=== PATIENT | female | born 1940 | race Caucasian/White ===

== ENCOUNTER → 2016-06-05 | Outpatient (CLI) | payer OTHER ==
[~2016-06-05] MED LIST: BIMA0.01 OPB; CHOL4POW3 PO; GLC500 PO; GLCSR5 PO; GLIP1TAB85 PO; HYZ/50125 PO; LOSARTAN-HCTZ PO; LOVA10TA2 PO; METF-384 PO; MONT1TAB5 PO; MULT-506 PO; PRAV10TA39 PO; SNG10 PO; TMPOPS15 OPB; XLTOPS OPB
[2016-06-05 13:23] LABS: URINE APPEARANCE CLEAR (CLEAR); URINE BILIRUBIN NEG (NEG); URINE COLOR YELLOW; URINE EPITHELIAL CELL AUTO 20-30 /lpf (0-5); URINE NITRITE NEG (NEG); URINE SPECIFIC GRAVITY 1.012 (1.000-1.030); UROBILINOGEN NEG (NEG)
[2016-06-05 13:28] LABS: MANUAL MICROSCOPIC REQUIRED? NO; REVIEW REQ? NO
[2016-06-05 13:43] LABS: BLOOD UREA NITROGEN 17 mg/dl (7-18); GLUCOSE 154 mg/dl (70-99)
[2016-06-05 13:44] LABS: BUN/CREATININE RATIO 15.1 (10-20); CALCIUM 9.8 mg/dl (8.5-10.1); CARBON DIOXIDE 25 mmol/L (21-32); CHLORIDE 106 mmol/L (98-107); SODIUM 142 mmol/L (136-145)
== END | disposition home or self-care (01) ==
LOC: C.LAB1850 12:18
PROVIDERS: ATTEND Allergy & Immunology Allergy
DX: R35.0 Frequency of micturition (principal); R07.9 Chest pain, unspecified; R60.9 Edema, unspecified

== ENCOUNTER → 2016-06-27 | Outpatient (CLI) | payer OTHER ==
[~2016-06-27] MED LIST changes: +CHOL1TAB42 PO; +CHOLPOW PO; +CINN1CAP2 PO; +CYAN100020 PO; +GLC/500 PO; +GLIP-199 PO; +LORA-554 PO; +LOVA10TA3 PO; +NMN5 PO
[2016-06-27 10:52] LABS: URINE APPEARANCE CLEAR (CLEAR); URINE BILIRUBIN NEG (NEG); URINE COLOR YELLOW; URINE NITRITE NEG (NEG); URINE SPECIFIC GRAVITY 1.026 (1.000-1.030); UROBILINOGEN NEG (NEG); ZZUR CULT IF INDIC CLEAN CATCH NO
[2016-06-27 10:53] LABS: MANUAL MICROSCOPIC REQUIRED? YES; REVIEW REQ? NO
[2016-06-27 10:54] LABS: URINE BACTERIA 1+ (NEG); URINE RBC 0-4 /hpf (0-4)
== END | disposition home or self-care (01) ==
LOC: C.LAB1850 09:24
PROVIDERS: ATTEND Physician Assistant Medical
DX: R31.29 Other microscopic hematuria (principal); M79.659 Pain in unspecified thigh

== ENCOUNTER → 2016-08-08 | Outpatient (CLI) | payer OTHER ==
[2016-08-08 09:50] LABS: BASO % 1.2 %; BASO ABS # 0.09 K/uL (0-0.2); COMPLETE YES; EOS % 2.3 %; HEMATOCRIT 39.2 % (37-47); IG% 0.3 %; LYMPH % 25.6 %; LYMPH ABS # 1.91 K/uL (1.2-3.4); MEAN CELL VOLUME 92.5 fL (80-100); MEAN CORPUSCULAR HEMOGLOBIN 31.1 pg (25-34); MEAN CORPUSCULAR HGB CONC 33.7 g/dl (32-36); MEAN PLATELET VOLUME 10.4 fL (7.4-10.4); MONO % 7.1 %; NEUT % 63.5 %; PLATELET COUNT 266 K/uL (130-400); RED BLOOD COUNT 4.24 M/uL (4.2-5.4); WHITE BLOOD COUNT 7.47 K/uL (4.8-10.8)
[2016-08-08 10:02] LABS: ALT/SGPT 27 U/L (12-78); AST/SGOT 16 U/L (15-37); BLOOD UREA NITROGEN 20 mg/dl (7-18); BUN/CREATININE RATIO 16.9 (10-20); CALCIUM 9.1 mg/dl (8.5-10.1); CARBON DIOXIDE 29 mmol/L (21-32); CHLORIDE 111 mmol/L (98-107); GLUCOSE 136 mg/dl (70-99); SODIUM 145 mmol/L (136-145)
[2016-08-08 10:04] LABS: ALB/GLOB RATIO 1.4 (0.9-2); ALKALINE PHOSPHATASE 64 U/L (45-117); CHOLESTEROL 161 mg/dl (0-200); CHOLESTEROL/HDL RATIO 2.9; HDL CHOLESTEROL 56 mg/dl; LDL CHOLESTEROL CALCULATED 68 mg/dl; TRIGLYCERIDES 183 mg/dl (0-150); VERY LOW DENSITY LIPOPROT CALC 37 mg/dl
[2016-08-08 10:27] LABS: ESTIMATED AVERAGE GLUCOSE 169 mg/dl; HA1C FLAG Normal (Normal)
[2016-08-08 10:38] LABS: RATIO 37.1 mcg/mg (0-30.0)
== END | disposition home or self-care (01) ==
LOC: C.LAB 08:17
PROVIDERS: ATTEND Internal Medicine Pulmonary Disease
DX: I10 Essential (primary) hypertension (principal); E78.5 Hyperlipidemia, unspecified; E11.9 Type 2 diabetes mellitus without complications; J30.9 Allergic rhinitis, unspecified

== ENCOUNTER → 2016-08-29 | Outpatient (CLI) | payer OTHER ==
--- NOTE | 2016-08-29 16:16 | MAMMOGRAPHY REPORT ---
BILATERAL DIGITAL SCREENING MAMMOGRAM WITH CAD: 08/29/2016 CLINICAL HISTORY: Routine screening. Patient has no complaints. TECHNIQUE: Bilateral CC and MLO views were obtained. Repeat CC views were obtained to remove skin fo lds. Current study was also evaluated with a Computer Aided Detection (CAD) system. COMPARISON: Comparison is made to exams dated: 08/26/2015 mammogram, 08/24/2014 mammogram, 08/21/2013 genoveva mogram, 08/14/2012 ultrasound, 08/14/2012 mammogram, and 08/08/2012 mammogram - [facility]ter. BREAST COMPOSITION: The tissue of both breasts is almost entirely fatty. FINDINGS: There are moderate vascular calcifications in the breasts. No suspicious mass, architectur al distortion or cluster of microcalcifications is seen. IMPRESSION: ACR BI-RADS CATEGORY 1: NEGATIVE There is no mammographic evidence of malignancy. A 1 year screening mammogram is recommended. The pa tient will receive written notification of the results. Approximately 10% of breast cancers are not detected with mammography. A negative mammographic report should not delay biopsy if a clinically suggestive mass is present. Adele Smith M.D. ay/:08/29/2016 16:00:18 Physician Office Nurse: Justina RUBY(Carmine)(M), [facility] letter sent: Normal 1/2 BI-RADS Code: ACR BI-RADS Category 1: Negative
== END | disposition home or self-care (01) ==
LOC: C.MAMM 08:57
PROVIDERS: ATTEND Obstetrics & Gynecology
DX: Z12.31 Encounter for screening mammogram for malignant neoplasm of breast (principal)

== ENCOUNTER → 2016-09-15 | Outpatient (CLI) | payer OTHER ==
--- NOTE | 2016-09-15 14:48 | DIAGNOSTIC IMAGING REPORT ---
MRI LUMBAR SPINE WITHOUT IV CONTRAST CLINICAL HISTORY: Chronic low back pain with bilateral lower extremity radiculopathy. COMPARISON STUDY: Abdominal CT dated 09/11/2006. TECHNIQUE: MRI of the lumbar spine is performed utilizing various T1 and T2-weighted sequences in the axial and sagittal planes. IV contrast was not administered for this examination. FINDINGS: Lumbar spine: Vertebral body height and alignment are maintained throughout the lumbar spine. Marrow signal intensity is heterogeneous. Anterior osteophytes are seen throughout. There is no evidence of spondylolysis. The transverse and spinous processes are intact as imaged. Chronic degenerative endplate change is seen at all levels. Mild endplate edema is noted at L3-L4 and L4-L5. Small hemangiomas are identified in the bodies of T10 and T11. Intervertebral discs: Degenerative disc desiccation and mild loss of height is seen throughout the lumbar spine. Loss of height is greatest at L3-L4. Spinal cord: The visualized spinal cord is normal in morphology and signal intensity. The conus medullaris terminates at the level of T12. L1-L2: Unremarkable. L2-L3: There is a small posterior disc bulge. No significant acquired compromise of the central canal is seen. Facet arthropathy is of no consequence. The neural foramina are patent. L3-L4: There is broad-based posterior disc bulge with annular fissure. There is no significant acquired compromise of the central canal at this level. Facet arthropathy is of no consequence. The neural foramina are patent. L4-L5: There is a small posterior disc bulge with annular fissure. In conjunction with hypertrophy of the ligamentum flavum there is minimal acquired compromise of the central canal at this level. The minimum AP diameter measures up to 9.5 mm. The disc bulge abuts the transiting right L5 nerve root. Facet arthropathy is of no consequence. The neural foramina are patent. L5-S1: There is a small posterior disc bulge. This causes mild bilateral subarticular stenosis and may abut the exiting bilateral L5 nerve roots. Facet arthropathy causes minimal bilateral neural foraminal stenosis. There is no significant acquired compromise of the central canal at this level. Sacrum: Visualized sacrum is normal in morphology and signal intensity. Soft tissues: There is fatty atrophy of the paraspinous musculature. The kidneys demonstrate cortical atrophy. Parapelvic cysts are noted bilaterally. IMPRESSION: 1. Marrow signal intensity is heterogeneous. No destructive bony lesion is seen. 2. Degenerative disc disease with chronic endplate change and mild endplate edema as above. 3. Mild multilevel lumbosacral spondylosis as above. See discussion for detailed level by level analysis. Dictated: 09/15/2016 2:24 PM Transcribed: 09/15/2016 2:48 PM [email or web address] Electronically signed by: Gabe Noyola M.D. 09/15/2016 2:55 PM Dictated Date/Time: 09/15/2016 2:24 PM
== END | disposition home or self-care (01) ==
LOC: C.MRI 13:24
PROVIDERS: ATTEND Pain Medicine Interventional Pain Medicine
DX: M48.06 Spinal stenosis, lumbar region (principal); M51.36 Other intervertebral disc degeneration, lumbar region; M51.27 Other intervertebral disc displacement, lumbosacral region

== ENCOUNTER → 2016-10-05 | Outpatient (CLI) | payer OTHER ==
[~2016-10-05] MED LIST changes: -CHOL1TAB42 PO; -CHOLPOW PO; -CINN1CAP2 PO; -CYAN100020 PO; -GLC/500 PO; -GLIP-199 PO; -LORA-554 PO; -LOVA10TA3 PO; -NMN5 PO
[2016-10-05 14:58] LABS: BLOOD UREA NITROGEN 24 mg/dl (7-18)
== END | disposition home or self-care (01) ==
LOC: C.LAB 13:05
PROVIDERS: ATTEND Physician Assistant
DX: R41.3 Other amnesia (principal)

== ENCOUNTER 2016-10-06 09:21 | Emergency (ER) | payer OTHER ==
[~2016-10-06] VITALS: Ht 167.6 cm; Wt 67.4 kg
[~2016-10-06 09:21] MED LIST changes: -CHOL4POW3 PO; -HYZ/50125 PO; -LOVA10TA2 PO; -MONT1TAB5 PO; -MULT-506 PO; -TMPOPS15 OPB
[2016-10-06 09:28] VITALS: TEMP 36.4; Ht 167.6 cm; Wt 67.4 kg
[2016-10-06] MEDS ORDERED: XLTOPS OPB (10:14)
[2016-10-06] MEDS ORDERED: CHOL4POW3 PO (10:14)
[2016-10-06] MEDS ORDERED: HYZ/50125 PO (10:14)
[2016-10-06] MEDS ORDERED: LOVA10TA2 PO (10:14)
[2016-10-06] MEDS ORDERED: MONT1TAB5 PO (10:14)
[2016-10-06] MEDS ORDERED: TMPOPS15 OPB (10:14)
[2016-10-06] MEDS ORDERED: MULT-506 PO (10:15)
--- NOTE | 2016-10-06 10:20 | EMERGENCY ROOM VISIT NOTE ---
History Report prepared by Chente: Gregory Juarez Under the Supervision of: Dr. Josue Villagomez M.D. First contact with patient: 10:02 Chief Complaint: RIB PAIN Stated Complaint: SORENESS TO RIGHT HIP History of Present Illness The patient is a 76 year old female who presents to the Emergency Room with complaints of worsening right rib pain starting yesterday. The patient states that she tripped up the stairs four days ago, and she states that it did not hurt until yesterday. The patient denies any shortness of breath, hip pain, or abdominal pain. Source of History: patient Onset: yesterday Position: other (right rib) Timing: worsening Associated Symptoms: No SOB, No abdominal pain Review of Systems All systems have been listed, reviewed, and are negative other than those previously mentioned. Please see Additional Medical History Sheet. Past Medical & Surgical Medical Problems: (1) Benign hypertension (2) Diabetes mellitus (3) Extraction of cataract Surgical Problems: (1) History of cholecystectomy (2) Hysterectomy Family History Cancer Diabetes mellitus Gallbladder disease Heart disease Hypertension Social History Smoking Status: Former Smoker Alcohol Use: none Marital Status: Housing Status: lives with significant other Occupation Status: retired Current/Historical Medications Scheduled Cholestyramine (Cholestyramine), 1 DOSE PO UD Glipizide Xl (Glucotrol Xl), 1 TAB PO DAILY Hctz/Losartan (Hyzaar 12.5MG/50MG), 1 TAB PO DAILY Latanoprost (Latanoprost), 1 DROP OPB UD Lovastatin (Mevacor), 1 TAB PO QAM Metformin HCl (Metformin HCl), 2 TAB PO DAILY Montelukast Sodium (Montelukast Sodium), 1 TAB PO DAILY Multivitamin (Multivitamin), 1 TAB PO DAILY Timolol Maleate (Timolol 0.5% Oph Soln 15 Ml), 1 DROP OPB UD Allergies Coded Allergies: Sulfa Drugs (Unverified Allergy, Mild, 02/03/14) Physical Exam Vital Signs Date Time Temp Pulse Resp B/P (MAP) Pulse Ox O2 Delivery O2 Flow Rate FiO2 10/06/16 11:45 71 16 152/89 95 10/06/16 09:28 36.4 72 18 177/89 99 Room Air Physical Exam GENERAL: Patient awake, alert, oriented x 3. Patient follows commands. Patient does not appear toxic. Patient is adequately hydrated and well- nourished. SKIN: No erythema, pallor, cyanosis or rash HEENT: Normal head, pupils equal, reactive to light and accommodation. LUNGS: Clear to auscultation. No wheezes, no rales, no rhonchi. HEART: No murmurs. No gallops. No rubs ABDOMEN: Bruising over the right 6-9th ribs on the mid-axillary line. There is tenderness in that spot. Soft, nontender. No masses, no rebound, no hepatomegaly or splenomegaly. EXTREMITIES: No signs of trauma or infection. NEUROLOGIC: Cranial nerves II-XII within normal limits. No gross motor sensory function deficits. Medical Decision & Procedures ER Provider Diagnostic Interpretation: X ray results are stated below per my interpretation and the radiologist's interpretation. RIGHT RIBS UNILATERAL WITH PA CHEST CLINICAL HISTORY: 76 years-old Female presenting with FALL Right. TECHNIQUE: Frontal and oblique views of the right ribs and PA view of the chest were obtained. COMPARISON: Chest x-ray from 2013. FINDINGS: Cardiomediastinal silhouette normal. Lungs and pleural spaces clear. Acute fracture of the right lateral seventh rib. Cholecystectomy clips. IMPRESSION: 1. Acute fracture of the right lateral seventh rib. Electronically signed by: Alessandro Cedeno M.D. 10/06/2016 11:04 AM Dictated Date/Time: 10/06/2016 11:00 AM Medications Administered Medications (Trade) Dose Ordered Sig/Jean Route Start Time Stop Time Status Last Admin Dose Admin Ibuprofen (Motrin Tab) 600 mg NOW STAT PO 10/06/16 11:28 10/06/16 11:29 DC 10/06/16 11:44 600 MG ED Course 1002: Past medical records reviewed. The patient was evaluated in room C4. A complete history and physical examination was performed. 1120: Upon reevaluation, the patient appeared to have improvement of her symptoms. I discussed today's findings with her. She verbalized agreement of the treatment plan. She was discharged home. 1128: Ibuprofen 600mg PO Medical Decision Nurses notes reviewed. Medical history sheet reviewed. Differential diagnosis includes but is not limited to: fracture, rib contusion, and pulmonary contusion. Blood Pressure Screening: Patient was found to have an elevated blood pressure and was referred to their primary doctor for recheck and further treatment. Medication Reconciliation: I attest that I have personally reviewed the patient' s current medication list. Clinical findings and imaging match. The patient has a right seventh rib fracture without pneumohemothorax. No evidence of pulmonary contusion. The patient was given ibuprofen here him continue that medication at home. She was advised to follow-up with her family physician regarding follow-up and for her elevated blood pressure. Impression Primary Impression: Closed rib fracture Scribe Attestation The scribe's documentation has been prepared under my direction and personally reviewed by me in its entirety. I confirm that the note above accurately reflects all work, treatment, procedures, and medical decision making performed by me. Departure Information Dispostion Home / Self-Care Referrals Haseeb Mills M.D. (PCP) Forms HOME CARE DOCUMENTATION FORM, IMPORTANT VISIT INFORMATION Patient Instructions ED Fx Rib, My [facility] Additional Instructions 400-600 mg of ibuprofen (2 or 3 Advil) every 6 hours as needed for pain. Follow-up with your family physician within the next 7-10 days for the rib pain and to check your blood pressure.
--- NOTE | 2016-10-06 11:05 | DIAGNOSTIC IMAGING REPORT ---
RIGHT RIBS UNILATERAL WITH PA CHEST CLINICAL HISTORY: 76 years-old Female presenting with FALL Right. TECHNIQUE: Frontal and oblique views of the right ribs and PA view of the chest were obtained. COMPARISON: Chest x-ray from 2014. FINDINGS: Cardiomediastinal silhouette normal. Lungs and pleural spaces clear. Acute fracture of the right lateral seventh rib. Cholecystectomy clips. IMPRESSION: 1. Acute fracture of the right lateral seventh rib. Electronically signed by: Alessandro Cedeno M.D. 10/06/2016 11:04 AM Dictated Date/Time: 10/06/2016 11:00 AM
[2016-10-06] MEDS ORDERED: IBUPROFEN 600 MG TAB PO STA (11:28)
[2016-10-06 11:45] VITALS: BP 152/89; PULSE 71; O2SAT 95
== END 2016-10-06 11:46 | disposition home or self-care (01) ==
LOC: C.EDB 09:22 → C.EDC 11:46
DX: S22.31XA Fracture of one rib, right side, initial encounter for closed fracture (principal); W22.8XXA Striking against or struck by other objects, initial encounter; I10 Essential (primary) hypertension; E11.9 Type 2 diabetes mellitus without complications; Z98.49 Cataract extraction status, unspecified eye; Z90.49 Acquired absence of other specified parts of digestive tract; Z90.710 Acquired absence of both cervix and uterus; Z80.9 Family history of malignant neoplasm, unspecified; Z83.3 Family history of diabetes mellitus; Z82.49 Family history of ischemic heart disease and other diseases of the circulatory system; Z87.891 Personal history of nicotine dependence; Z79.899 Other long term (current) drug therapy

== ENCOUNTER → 2016-10-13 | Outpatient (CLI) | payer OTHER ==
[~2016-10-13] MED LIST changes: -BIMA0.01 OPB; +CHOL4POW3 PO; +GADAVIST IV PRN; -GLCSR5 PO; +HYZ/50125 PO; -LOSARTAN-HCTZ PO; +LOVA10TA2 PO; -METF-384 PO; +MONT1TAB5 PO; +MULT-506 PO; -PRAV10TA39 PO; -SNG10 PO; +TMPOPS15 OPB
--- NOTE | 2016-10-13 09:41 | DIAGNOSTIC IMAGING REPORT ---
BRAIN COMBO CLINICAL HISTORY: R41.3 Memory [id number] COMPARISON STUDY: No previous studies for comparison. TECHNIQUE: Utilizing a 1.5 Nasrin magnet and dedicated coil, multiplanar, multiecho imaging of the brain was performed pre and postcontrast administration. IV administration of 6.5 mL of Gadavist contrast was uneventful. FINDINGS: Diffusion-weighted images are negative for an acute ischemic insult. Mild age-related chronic small vessel change and atrophy. Moderate ventricular prominence raise the possibility of normal pressure hydrocephalus. No significant postcontrast enhancement. IMPRESSION: 1. No evidence for acute ischemic insult. 2. Mild atrophy and chronic small vessel change of aging. 3. Mild hydrocephalus raising the possibility of normal pressure hydrocephalus The above report was generated using voice recognition software. It may contain grammatical, syntax or spelling errors. Electronically signed by: Adan Crow M.D. 10/13/2016 9:40 AM Dictated Date/Time: 10/13/2016 9:35 AM
== END | disposition home or self-care (01) ==
LOC: C.MRIBC 08:46
PROVIDERS: ATTEND Physician Assistant
DX: R41.3 Other amnesia (principal); G91.9 Hydrocephalus, unspecified; G31.9 Degenerative disease of nervous system, unspecified

== ENCOUNTER → 2016-12-22 | Outpatient (CLI) | payer OTHER ==
[~2016-12-22] MED LIST changes: -GADAVIST IV PRN
[2016-12-22 17:10] LABS: LYME DISEASE AB IGM NEG (NEG)
[2016-12-22 17:11] LABS: LYME DISEASE AB IGG NEG (NEG)
[2016-12-25 14:30] LABS: LEAD BLOOD LESS THAN 1 MCG/DL (0-9)
--- NOTE | 2016-12-29 08:33 | CODING QUERY MEDICAL NECESSITY ---
SUPPORTING DIAGNOSIS NEEDED Dr. Mueller, A supporting diagnosis is required for the test/procedure performed on this patient in order for us to be reimbursed by the patient's insurance. Please provide a supporting diagnosis for the following test/procedure listed below next to the test name along with your signature. *If there is no additional diagnosis for this patient that would support the following test/procedure please document that below next to the test/procedure. Test(s)/Procedure(s) that require a supporting diagnosis: * ([id number]) VITAMIN D ASSAY DIAGNOSIS: DATE OF SERVICE: 12/22/16 Provider Signature: Date: Thank you Richard Merida [facility] Information Management Once completed, please kindly fax back to [phone] For questions please call [phone]
== END | disposition home or self-care (01) ==
LOC: C.LAB1850 12:17
PROVIDERS: ATTEND Psychiatry & Neurology Neurology
DX: G62.9 Polyneuropathy, unspecified (principal); R53.83 Other fatigue; R41.3 Other amnesia; E53.8 Deficiency of other specified B group vitamins

== ENCOUNTER → 2017-02-05 | Outpatient (CLI) | payer OTHER ==
[~2017-02-05] MED LIST changes: +BIMA0.01 OPB; +CHOL1TAB42 PO; -CHOL4POW3 PO; +CHOLPOW PO; +CINN1CAP2 PO; +CYAN100020 PO; +GLC/500 PO; -GLC500 PO; +GLIP-199 PO; -GLIP1TAB85 PO; -HYZ/50125 PO; +LORA-554 PO; -LOVA10TA2 PO; +LOVA10TA3 PO; -MONT1TAB5 PO; -MULT-506 PO; +NMN5 PO; +SNG10 PO; -XLTOPS OPB
[2017-02-05 13:13] LABS: ESTIMATED AVERAGE GLUCOSE 177 mg/dl; HA1C FLAG Normal (Normal)
[2017-02-05 13:58] LABS: BLOOD UREA NITROGEN 12 mg/dl (7-18); BUN/CREATININE RATIO 11.7 (10-20); CALCIUM 8.9 mg/dl (8.5-10.1); CARBON DIOXIDE 27 mmol/L (21-32); CHLORIDE 103 mmol/L (98-107); CREATININE 1.06 mg/dl (0.60-1.20); GLUCOSE 173 mg/dl (70-99); POTASSIUM 3.9 mmol/L (3.5-5.1); SODIUM 139 mmol/L (136-145)
[2017-02-05 14:03] LABS: ALB/GLOB RATIO 1.1 (0.9-2); ALKALINE PHOSPHATASE 73 U/L (45-117); ALT/SGPT 20 U/L (12-78); AST/SGOT 11 U/L (15-37); CHOLESTEROL 195 mg/dl (0-200); CHOLESTEROL/HDL RATIO 2.9; HDL CHOLESTEROL 67 mg/dl; LDL CHOLESTEROL CALCULATED 96 mg/dl; TRIGLYCERIDES 161 mg/dl (0-150); VERY LOW DENSITY LIPOPROT CALC 32 mg/dl
== END | disposition home or self-care (01) ==
LOC: C.LABPVFM 07:19
PROVIDERS: ATTEND Internal Medicine Pulmonary Disease
DX: I10 Essential (primary) hypertension (principal); E78.5 Hyperlipidemia, unspecified; E11.9 Type 2 diabetes mellitus without complications; J30.9 Allergic rhinitis, unspecified

== ENCOUNTER → 2017-02-09 | Day surgery (SDC) | payer OTHER ==
[2017-01-30 15:43] VITALS: Ht 161.3 cm; Wt 68.2 kg
[~2017-02-09] VITALS: Ht 161.3 cm; Wt 68.2 kg
[~2017-02-09] MED LIST changes: +ATROPINE SULFATE 0.1 MG/ML 5ML SYR IV PRN; +EpHEDrine SULFATE INJ 50 MG/ML AMP IV PRN; +SODIUM CHLORIDE 0.9% 500ML 500 ML IV ONE
--- NOTE | 2017-02-09 09:09 | Endo History and Physical ---
History & Physical Date of Service: Feb 09, 2017. Chief Complaint: screening Referring Physician: Dr. Haseeb Mills History of Present Illness 76 yo CF who presents for screening colonoscopy. Past Surgical History Hx Cardiac Surgery: No Hx Internal Defibrillator: No Hx Pacemaker: No Hx Abdominal Surgery: Yes (HYSTERECTOMY) Hx of Implantable Prosthesis: No Hx Post-Op Nausea and Vomiting: No Hx Cancer Surgery: No Hx Thoracic Surgery: No Hx Orthopedic: No Hx Urinary Tract Surgery: No Family History None Social History Smoking Status: Former Smoker Hx Substance Use: No Hx Alcohol Use: No Allergies Coded Allergies: Sulfa Drugs (Verified Allergy, Mild, Nausea/Vomitting, 02/09/17) Current Medications Reported Home Medications Medications Dose Route/Sig Max Daily Dose Days Date Category Cholestyramine (Cholestyramine (Bulk)) 1 Pow Pow 1 Dose PO HS 01/30/17 Reported Timolol 0.5% Oph Soln 15 Ml (Timolol Maleate) 15 Ml Soln 1 Drop OPB HS 01/30/17 Reported Lumigan (Bimatoprost) 0.01 % Sharon 1 Drops OPB QAM 30 01/30/17 Reported Montelukast Sodium (Montelukast Sod) 10 Mg Tab 1 Tab PO HS 01/30/17 Reported Cinnamon 500 Mg Cap 1,000 Mg PO QAM 01/30/17 Reported Namenda (Memantine) 5 Mg Tab 1 Tab PO BID 01/30/17 Reported Vitamin B12 (Cyanocobalamin) 1,000 Mcg Tab 1 Tab PO QAM 01/30/17 Reported Vitamin D (Cholecalciferol) 5,000 Unit Tab 1 Tab PO QAM 01/30/17 Reported Allergy Relief (Loratadine) 10 Mg Tab 1 Tab PO QAM 01/30/17 Reported Mevacor (Lovastatin) 10 Mg Tab 10 Mg PO QAM 01/30/17 Reported Glipizide Er (Glipizide) 10 Mg Tab 1 Tab PO QAM 01/30/17 Reported Glucophage (Metformin Hcl) 500 Mg Tab 2 Tab PO BID 01/30/17 Reported Vital Signs Weight (Kilograms): 68.18 Height (Feet): 5 Height (Inches): 3.5 Physical Exam General Appearance: WD/WN, no apparent distress Respiratory/Chest: Auscultation: breath sounds normal Cardiovascular: Heart Auscultation: RRR Abdomen: Bowel Sounds: normal Inspection & Palpation: soft, non-distended, no tenderness, guarding & rebound Assessment and Plan Assessment: 76 yo CF who presents for screening colonoscopy. Plan: Proceed with colonoscopy.
--- NOTE | 2017-02-09 09:24 | Anesthesiology Progress Note ---
Anesthesia Post Op Note Date & Time Feb 09, 2017 at 09:23 Vital Signs Pain Intensity: 0 Vital Signs Past 12 Hours Date Time Temp Pulse Resp B/P (MAP) Pulse Ox O2 Delivery O2 Flow Rate FiO2 02/09/17 09:07 36.4 89 20 152/73 (99) 99 Room Air Notes Mental Status: alert / awake / arousable, participated in evaluation Pt Amnestic to Procedure: Yes Nausea / Vomiting: adequately controlled Pain: adequately controlled Airway Patency, RR, SpO2: stable & adequate BP & HR: stable & adequate Hydration State: stable & adequate Anesthetic Complications: no major complications apparent
--- NOTE | 2017-02-09 09:50 | Discharge Instructions ---
Endoscopy Patient Instructions Date / Procedure(s) Performed Feb 09, 2017. Colonoscopy Allergy Information Coded Allergies: Sulfa Drugs (Verified Allergy, Mild, Nausea/Vomitting, 02/09/17) Discharge Date / Findings Feb 09, 2017. Colon polyps Diverticulosis Internal hemorrhoids Medication Instructions Stopped Medication(s): last Metformin .,last dose all meds on . OK to resume all medications today as prescribed Reported Home Medications Medications Dose Route/Sig Max Daily Dose Days Date Category Cholestyramine (Cholestyramine (Bulk)) 1 Pow Pow 1 Dose PO HS 01/30/17 Reported Timolol 0.5% Oph Soln 15 Ml (Timolol Maleate) 15 Ml Soln 1 Drop OPB HS 01/30/17 Reported Lumigan (Bimatoprost) 0.01 % Sharon 1 Drops OPB QAM 30 01/30/17 Reported Montelukast Sodium (Montelukast Sod) 10 Mg Tab 1 Tab PO HS 01/30/17 Reported Cinnamon 500 Mg Cap 1,000 Mg PO QAM 01/30/17 Reported Namenda (Memantine) 5 Mg Tab 1 Tab PO BID 01/30/17 Reported Vitamin B12 (Cyanocobalamin) 1,000 Mcg Tab 1 Tab PO QAM 01/30/17 Reported Vitamin D (Cholecalciferol) 5,000 Unit Tab 1 Tab PO QAM 01/30/17 Reported Allergy Relief (Loratadine) 10 Mg Tab 1 Tab PO QAM 01/30/17 Reported Mevacor (Lovastatin) 10 Mg Tab 10 Mg PO QAM 01/30/17 Reported Glipizide Er (Glipizide) 10 Mg Tab 1 Tab PO QAM 01/30/17 Reported Glucophage (Metformin Hcl) 500 Mg Tab 2 Tab PO BID 01/30/17 Reported Provider Instructions Activity Restrictions - No exercising or heavy lifting for 24 hours. - Do not drink alcohol the day of the procedure. - Do not drive a car or operate machinery until the day after the procedure. - Do not make any important decisions or sign important papers in 24 hours after the procedure. Following Day: - Return to full activity which may include returning to work/school. Diet Start your diet with liquids and light foods (jello, soup, juice, toast). Then eat your usual diet if not nauseated. Treatment For Common After Affects For mild abdominal pain, bloating, or excessive gas: - Rest - Eat lightly - Lie on right side Follow-Up Information Follow-up with Dr. Haseeb Mills as scheduled Anesthesia Information What You Should Know You have had a procedure that required some medicine to reduce anxiety and discomfort. This treatment is called moderate sedation. After receiving the treatment, you may be sleepy, but you will be able to breathe on your own. The effects of the treatment may last for several hours. Follow these instructions along with Activity/Diet recommendations noted above: * Do NOT do anything where dizziness or clumsiness would be dangerous. * Rest quietly at home today, then you can be up and about tomorrow. * Have a responsible person stay with you the rest of today. * You may have had an I.V. today. If so, you may take the dressing off later today. Recommendations Call your doctor if: * Trouble breathing * Continuous vomiting for more than 24 hours * Temperature above 101 degrees * Severe abdominal pain or bloating * Pain not relieved by pain medicine ordered * There is increased drainage or redness from any incision * A large amount of rectal bleeding greater than 2-3 tablespoons. (If you had a polyp/s removed or have hemorrhoids, a small amount of blood - from the rectum is to be expected.) * You have any unanswered questions or concerns. IN THE EVENT OF A SERIOUS EMERGENCY, GO TO THE NEAREST EMERGENCY ROOM Your discharge instructions were prepared by provider Jeff Jack. Patient Instructions Signature Page Rosalba Masters Patient (or Guardian) Signature/Date: I have read and understand the instructions given to me by my caregivers. Caregiver/RN/Doctor Signature/Date: The above-named patient and/or guardian has received patient instructions on this date. + Original Patient Signature Page (only) stays with chart. Please make copy for patient.
[2017-02-09 10:22] VITALS: BP 139/87; PULSE 73; O2SAT 99
--- NOTE | 2017-02-09 13:59 | GI REPORT ---
Procedure Date: 02/09/2017 9:07 AM Procedure: Colonoscopy Indications: Screening for colorectal malignant neoplasm Medicines: Monitored Anesthesia Care Complications: No immediate complications. Estimated Blood Loss: Estimated blood loss: none. Procedure: Pre-Anesthesia Assessment: - Prior to the procedure, a History and Physical was performed, and patient medications and allergies were reviewed. The patient's tolerance of previous anesthesia was also reviewed. The risks and benefits of the procedure and the sedation options and risks were discussed with the patient. All questions were answered, and informed consent was obtained. Prior Anticoagulants: The patient has taken no previous anticoagulant or antiplatelet agents. ASA Grade Assessment: III - A patient with severe systemic disease. After reviewing the risks and benefits, the patient was deemed in satisfactory condition to undergo the procedure. After I obtained informed consent, the scope was passed under direct vision. Throughout the procedure, the patient's blood pressure, pulse, and oxygen saturations were monitored continuously. The scope was introduced through the anus and advanced to the terminal ileum. The colonoscopy was performed without difficulty. The patient tolerated the procedure well. The quality of the bowel preparation was good. The terminal ileum, ileocecal valve, appendiceal orifice, and rectum were photographed. Findings: Two sessile polyps were found in the cecum. The polyps were 5 to 8 mm in size. These polyps were removed with a hot snare. Resection and retrieval were complete. A 3 mm polyp was found in the cecum. The polyp was sessile. The polyp was removed with a cold biopsy forceps. Resection and retrieval were complete. Multiple small-mouthed diverticula were found in the sigmoid colon. Purulent discharge was seen in association with the diverticular opening, suspicious of diverticulitis. Non-bleeding internal hemorrhoids were found during retroflexion. The hemorrhoids were small. Impression: - Two 5 to 8 mm polyps in the cecum, removed with a hot snare. Resected and retrieved. - One 3 mm polyp in the cecum, removed with a cold biopsy forceps. Resected and retrieved. - Moderate diverticulosis in the sigmoid colon. Purulent discharge was seen in association with the diverticular opening, suspicious of diverticulitis. - Non-bleeding internal hemorrhoids. Recommendation: - Resume previous diet. - Continue present medications. - Repeat colonoscopy for surveillance based on pathology results. - Patient is currently asymptomatic, and therefore no treatment indicated for suspected diverticulitis. - Return to primary care physician as previously scheduled. Jeff Jack, DO 02/09/2017 9:59:58 AM This report has been signed electronically. Note Initiated On: 02/09/2017 9:07 AM I attest to the content of the Intraoperative Record and orders documented therein, exceptions below
== END | disposition home or self-care (01) ==
LOC: C.GI 08:33
PROVIDERS: ATTEND Internal Medicine
DX: Z12.11 Encounter for screening for malignant neoplasm of colon (principal); D12.0 Benign neoplasm of cecum; K57.30 Diverticulosis of large intestine without perforation or abscess without bleeding; K64.8 Other hemorrhoids; E11.9 Type 2 diabetes mellitus without complications; I10 Essential (primary) hypertension; Z88.2 Allergy status to sulfonamides; Z90.710 Acquired absence of both cervix and uterus; Z87.891 Personal history of nicotine dependence

== ENCOUNTER → 2017-08-07 | Outpatient (CLI) | payer OTHER ==
[~2017-08-07] MED LIST changes: -ATROPINE SULFATE 0.1 MG/ML 5ML SYR IV PRN; -EpHEDrine SULFATE INJ 50 MG/ML AMP IV PRN; -SODIUM CHLORIDE 0.9% 500ML 500 ML IV ONE
[2017-08-07 14:05] LABS: BASO % 1.7 %; BASO ABS # 0.12 K/uL (0-0.2); EOS % 1.9 %; EOS ABS # 0.13 K/uL (0-0.5); HEMATOCRIT 39.4 % (37-47); HEMOGLOBIN 13.1 g/dL (12.0-16.0); IG# 0.02 K/uL (0.00-0.02); LYMPH % 30.1 %; LYMPH ABS # 2.11 K/uL (1.2-3.4); MEAN CELL VOLUME 91.6 fL (80-100); MEAN CORPUSCULAR HEMOGLOBIN 30.5 pg (25-34); MEAN CORPUSCULAR HGB CONC 33.2 g/dl (32-36); MEAN PLATELET VOLUME 10.3 fL (7.4-10.4); MONO % 7.8 %; MONO ABS # 0.55 K/uL (0.11-0.59); NEUT % 58.2 %; NEUT ABS # 4.09 K/uL (1.4-6.5); PLATELET COUNT 249 K/uL (130-400); RED CELL DISTRIBUTION WIDTH CV 13.8 % (11.5-14.5); RED CELL DISTRIBUTION WIDTH SD 45.8 fL (36.4-46.3); WHITE BLOOD COUNT 7.02 K/uL (4.8-10.8)
[2017-08-07 14:15] LABS: HEMOGLOBIN A1C 7.4 % (4.5-5.6)
[2017-08-07 14:43] LABS: ALBUMIN 3.7 gm/dl (3.4-5.0); ALT/SGPT 19 U/L (12-78); AST/SGOT 17 U/L (15-37); BLOOD UREA NITROGEN 17 mg/dl (7-18); CARBON DIOXIDE 26 mmol/L (21-32); CHOLESTEROL 192 mg/dl (0-200); CREATININE 1.14 mg/dl (0.60-1.20); GLUCOSE 157 mg/dl (70-99); POTASSIUM 3.6 mmol/L (3.5-5.1); SODIUM 138 mmol/L (136-145)
[2017-08-07 14:53] LABS: ALKALINE PHOSPHATASE 66 U/L (45-117); LDL CHOLESTEROL CALCULATED 101 mg/dl; TOTAL PROTEIN 6.8 gm/dl (6.4-8.2)
== END | disposition home or self-care (01) ==
LOC: C.LABPVFM 07:15
PROVIDERS: ATTEND Internal Medicine Pulmonary Disease
DX: I10 Essential (primary) hypertension (principal); E78.5 Hyperlipidemia, unspecified; E11.9 Type 2 diabetes mellitus without complications; J30.9 Allergic rhinitis, unspecified; E55.9 Vitamin D deficiency, unspecified

== ENCOUNTER 2019-02-16 17:09 | Inpatient (IN) ==
[2019-02-16] MEDS ORDERED: SODIUM CHLORIDE 0.9% 1000ML 1,000 ML IV SCH (17:30)
--- NOTE | 2019-02-16 18:17 | XRay Report ---
XR abdomen 2V w PA chest CLINICAL HISTORY: abd pain and weak pain COMPARISON STUDY: 02/05/2019 FINDINGS: The soft tissues, psoas shadows, renal outlines and intestinal gas pattern appear normal. T here is no evidence for bowel obstruction. There is no evidence for free intraperitoneal air. No abno rmal abdominal calcifications are seen. A frontal view of the chest was performed and is unremarkable . IMPRESSION: Normal study. Central catheter in good position within the superior vena cava. The above report was generated using voice recognition software. It may contain grammatical, syntax or spelling errors. Electronically signed by: Adan Crow M.D. 02/16/2019 6:16 PM
[2019-02-16 18:56] LABS: INR 1.1 (0.9-1.1); Prothrombin Time 10.9 Seconds (9.0-12.0)
[2019-02-16 19:02] LABS: Alanine Aminotransferase 43 U/L (12-78); Aspartate Aminotransferase 64 U/L (15-37); BUN Creatinine Ratio 19.5 (10-20); Blood Urea Nitrogen 22 mg/dl (7-18); Calcium 8.9 mg/dl (8.5-10.1); Carbon Dioxide 21 mmol/L (21-32); Chloride 104 mmol/L (98-107); Est GFR (African American) 55.5; Est GFR (Non-African American) 47.9; Glucose 208 mg/dl (70-99); Magnesium 1.4 mg/dl (1.8-2.4); Potassium 2.8 mmol/L (3.5-5.1); Sodium 135 mmol/L (136-145)
[2019-02-16 19:07] LABS: Echinocytes 2+; Hematocrit (blood only) 26.6 % (37-47); Hemoglobin 9.2 g/dL (12.0-16.0); Mean Corpuscular Hemoglobin 30.5 pg (25-34); Mean Corpuscular Hgb Conc 34.6 g/dL (32-36); Mean Corpuscular Volume 88.1 fL (80-100); Platelet Count 112 K/uL (130-400); RDW Coefficient of Variation 13.1 % (11.5-14.5); RDW Standard Deviation 42.6 fL (36.4-46.3); Red Blood Count 3.02 M/uL (4.2-5.4); White Blood Count 0.85 K/uL (4.8-10.8)
[2019-02-16 19:08] LABS: ALC (manual) 0.01 K/uL (1.2-3.4); Eosinophils # (manual) 0.04 K/uL (0-0.5); Eosinophils % (manual) 4.6 %; Lymphocytes # (manual) 0.01 K/uL (1.2-3.4); Lymphocytes % (manual) 1.1 %; Neutrophils % (manual) 94.3 %
[2019-02-16] MEDS ORDERED: POTASSIUM CHLORIDE 10 MEQ TABCR PO STA (19:08)
[2019-02-16 19:13] LABS: Albumin Globulin Ratio 0.6 (0.9-2); Alkaline Phosphatase 68 U/L (45-117); Bilirubin,Total 1.1 mg/dl (0.2-1); Globulin 3.3 gm/dl (2.5-4.0); Total Protein 5.3 gm/dl (6.4-8.2); Troponin I < 0.015 ng/ml (0-0.045)
[2019-02-16 19:27] LABS: Appearance Urine Cloudy (Clear); Bacteria Urine Automated Negative (Negative); Bilirubin Urine Negative (Negative); Blood Urine Negative (Negative); Color Urine Dark Yellow; Epithelial Cell Urine Auto >30 /lpf (0-5); Glucose Urine UA 1+ (Negative); Ketones Urine 2+ (Negative); Leukocyte Esterase Urine Negative (Negative); Nitrite Urine Negative (Negative); Protein Urine 2+ (Negative); RBC Urine Automated 0-4 /hpf (0-4); Specific Gravity Urine 1.021 (1.000-1.030); Urobilinogen Urine Negative (Negative); pH Urine 5.5 (4.5-7.5)
[2019-02-16] MEDS ORDERED: ONDANSETRON INJ 2 MG/ML 2 ML VIAL IV STA (19:32)
--- NOTE | 2019-02-16 19:40 | Emergency Department Note ---
Entered by Estefanía Damian acting as a scribe for History of Present Illness General Chief complaint: Illness Stated complaint: 2ND ROUND OF CHEMO, VIOLENTLY ILL Source: patient, family ( ) and friends History of Present Illness Onset (ago): day(s) 2 Location: abdomen Pain Consistency: + other (persistent ) Quality: + other (nausea and vomiting ) Associated symptoms: + rash and + other (positive diarrhea; negative burning with urination; negative runny nose; negative sore throat; negative abdominal pain); no cough and no fever/chills The patient is a 78 year old female with PMHx of pancreatic cancer, HTN, diabetes, and hydrocephalus who presents to the Emergency Room with complaints of persistent nausea and vomiting that began 2 days prior to arrival. The patient reports diarrhea during this time as well. She states that she is unable to keep down food, and states that she is only able to keep down small amounts of liquid. The patient's states that the patient's symptoms began after her second chemotherapy treatment on , but the patient's friend at bedside states that the patient's symptoms began after her first chemotherapy treatment. The patient states that she was itchy yesterday, and states that she now has a rash over her abdomen and chest. The patient denies burning with urination, cough, runny nose, sore throat, fevers, and abdominal pain. Per the patient's , the patient has a history of cholecystectomy and hysterectomy. The patient states that she is on 2 nausea medications at home but states that she does not know which medications these are. She also admits that she is having trouble walking without assistance as she is to weak. Home Medications Home Medications Medication Instructions Recorded Confirmed Type bimatoprost 0.03 % eye drops 1 % OP DAILY ml 11/04/18 02/16/19 History multivitamin 1 tab PO QAM 11/04/18 02/16/19 History cholecalciferol (vitamin D3) 5,000 5,000 units PO QAM cap 12/27/18 02/16/19 History unit capsule cyanocobalamin (vitamin B-12) 1,000 mcg PO QAM tab 12/27/18 02/16/19 History 1,000 mcg tablet glipizide 10 mg tablet, extended 10 mg PO QAM #90 tab 12/27/18 02/16/19 History release 24 hr lovastatin 10 mg tablet 10 mg PO QAM #90 tab 12/27/18 02/16/19 History metformin 500 mg tablet 500 mg PO BID #360 tab 12/27/18 02/16/19 History montelukast 10 mg tablet 10 mg PO QAM #1 tab 12/27/18 02/16/19 History timolol maleate 0.5 % once daily 1 drops OPHTHALMIC (EYE) UD ml 12/27/18 02/16/19 History eye drops donepezil 5 mg tablet 5 mg PO HS 90 Days #90 tab 01/08/19 02/16/19 Rx memantine 10 mg tablet 10 mg PO BID #180 tab 01/08/19 02/16/19 Rx losartan-hydrochlorothiazide 1 tab PO QAM 02/03/19 02/16/19 History ondansetron HCl 8 mg PO Q8H 02/16/19 02/16/19 History potassium chloride 20 meq PO DAILY 02/16/19 02/16/19 History prochlorperazine maleate 10 mg PO QID 02/16/19 02/16/19 History Allergies Allergy/AdvReac Type Severity Reaction Status Date / Time azithromycin AdvReac Mild NAUSEA/VOMI Verified 02/05/19 07:04 TTING Sulfa (Sulfonamide AdvReac Mild Nausea/Vomi Verified 02/05/19 07:04 Antibiotics) tting Past Med/Surg History Medical History Alzheimer disease "BEGINING STAGES" Diabetes mellitus, type 2 Glaucoma Hyperlipidemia Hypertension Osteoarthritis Pancreatic adenocarcinoma NO SURGERY Poor historian Spinal stenosis Surgical History H/O hysterectomy with unilateral oophorectomy History of cholecystectomy History of colonoscopy History of dental surgery History of tonsillectomy History of tonsillectomy and adenoidectomy History of varicose vein ligation Family History Father Family history of diabetes mellitus Other Coronary arteriosclerosis Social History Preferred Language: Chinese Communication Ability: Effective 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 and A total of 10 systems reviewed and were otherwise negative Physical Exam Vital Signs Vital Signs - 24 hr 02/16/19 17:15 02/16/19 17:50 02/16/19 19:13 Temperature 36.7 C Temperature Source Oral Pulse Rate 111 H 111 H 104 H Pulse Rate from SpO2 Sensor 108 H Pulse Rhythm Regular Respiratory Rate 22 22 20 Blood Pressure 123/62 128/63 Blood Pressure Mean 82 87 Blood Pressure Position Sitting Pulse Oximetry 99 99 98 Oxygen Delivery Method Room Air Room Air Room Air Sepsis Recent Fever Within 48 Hours No Sepsis New/Unexplained Change in Mental Status No Sepsis Action Taken by Nursing No Action Required GENERAL: Sitting up in bed, disheveled, chronically ill-appearing. EYE EXAM: normal conjunctiva OROPHARYNX: no exudate, no erythema, lips, buccal mucosa, and tongue normal and mucous membranes are moist NECK: supple, no nuchal rigidity, no adenopathy, non-tender CHEST: port left upper chest LUNGS: Clear to auscultation. Normal chest wall mechanics HEART: no murmurs, S1 normal and S2 normal ABDOMEN: abdomen soft, non-tender, normo-active bowel sounds, no masses, no rebound or guarding. BACK: Back is symmetrical on inspection and there is no deformity, no midline tenderness, no CVA tenderness. SKIN: no rashes and no bruising UPPER EXTREMITIES: upper extremities are grossly normal. LOWER EXTREMITIES: No pitting edema. NEURO EXAM: Normal sensorium, cranial nerves II-XII grossly intact, normal speech, no gross weakness of arms, no gross weakness of legs. Course Course ED COURSE: Vital signs were reviewed and showed tachycardia. The patients medical record was reviewed The above diagnostic studies were performed and reviewed. ED treatments and interventions as stated above. 173: The patient was evaluated in room B10. A complete history and physical examination was performed. 3: I checked on and updated the patient on all results. 1855: The patient was unable to urinate so she will get a catheter. She is agreeable with this. 1928: Upon reevaluation, the patient is resting comfortably. I discussed my findings with the patient and she understands and agrees with the treatment plan. Based on the patients age, coexisting illnesses, exam and lab findings the decision to treat as an inpatient was made. The patient remained stable while under my care. 1927: The patient will be evaluated for further management under Dr. Marr[facility] Hospitalist service. Administered Medications Discontinued Medications Sodium Chloride (Nss 1000ml) 1,000 mls @ 999 mls/hr IV .Q1H1M LATOYA Stop: 02/16/19 18:30 Last Admin: 02/16/19 18:35 Dose: 999 mls/hr Documented by: [id number] Potassium Chloride (Klor-Con M10) 40 meq PO NOW STA Stop: 02/16/19 19:09 Last Admin: 02/16/19 19:23 Dose: 40 meq Documented by: [id number] Medical Decision Making Differential Diagnosis Differential Diagnosis includes but is not limited to dehydration, stroke, anemia, hypoglycemia, hyponatremia, hypernatremia, urinary tract infection, pne umonia, bronchitis, sepsis, gastroenteritis, additional abdominal pathology, metabolic abnormalities and infections. Medical Records Attestation: I reviewed the patient's medical records. Home Medications Current Medication List: was personally reviewed by me Laboratory Data Attestation: I reviewed the patient's lab results. Result diagrams: 02/16/19 18:34 02/16/19 18:34 Lab Results 02/16/19 02/16/19 02/16/19 Range/Units 18:34 18:34 18:34 WBC 0.85 L* (4.8-10.8) K/uL RBC 3.02 L (4.2-5.4) M/uL Hgb 9.2 L (12.0-16.0) g/dL Hct 26.6 L (37-47) % MCV 88.1 (80-100) fL MCH 30.5 (25-34) pg MCHC 34.6 (32-36) g/dL RDW Std Deviation 42.6 (36.4-46.3) fL RDW Coeff of Valdo 13.1 (11.5-14.5) % Plt Count 112 L (130-400) K/uL MPV 10.0 (7.4-10.4) fL Neutrophils % (Manual) 94.3 % Lymphocytes % (Manual) 1.1 % Eosinophils % (Manual) 4.6 % Neutrophils # (Manual) 0.80 L (1.4-6.5) K/uL Total Absolute Neuts 0.80 L* (1.4-6.5) K/uL Lymphocytes # (Manual) 0.01 L (1.2-3.4) K/uL Total Abs Lymphocytes 0.01 L (1.2-3.4) K/uL Eosinophils # (Manual) 0.04 (0-0.5) K/uL Echinocytes 2+ PT 10.9 (9.0-12.0) Seconds INR 1.1 (0.9-1.1) Sodium 135 L (136-145) mmol/L Potassium 2.8 L (3.5-5.1) mmol/L Chloride 104 (98-107) mmol/L Carbon Dioxide 21 (21-32) mmol/L Anion Gap 10.0 (3-11) BUN 22 H (7-18) mg/dl Creatinine 1.11 (0.6-1.2) mg/dl Est Cr Clr Drug Dosing Not Reportable Est GFR ( Amer) 55.5 Est GFR (Non-Af Amer) 47.9 BUN/Creatinine Ratio 19.5 (10-20) Glucose 208 H (70-99) mg/dl Lactate (0.4-2.0) mmol/L Calcium 8.9 (8.5-10.1) mg/dl Magnesium 1.4 L (1.8-2.4) mg/dl Total Bilirubin 1.1 H (0.2-1) mg/dl AST 64 H (15-37) U/L ALT 43 (12-78) U/L Alkaline Phosphatase 68 (45-117) U/L Troponin I < 0.015 (0-0.045) ng/ml Total Protein 5.3 L (6.4-8.2) gm/dl Albumin 2.0 L (3.4-5.0) gm/dl Globulin 3.3 (2.5-4.0) gm/dl Albumin/Globulin Ratio 0.6 L (0.9-2) TSH 1.140 (0.300-4.500) uIu/ml Urine Color Urine Appearance (Clear) Urine pH (4.5-7.5) Ur Specific [place] (1.000-1.030) Urine Protein (Negative) Urine Glucose (UA) (Negative) Urine Ketones (Negative) Urine Blood (Negative) Urine Nitrite (Negative) Urine Bilirubin (Negative) Urine Urobilinogen (Negative) Ur Leukocyte Esterase (Negative) 02/16/19 02/16/19 Range/Units 18:34 19:14 WBC (4.8-10.8) K/uL RBC (4.2-5.4) M/uL Hgb (12.0-16.0) g/dL Hct (37-47) % MCV (80-100) fL MCH (25-34) pg MCHC (32-36) g/dL RDW Std Deviation (36.4-46.3) fL RDW Coeff of Valdo (11.5-14.5) % Plt Count (130-400) K/uL MPV (7.4-10.4) fL Neutrophils % (Manual) % Lymphocytes % (Manual) % Eosinophils % (Manual) % Neutrophils # (Manual) (1.4-6.5) K/uL Total Absolute Neuts (1.4-6.5) K/uL Lymphocytes # (Manual) (1.2-3.4) K/uL Total Abs Lymphocytes (1.2-3.4) K/uL Eosinophils # (Manual) (0-0.5) K/uL Echinocytes PT (9.0-12.0) Seconds INR (0.9-1.1) Sodium (136-145) mmol/L Potassium (3.5-5.1) mmol/L Chloride (98-107) mmol/L Carbon Dioxide (21-32) mmol/L Anion Gap (3-11) BUN (7-18) mg/dl Creatinine (0.6-1.2) mg/dl Est Cr Clr Drug Dosing Est GFR ( Amer) Est GFR (Non-Af Amer) BUN/Creatinine Ratio (10-20) Glucose (70-99) mg/dl Lactate 1.0 (0.4-2.0) mmol/L Calcium (8.5-10.1) mg/dl Magnesium (1.8-2.4) mg/dl Total Bilirubin (0.2-1) mg/dl AST (15-37) U/L ALT (12-78) U/L Alkaline Phosphatase (45-117) U/L Troponin I (0-0.045) ng/ml Total Protein (6.4-8.2) gm/dl Albumin (3.4-5.0) gm/dl Globulin (2.5-4.0) gm/dl Albumin/Globulin Ratio (0.9-2) TSH (0.300-4.500) uIu/ml Urine Color Dark Yellow Urine Appearance Cloudy A (Clear) Urine pH 5.5 (4.5-7.5) Ur Specific [place] 1.021 (1.000-1.030) Urine Protein 2+ H (Negative) Urine Glucose (UA) 1+ H (Negative) Urine Ketones 2+ H (Negative) Urine Blood Negative (Negative) Urine Nitrite Negative (Negative) Urine Bilirubin Negative (Negative) Urine Urobilinogen Negative (Negative) Ur Leukocyte Esterase Negative (Negative) Imaging Data Radiologist's Impression: Radiology results as stated below per my review and the radiologist's interpretation: XR abdomen 2V w PA chest CLINICAL HISTORY: abd pain and weak pain COMPARISON STUDY: 02/05/2019 FINDINGS: The soft tissues, psoas shadows, renal outlines and intestinal gas pattern appear normal. There is no evidence for bowel obstruction. There is no evidence for free intraperitoneal air. No abnormal abdominal calcifications are seen. A frontal view of the chest was performed and is unremarkable. IMPRESSION: Normal study. Central catheter in good position within the superior vena cava. The above report was generated using voice recognition software. It may contain grammatical, syntax or spelling errors. Electronically signed by: Adan Crow M.D. 02/16/2019 6:16 PM ECG Data Attestation: I personally reviewed and interpreted this ECG as follows: Indication: + weakness Rate (beats per minute): 98 Rhythm: + sinus rhythm ECG Intervals/blocks: + Normal QT ECG [place]: + Left axis deviation ECG Findings: no PVCs Blood Pressure Blood Pressure Findings: Elevated blood pressure Blood Pressure Disposition: elevated BP felt to be situational MDM Narrative Patient is a 78-year-old female with a past medical history of pancreatic cancer who was just recently started on chemo and restarted received her second dose this past . Following this she has had persistent nausea vomiting and diarrhea. Unable to keep much down. She notes she is been unable to eat. Consequently she is having trouble walking by herself and needs assistance as s he is so run down. IV was established blood work was obtained. Hemoglobin 9.2 consistent with previous. Patient with moderate neutropenia of 800. INR was unremarkable. BMP with a hypokalemia at 2.8. LFTs bilirubin troponin and TSH was unremarkable. UA was unremarkable. Patient was given IV fluids, IV Zofran and potassium. She had persistent diarrhea while she was here. She was tachycardic with a heart rate in the 110s. She has no abdominal pain. Abdominal exam is completely benign. Obstruction series was unremarkable. Patient was updated bedside and as she is having significant difficulties with ambulation, unable to keep anything down and is dehydrated felt was reasonable to bring her in and watch her overnight. Discussed with the hospitalist. Impression & Plan Vomiting, Diarrhea, Hypokalemia, Weakness, Neutropenia Discharge Plan Visit Data Chief Complaint: Illness Stated Complaint: 2ND ROUND OF CHEMO, VIOLENTLY ILL ED Provider: Andrew Montana Discharge Problem: Vomiting, Diarrhea, Hypokalemia, Weakness, Neutropenia Patient Disposition: Being Evaluated by Hospitalist Forms Stand Alone Forms: [facility] Prescriptions Prescriptions: No Action cholecalciferol (vitamin D3) 5,000 unit capsule 5,000 units PO QAM RF: 0 cyanocobalamin (vitamin B-12) 1,000 mcg tablet 1,000 mcg PO QAM RF: 0 glipizide 10 mg tablet extended release 24hr 10 mg PO QAM Qty: 90 RF: 0 lovastatin 10 mg tablet 10 mg PO QAM Qty: 90 RF: 0 metformin 500 mg tablet 500 mg PO BID Qty: 360 RF: 0 montelukast 10 mg tablet 10 mg PO QAM Qty: 1 RF: 0 timolol maleate 0.5 % drops, once daily 1 drops ophthalmic (eye) UD RF: 0 bimatoprost 0.03 % drops 1 % OP DAILY RF: 0 multivitamin [Daily Multi-Vitamin] tablet 1 tab PO QAM RF: 0 memantine 10 mg tablet 10 mg PO BID Qty: 180 RF: 3 donepezil 5 mg tablet 5 mg PO HS 90 Days Qty: 90 RF: 3 losartan-hydrochlorothiazide 100-12.5 mg tablet 1 tab PO QAM RF: 0 ondansetron HCl 8 mg tablet 8 mg PO Q8H RF: 0 prochlorperazine maleate 10 mg tablet 10 mg PO QID RF: 0 potassium chloride 20 mEq tablet,ER particles/crystals 20 meq PO DAILY RF: 0 Referrals Referrals: Haseeb Mills MD [Primary Care Provider] - Discharge Problem: Vomiting Qualifiers: Vomiting type: unspecified Vomiting Intractability: non-intractable Nausea presence: with nausea Qualified Code(s): R11.2 - Nausea with vomiting, unspecified Diarrhea Qualifiers: Diarrhea type: unspecified type Qualified Code(s): R19.7 - Diarrhea, unspecified Neutropenia Qualifiers: Neutropenia type: secondary to cancer chemotherapy Qualified Code(s): D70.1 - Agranulocytosis secondary to cancer chemotherapy The lindaibe's documentation has been prepared under my direction and personally reviewed by me in its entirety. I confirm that the note above accurately reflects all work, treatment, procedures, and medical decision making performed by me.
[2019-02-16 21:04] LABS: Phosphorus 2.3 mg/dl (2.5-4.9)
--- NOTE | 2019-02-16 21:19 | History & Physical Report ---
Date of Service February 16, 2019 Assessment & Plan (1) Vomitin-year-old female with history of metastatic pancreatic adenocarcinoma stage IV, hypertension, hyperlipidemia, DM 2, Mazon's disease presents with nausea/vomiting, diarrhea and weakness status post second round of chemo 4 days ago Nausea/vomiting/diarrhea Likely in the setting of chemotherapy versus possible C. difficile versus other infectious etiology given neutropenia WBC 0.85 and ANC 800, afebrile, mildly tachycardic to 100s Mild LFT abnormalities: Total bili 1.1, AST 64 Chest and abdominal x-ray: Normal, central cath in good position C. difficile pending Zofran and Compazine as needed Tylenol as needed for pain Oncologist consulted: Dr. Scruggs Weakness Likely secondary to chemotherapy versus electrolyte abnormalities versus dehydration in the setting of diarrhea and vomiting EE normal sinus rhythm QTc 439 Troponin negative Potassium 2.8 Received 40 mix p.o. in the ED, ordered 60 meq IV On KCl 20 meqs daily at home Mag 1.4 Mag sulfate 2 g ordered Phosphate ordered Albumin 2, prealbumin ordered Elevated BUN/creatinine ratio 22/1.1, 2+ ketones in urine -concerning for dehydration Dietitian consult ordered PT OT and discharge planning ordered Rash Likely drug reaction from chemotherapy Hydrocortisone order to help with pruritus Anemia Appears chronic and possibly exacerbated by chemotherapy Hemoglobin 9.2, was 9.8 on 02/13/2019 -stable Continue B12 supplement To to monitor CBC Leukopenia with neutropenia WBC 0.85 down from 5.5 on 1121, ANC 800 Likely in the setting of chemotherapy No concern for acute infection at this time Patient is afebrile Neutropenic precautions Continue to monitor CBC Thrombocytopenia Platelet 112 down from 191 on 02/13 Likely secondary to chemotherapy Continue to monitor Hypertension Hold home losartan/HCTZ in the setting of hypokalemia and dehydration Started on losartan 100 mg daily (home dose without hydrochlorothiazide) Hyperlipidemia Continue home lovastatin DM2 Hold metformin and glipizide Started on sliding scale insulin Alzheimer's Continue home amantadine and donepezil Glaucoma Continue home eyedrops FEN/GI: Electrolytes of the above, LR 80cc/h x 2 bags, DM2 diet DVT prophylaxis: Lovenox 30 mg daily subcu Code: Full per discussion with patient and family Disposition: MedSurg with telemetry, PT OT and discharge planning ordered (2) Diarrhea: (3) Hypokalemia: (4) Weakness: (5) Neutropenia: (6) Port-A-Cath in place: (7) Vitamin B12 deficiency: (8) Essential hypertension: (9) Glaucoma: (10) Dyslipidemia: (11) Diabetes mellitus: History of Present Illness Chief Complaint: Nausea, vomiting, diarrhea, weakness Primary Care Provider: Haseeb Mills MD 78-year-old female with history of metastatic pancreatic adenocarcinoma stage IV, hypertension, hyperlipidemia, DM 2, Mazon's disease presents with nausea/vomiting, diarrhea and weakness status post second round of chemo 4 days ago. Patient was recently diagnosed with pancreatic cancer and started on chemotherapy (gemcitabine and Abraxane). After her first round of chemo she became very weak and bedbound. After his second round about 4 days ago she developed nausea/vomiting multiple times times a day and diarrhea multiple times a day as well. She denies any hematochezia or melena. She has been unable to keep anything down. Occasionally she has abdominal pain but none right now. She also developed a pruritic rash on her back and chest after her second chemo. She denies any fever, chills, lightheadedness, headache, chest pain, shortness of breath, dysuria, increased urinary frequency, hematuria. She sees Dr. Scruggs Surgical history: Hysterectomy and cholecystectomy Allergies Allergy/AdvReac Type Severity Reaction Status Date / Time azithromycin AdvReac Mild NAUSEA/VOMI Verified 02/05/19 07:04 TTING Sulfa (Sulfonamide AdvReac Mild Nausea/Vomi Verified 02/05/19 07:04 Antibiotics) tting Home Medications Home Medications Medication Instructions Recorded Confirmed Type bimatoprost 0.03 % eye drops 1 % OP DAILY ml 11/04/18 02/16/19 History multivitamin 1 tab PO QAM 11/04/18 02/16/19 History cholecalciferol (vitamin D3) 5,000 5,000 units PO QAM cap 12/27/18 02/16/19 History unit capsule cyanocobalamin (vitamin B-12) 1,000 mcg PO QAM tab 12/27/18 02/16/19 History 1,000 mcg tablet glipizide 10 mg tablet, extended 10 mg PO QAM #90 tab 12/27/18 02/16/19 History release 24 hr lovastatin 10 mg tablet 10 mg PO QAM #90 tab 12/27/18 02/16/19 History metformin 500 mg tablet 500 mg PO BID #360 tab 12/27/18 02/16/19 History montelukast 10 mg tablet 10 mg PO QAM #1 tab 12/27/18 02/16/19 History timolol maleate 0.5 % once daily 1 drops OPHTHALMIC (EYE) UD ml 12/27/18 02/16/19 History eye drops donepezil 5 mg tablet 5 mg PO HS 90 Days #90 tab 01/08/19 02/16/19 Rx memantine 10 mg tablet 10 mg PO BID #180 tab 01/08/19 02/16/19 Rx losartan-hydrochlorothiazide 1 tab PO QAM 02/03/19 02/16/19 History ondansetron HCl 8 mg PO Q8H 02/16/19 02/16/19 History potassium chloride 20 meq PO DAILY 02/16/19 02/16/19 History prochlorperazine maleate 10 mg PO QID 02/16/19 02/16/19 History Past Med/Surg History Medical History Alzheimer disease "BEGINING STAGES" Diabetes mellitus, type 2 Glaucoma Hyperlipidemia Hypertension Osteoarthritis Pancreatic adenocarcinoma NO SURGERY Poor historian Spinal stenosis Surgical History H/O hysterectomy with unilateral oophorectomy History of cholecystectomy History of colonoscopy History of dental surgery History of tonsillectomy History of tonsillectomy and adenoidectomy History of varicose vein ligation Family History Father Family history of diabetes mellitus Other Coronary arteriosclerosis Social History Preferred Language: Wolof Communication Ability: Effective Pbx Teacher Required: No Beliefs That Will Affect Care: None marital status: Current Living Situation: Spouse current occupational status: retired Feels Safe at Home: Yes Smoking Status: Never smoker Second Hand Exposure: No ; Hx Alcohol Use: No Hx Substance Use: No Review of Systems Review of Systems: As per HPI Physical Exam Physical Exam: General: In NAD, pleasant HEENT: dry oral mucosa Neuro: A&O x 3 (to person, place and situation not time) Pulm: CTAB equal breath sounds bilaterally CV: RRR, no m/r/g, cap refill 3 secs Abdomen:+BS, no TTP in all quadrants, non-distended LE: no LE edema, no calf TTP Skin: papular erythematous rash on torso and back Results & Data Vital Signs (Past 12 Hours) Vital Signs Temp Pulse Resp BP Pulse Ox 02/16/19 19:13 104 H 20 128/63 98 02/16/19 17:50 111 H 22 99 02/16/19 17:15 36.7 C 111 H 22 123/62 99 Laboratory Results Abnormal lab results 02/16/19 02/16/19 02/16/19 Range/Units 18:34 18:34 19:14 WBC 0.85 L* (4.8-10.8) K/uL RBC 3.02 L (4.2-5.4) M/uL Hgb 9.2 L (12.0-16.0) g/dL Hct 26.6 L (37-47) % Plt Count 112 L (130-400) K/uL Neutrophils # (Manual) 0.80 L (1.4-6.5) K/uL Total Absolute Neuts 0.80 L* (1.4-6.5) K/uL Lymphocytes # (Manual) 0.01 L (1.2-3.4) K/uL Total Abs Lymphocytes 0.01 L (1.2-3.4) K/uL Sodium 135 L (136-145) mmol/L Potassium 2.8 L (3.5-5.1) mmol/L BUN 22 H (7-18) mg/dl Glucose 208 H (70-99) mg/dl Magnesium 1.4 L (1.8-2.4) mg/dl Total Bilirubin 1.1 H (0.2-1) mg/dl AST 64 H (15-37) U/L Total Protein 5.3 L (6.4-8.2) gm/dl Albumin 2.0 L (3.4-5.0) gm/dl Albumin/Globulin Ratio 0.6 L (0.9-2) Urine Appearance Cloudy A (Clear) Urine Protein 2+ H (Negative) Urine Glucose (UA) 1+ H (Negative) Urine Ketones 2+ H (Negative) U Epithel Cells (Auto) >30 H (0-5) /lpf Granular Casts 1-5 H (0) /lpf Diagnostic Findings XR abdomen 2V w PA chest CLINICAL HISTORY: abd pain and weak pain COMPARISON STUDY: 02/05/2019 FINDINGS: The soft tissues, psoas shadows, renal outlines and intestinal gas pattern appear normal. There is no evidence for bowel obstruction. There is no evidence for free intraperitoneal air. No abnormal abdominal calcifications are seen. A frontal view of the chest was performed and is unremarkable. IMPRESSION: Normal study. Central catheter in good position within the superior vena cava. Code Status & VTE Plan Code Status Full VTE Prophylaxis Plan VTE Prophylaxis will be ordered: Yes Supervising Physician Co-Signing Physician Notes Patient seen and examined, chart reviewed, case discussed with Dr. Noriega and I agree with her assessment and plan as documented above. Briefly, patient is a 78-year-old female with history of diabetes/hypertension/Alzheimer dementia/pancreatic cancer with peritoneal metastasis. She is presently on chemotherapy and received her second treatment on after which she became quite ill with nausea/vomiting/diarrhea and diffuse weakness. On physical exam she is afebrile, tachycardic otherwise hemodynamically stable, adequate oxygenation on room air with no respiratory distress Generalchronically ill-appearing female in no acute distress Skinpapular rash noted on shoulders and neck, no evidence of secondary infection, no bleeding HEENT-normocephalic/atraumatic, pupils equal round intact to light, anicteric sclera, slightly dry mucous membranes, neck supple Heart+ S1/S2, regular, no murmurs rubs or gallops, tachycardic to 106, PermCath in left chest nontender to palpation Lungsequal air entry bilaterally no rales/rhonchi/wheezes Abdomensoft, nontender, nondistended Extremitieswarm Labs and images reviewed. Significant for pancytopenia with WBC = 0.85 with total absolute neutrophils of 0.8, Hgb = 9.2, HCT = 26.6 (normoch romic/normocytic), platelets = 112 Also with mild hyponatremia = 135, K = 2.8, BUN = 22, glucose = 208 P.o. 4 = 2.3, MG = 1.4 CT abdomennormal study Assessment/[id number] female with diabetes/hypertension/dementia, metastatic pancreatic cancer on chemotherapy presenting with nausea/vomiting/diarrhea/weakness, multiple electrolyte abnormalities, volume contraction and p.o. intolerance Check C. difficile Supportive care with IV fluids, electrolyte repletion, antiemetics and pain control as needed Patient neutropenic but afebrile at this time. Will initiate neutropenic preca utions and monitor closely for evidence of infection Remainder of plan as above Resident Activity Tracking Resident Involvement: Resident Care Provided Care Provided: Adult Hospital Medicine (1) Diarrhea Diarrhea type: unspecified type Qualified Code(s): R19.7 - Diarrhea, unspecified (2) Neutropenia Neutropenia type: secondary to cancer chemotherapy Qualified Code(s): D70.1 - Agranulocytosis secondary to cancer chemotherapy; T45.1X5A - Adverse effect of antineoplastic and immunosuppressive drugs, initial encounter (3) Vomiting Nausea presence: with nausea Vomiting Intractability: non-intractable Vomiting type: unspecified Qualified Code(s): R11.2 - Nausea with vomiting, unspecified
[2019-02-16] MEDS ORDERED: POTASSIUM PHOS 3 MMOL/1 ML INFUSION IV STA (21:21)
[2019-02-16] MEDS ORDERED: POTASSIUM PHOSPHATE 15 MMOL in SODIUM CHLORIDE 0.9% 250 ML IV ONE (21:30)
--- NOTE | 2019-02-16 22:23 | Billing Data ---
Coding Level of Care Code 69712 Initial Inpt Care Lvl 3
[2019-02-16] MEDS ORDERED: NON-FORMULARY MEDICATION (Losartan-Hydrochlorothiazide 1 TAB) PO SCH (22:56)
[2019-02-16] MEDS ORDERED: ACETAMINOPHEN 325 MG TAB PO PRN (22:56)
[2019-02-16] MEDS: MEMANTINE HCL 10 MG TAB PO SCH (23:50)
[2019-02-16] MEDS: DONEPEZIL HCL 5 MG TAB PO SCH (23:51)
[2019-02-16] MEDS: HYDROCORTISONE 1% CRM 30 GM TUBE EXT SCH (23:52)
[2019-02-16] MEDS: ENOXAPARIN INJ 30 MG/0.3 ML SYR SQ SCH (23:56)
[2019-02-16] MEDS: LACTATED RINGER'S 1,000 ML IV SCH (23:59)
[2019-02-17] MEDS: MAGNESIUM SULFATE / D5W 1 GM/100 ML BAG IV SCH ×2 (00:01→01:12)
[2019-02-17] MEDS: POTASSIUM CHLORIDE / WTR 20 MEQ/100 ML PLCT IV SCH ×3 (00:01→03:27)
[2019-02-17] MEDS: INSULIN ASPART 100 UNITS/ML 3 ML PEN SC SCH ×5 (00:15→21:27)
[2019-02-17] MEDS: ONDANSETRON INJ 2 MG/ML 2 ML VIAL IV PRN (07:56)
[2019-02-17] MEDS: HYDROCORTISONE 1% CRM 30 GM TUBE EXT SCH ×2 (08:08→19:43)
[2019-02-17] MEDS: MULTIVITAMIN TAB PO SCH ×2 (08:43→09:26)
[2019-02-17] MEDS: MEMANTINE HCL 10 MG TAB PO SCH ×2 (08:43→19:40)
[2019-02-17] MEDS: LOVASTATIN 20 MG TAB PO SCH ×2 (08:44→09:26)
[2019-02-17] MEDS: TIMOLOL MALEATE 0.5% OP SOLN 5 ML BTL OP SCH (08:44)
[2019-02-17] MEDS: CHOLECALCIFEROL 1,000 UNITS TAB PO SCH ×2 (08:45→09:27)
[2019-02-17] MEDS: CYANOCOBALAMIN 500 MCG TABLET (VITAMIN B-12) PO SCH ×2 (08:45→09:27)
[2019-02-17] MEDS: MONTELUKAST SODIUM 10 MG TABLET PO SCH ×2 (08:46→09:27)
[2019-02-17 08:47] LABS: Hematocrit (blood only) 25.4 % (37-47); Hemoglobin 8.8 g/dL (12.0-16.0); Mean Corpuscular Hemoglobin 30.7 pg (25-34); Mean Corpuscular Hgb Conc 34.6 g/dL (32-36); Mean Corpuscular Volume 88.5 fL (80-100); Mean Platelet Volume 9.8 fL (7.4-10.4); Platelet Count 128 K/uL (130-400); RDW Coefficient of Variation 13.2 % (11.5-14.5); RDW Standard Deviation 42.7 fL (36.4-46.3); Red Blood Count 2.87 M/uL (4.2-5.4); White Blood Count 1.46 K/uL (4.8-10.8)
[2019-02-17] MEDS ORDERED: hydroCHLOROthiazide 25 MG TAB PO SCH (09:00)
[2019-02-17 09:16] LABS: Albumin Level 1.9 gm/dl (3.4-5.0); Aspartate Aminotransferase 50 U/L (15-37); BUN Creatinine Ratio 20.5 (10-20); Blood Urea Nitrogen 20 mg/dl (7-18); Calcium 8.5 mg/dl (8.5-10.1); Carbon Dioxide 17 mmol/L (21-32); Chloride 110 mmol/L (98-107); Est GFR (African American) 64.5; Est GFR (Non-African American) 55.6; Glucose 238 mg/dl (70-99); Potassium 3.9 mmol/L (3.5-5.1); Sodium 138 mmol/L (136-145)
[2019-02-17 09:23] LABS: Echinocytes 1+; Eosinophils # (auto) 0.04 K/uL (0-0.5); Eosinophils % (auto) 2.7 %; Immature Granulocytes # (auto) 0.04 K/uL (0.00-0.02); Immature Granulocytes % (auto) 2.7 %; Lymphocytes # (auto) 0.07 K/uL (1.2-3.4); Lymphocytes % (auto) 4.8 %; Monocytes # (auto) 0.02 K/uL (0.11-0.59); Monocytes % (auto) 1.4 %; Neutrophils # (auto) 1.29 K/uL (1.4-6.5); Neutrophils % (auto) 88.4 %; Toxic Granulation 2+
[2019-02-17 09:25] LABS: Alanine Aminotransferase 42 U/L (12-78); Alkaline Phosphatase 71 U/L (45-117); Bilirubin Direct 0.2 mg/dl (0-0.2); Bilirubin,Total 0.7 mg/dl (0.2-1); Phosphorus 2.1 mg/dl (2.5-4.9); Prealbumin 4.6 mg/dl (20-40)
[2019-02-17] MEDS: LOSARTAN POTASSIUM 50 MG TAB PO SCH (12:07)
[2019-02-17] MEDS: LACTATED RINGER'S 1,000 ML IV SCH (12:08)
[2019-02-17] MEDS: PROCHLORPERAZINE 5 MG in SYRINGE 4 ML IV PRN (12:20)
[2019-02-17] MEDS ORDERED: POTASSIUM PHOS 3 MMOL/1 ML INFUSION IV STA (15:10)
[2019-02-17] MEDS ORDERED: POTASSIUM PHOSPHATE 9 MMOL in SODIUM CHLORIDE 0.9% 250 ML IV STA (15:17)
--- NOTE | 2019-02-17 16:44 | Oncology Consultation ---
Date of Consultation February 17, 2019 Assessment & Plan (1) Vomiting: She has chemotherapy-induced nausea and vomiting. She was looking much better today, reflecting her repleted electrolytes and improved hydration. She is still nauseous and is receiving IV Zofran. I would continue to monitor her and give her some IV hydration for now. If her nausea proves refractory, we can add some other agents. I will postpone her planned third dose of treatment this week and we will plan on reducing her doses again for cycle 2 in 2 weeks. Present on Admission?: Yes History of Present Illness Reason for Consultation: Nausea, vomiting, and diarrhea Metastatic pancreatic cancer Attending Physician: Davis Mata MD History of Present Illness Ms. Masters is a 78 year old woman who is under my care for her pancreatic cancer. It was diagnosed recently and she started her first cycle of chemotherapy with gemcitabine and Abraxane on 02/06/19. When she was in last week for day 8 of cycle 1, we gave her some detailed written instructions on how to manage her antiemetics and when to call. It seems this intervention was unsuccessful and she presented yesterday with nausea, vomiting, dehydration, and electrolyte derangements. She is feeling better after some hydration and elec trolyte repletion. She denied any pain during our conversation. She was open to continuing treatment, but didn't think she could go forward with what she did this time. Allergies Allergy/AdvReac Type Severity Reaction Status Date / Time azithromycin AdvReac Mild NAUSEA/VOMI Verified 02/05/19 07:04 TTING Sulfa (Sulfonamide AdvReac Mild Nausea/Vomi Verified 02/05/19 07:04 Antibiotics) tting Home Medications Home Medications Medication Instructions Recorded Confirmed Type bimatoprost 0.03 % eye drops 1 % OP DAILY ml 11/04/18 02/16/19 History multivitamin 1 tab PO QAM 11/04/18 02/16/19 History cholecalciferol (vitamin D3) 5,000 5,000 units PO QAM cap 12/27/18 02/16/19 History unit capsule cyanocobalamin (vitamin B-12) 1,000 mcg PO QAM tab 12/27/18 02/16/19 History 1,000 mcg tablet glipizide 10 mg tablet, extended 10 mg PO QAM #90 tab 12/27/18 02/16/19 History release 24 hr lovastatin 10 mg tablet 10 mg PO QAM #90 tab 12/27/18 02/16/19 History metformin 500 mg tablet 500 mg PO BID #360 tab 12/27/18 02/16/19 History montelukast 10 mg tablet 10 mg PO QAM #1 tab 12/27/18 02/16/19 History timolol maleate 0.5 % once daily 1 drops OPHTHALMIC (EYE) UD ml 12/27/18 02/16/19 History eye drops donepezil 5 mg tablet 5 mg PO HS 90 Days #90 tab 01/08/19 02/16/19 Rx memantine 10 mg tablet 10 mg PO BID #180 tab 01/08/19 02/16/19 Rx losartan-hydrochlorothiazide 1 tab PO QAM 02/03/19 02/16/19 History ondansetron HCl 8 mg PO Q8H 02/16/19 02/16/19 History potassium chloride 20 meq PO DAILY 02/16/19 02/16/19 History prochlorperazine maleate 10 mg PO QID 02/16/19 02/16/19 History Patient History Medical History Alzheimer disease "BEGINING STAGES" Diabetes mellitus, type 2 Glaucoma Hyperlipidemia Hypertension Osteoarthritis Pancreatic adenocarcinoma NO SURGERY Poor historian Spinal stenosis Surgical History H/O hysterectomy with unilateral oophorectomy History of cholecystectomy History of colonoscopy History of dental surgery History of tonsillectomy History of tonsillectomy and adenoidectomy History of varicose vein ligation Family History Father Family history of diabetes mellitus Other Coronary arteriosclerosis Social History Preferred Language: Yakut Communication Ability: Effective Perianesthesia Manager Required: No Beliefs That Will Affect Care: None marital status: Current Living Situation: Spouse current occupational status: retired Feels Safe at Home: Yes Smoking Status: Never smoker Second Hand Exposure: No ; Hx Alcohol Use: No Hx Substance Use: No Review of Systems Review of Systems: All systems reviewed & are unremarkable except as noted in HPI & below Physical Exam Constitutional: + thin and comfortable; no acute distress Eyes: + anicteric sclerae ENMT: external ear and nose normal, oropharynx normal Respiratory: normal respiratory effort, lungs clear to auscultation Cardiovascular: RRR, no murmur, no edema Gastrointestinal (Abdomen): Inspection/Auscultation: normal bowel sounds; abdomen not distended Percussion/Palpation: abdomen soft; abdomen nontender Lymphatic: no cervical or axillary lymphadenopathy Results & Data Vital Signs (Past 12 Hours) Vital Signs Temp Pulse Pulse Resp BP BP Pulse Ox 02/17/19 14:37 37.2 C 95 H 18 105/59 L 98 02/17/19 11:41 37.4 C 96 H 20 111/63 96 02/17/19 07:25 37.4 C 103 H 16 117/69 100 02/17/19 07:00 94 H 02/17/19 04:52 36.4 C L 96 H 20 116/65 Laboratory Results Abnormal lab results 02/16/19 02/16/19 02/16/19 Range/Units 18:34 18:34 19:14 WBC 0.85 L* (4.8-10.8) K/uL RBC 3.02 L (4.2-5.4) M/uL Hgb 9.2 L (12.0-16.0) g/dL Hct 26.6 L (37-47) % Plt Count 112 L (130-400) K/uL Immature Gran # (Auto) (0.00-0.02) K/uL Neut # (Auto) (1.4-6.5) K/uL Lymph # (Auto) (1.2-3.4) K/uL [place] # (Auto) (0.11-0.59) K/uL Neutrophils # (Manual) 0.80 L (1.4-6.5) K/uL Total Absolute Neuts 0.80 L* (1.4-6.5) K/uL Lymphocytes # (Manual) 0.01 L (1.2-3.4) K/uL Total Abs Lymphocytes 0.01 L (1.2-3.4) K/uL Sodium 135 L (136-145) mmol/L Potassium 2.8 L (3.5-5.1) mmol/L Chloride (98-107) mmol/L Carbon Dioxide (21-32) mmol/L BUN 22 H (7-18) mg/dl BUN/Creatinine Ratio (10-20) Glucose 208 H (70-99) mg/dl POC Glucose (70-99) Phosphorus 2.3 L (2.5-4.9) mg/dl Magnesium 1.4 L (1.8-2.4) mg/dl Total Bilirubin 1.1 H (0.2-1) mg/dl AST 64 H (15-37) U/L Total Protein 5.3 L (6.4-8.2) gm/dl Albumin 2.0 L (3.4-5.0) gm/dl Albumin/Globulin Ratio 0.6 L (0.9-2) Prealbumin (20-40) mg/dl Urine Appearance Cloudy A (Clear) Urine Protein 2+ H (Negative) Urine Glucose (UA) 1+ H (Negative) Urine Ketones 2+ H (Negative) U Epithel Cells (Auto) >30 H (0-5) /lpf Granular Casts 1-5 H (0) /lpf 02/16/19 02/17/19 02/17/19 Range/Units 23:44 07:39 08:28 WBC 1.46 L (4.8-10.8) K/uL RBC 2.87 L (4.2-5.4) M/uL Hgb 8.8 L (12.0-16.0) g/dL Hct 25.4 L (37-47) % Plt Count 128 L (130-400) K/uL Immature Gran # (Auto) 0.04 H (0.00-0.02) K/uL Neut # (Auto) 1.29 L (1.4-6.5) K/uL Lymph # (Auto) 0.07 L (1.2-3.4) K/uL [place] # (Auto) 0.02 L (0.11-0.59) K/uL Neutrophils # (Manual) (1.4-6.5) K/uL Total Absolute Neuts (1.4-6.5) K/uL Lymphocytes # (Manual) (1.2-3.4) K/uL Total Abs Lymphocytes (1.2-3.4) K/uL Sodium (136-145) mmol/L Potassium (3.5-5.1) mmol/L Chloride (98-107) mmol/L Carbon Dioxide (21-32) mmol/L BUN (7-18) mg/dl BUN/Creatinine Ratio (10-20) Glucose (70-99) mg/dl POC Glucose 216 H 225 H (70-99) Phosphorus (2.5-4.9) mg/dl Magnesium (1.8-2.4) mg/dl Total Bilirubin (0.2-1) mg/dl AST (15-37) U/L Total Protein (6.4-8.2) gm/dl Albumin (3.4-5.0) gm/dl Albumin/Globulin Ratio (0.9-2) Prealbumin (20-40) mg/dl Urine Appearance (Clear) Urine Protein (Negative) Urine Glucose (UA) (Negative) Urine Ketones (Negative) U Epithel Cells (Auto) (0-5) /lpf Granular Casts (0) /lpf 02/17/19 02/17/19 02/17/19 Range/Units 08:28 12:04 16:16 WBC (4.8-10.8) K/uL RBC (4.2-5.4) M/uL Hgb (12.0-16.0) g/dL Hct (37-47) % Plt Count (130-400) K/uL Immature Gran # (Auto) (0.00-0.02) K/uL Neut # (Auto) (1.4-6.5) K/uL Lymph # (Auto) (1.2-3.4) K/uL [place] # (Auto) (0.11-0.59) K/uL Neutrophils # (Manual) (1.4-6.5) K/uL Total Absolute Neuts (1.4-6.5) K/uL Lymphocytes # (Manual) (1.2-3.4) K/uL Total Abs Lymphocytes (1.2-3.4) K/uL Sodium (136-145) mmol/L Potassium (3.5-5.1) mmol/L Chloride 110 H (98-107) mmol/L Carbon Dioxide 17 L (21-32) mmol/L BUN 20 H (7-18) mg/dl BUN/Creatinine Ratio 20.5 H (10-20) Glucose 238 H (70-99) mg/dl POC Glucose 227 H 205 H (70-99) Phosphorus 2.1 L (2.5-4.9) mg/dl Magnesium (1.8-2.4) mg/dl Total Bilirubin (0.2-1) mg/dl AST 50 H (15-37) U/L Total Protein 5.0 L (6.4-8.2) gm/dl Albumin 1.9 L (3.4-5.0) gm/dl Albumin/Globulin Ratio (0.9-2) Prealbumin 4.6 L (20-40) mg/dl Urine Appearance (Clear) Urine Protein (Negative) Urine Glucose (UA) (Negative) Urine Ketones (Negative) U Epithel Cells (Auto) (0-5) /lpf Granular Casts (0) /lpf (1) Vomiting Nausea presence: with nausea Vomiting Intractability: non-intractable Vomiting type: unspecified Qualified Code(s): R11.2 - Nausea with vomiting, unspecified
--- NOTE | 2019-02-17 19:30 | Hospitalist Progress Note ---
Date of Service February 17, 2019 Assessment & Plan (1) Chemotherapy induced nausea and vomiting: Continue on IV fluids until PO intake increases. Continue on ondansetron and prochlorperazine IV for nasuea. (2) Diarrhea: c. diff negative. Will start lomotil. Stool culture pending at this time. (3) Hypokalemia: Will continue to monitor daily and replace as necessary (4) Weakness: secondary to chemotherapy (5) Neutropenia: Improving, secondary to chemotherapy (6) Port-A-Cath in place: (7) Vitamin B12 deficiency: Continue O/P supplementation when able (8) Essential hypertension: Continue to hold HCTZ, will restart if PO intake increase or sBP consistently > 160. (9) Glaucoma: Continue O/P medications (10) Dyslipidemia: Continue lovastatin (11) Diabetes mellitus: Holding home dose of glipizide in light of acute illness. Continue insulin sliding scale. Likely will need lantus if PO intake increases. (12) Hypomagnesemia: Repeat level in AM. (13) Hypophosphatemia: 9mmol potassium phos replace today. Repeat in AM. (14) DVT prophylaxis: Lovenox 30mg SQ daily (15) Discharge planning issues: PT/OT evals Subjective Patient still vomiting after small amounts to eat. Possibly feeling slightly improved but still very weak. No fevers or chills. No abdominal pain. Continues to have loose brown diarrhea. No shortness of breath or chest pain. Review of Systems Review of Systems: All systems reviewed & are unremarkable except as noted in HPI & below Physical Exam Constitutional: well developed; no acute distress Eyes: + anicteric sclerae; normal pupil size ENMT: Mouth: + dry oral mucous membranes Neck: trachea midline Respiratory: normal respiratory effort, lungs clear to auscultation Cardiovascular: RRR, no murmur, no edema Gastrointestinal (Abdomen): normal bowel sounds, soft, nontender, no hepatosplenomegaly Musculoskeletal: no cyanosis or clubbing, extremities motor strength 5/5 Skin: no rashes, warm and dry Neurologic: moves all extremities and awake; no focal motor deficits and not confused Psychiatric: A+Ox3, euthymic affect Results & Data Vital Signs (Past 12 Hours) Vital Signs Temp Pulse Resp BP BP Pulse Ox 02/17/19 14:37 99.0 F 95 H 18 105/59 L 98 11/25/19 11:41 99.3 F 96 H 20 111/63 96 PG Care Time/CCT Total # of Minutes Spent Total Time Spent with Patient: Total time spent is greater than 50% in coordination of care (as documented) at patient's floor/unit and/or counseling patient: (1) Diarrhea Diarrhea type: unspecified type Qualified Code(s): R19.7 - Diarrhea, unspecified (2) Neutropenia Neutropenia type: secondary to cancer chemotherapy Qualified Code(s): D70.1 - Agranulocytosis secondary to cancer chemotherapy; T45.1X5A - Adverse effect of antineoplastic and immunosuppressive drugs, initial encounter
[2019-02-17] MEDS: BIMATOPROST 0.01% OP SOLN 2.5 ML BTL OP SCH (19:40)
[2019-02-17] MEDS: DONEPEZIL HCL 5 MG TAB PO SCH (19:40)
[2019-02-17] MEDS: ENOXAPARIN INJ 30 MG/0.3 ML SYR SQ SCH (21:44)
[2019-02-18] MEDS ORDERED: Nursing to Pharmacy Communication ONE (01:48)
[2019-02-18] MEDS: ONDANSETRON INJ 2 MG/ML 2 ML VIAL IV PRN ×2 (02:40→08:10)
[2019-02-18] MEDS: PROCHLORPERAZINE 5 MG in SYRINGE 4 ML IV PRN ×2 (05:04→11:39)
[2019-02-18] MEDS: HEPARIN 100 UNIT/ML 5ML FLUSH IV PRN (08:04)
[2019-02-18 08:42] LABS: Hematocrit (blood only) 27.4 % (37-47); Hemoglobin 9.1 g/dL (12.0-16.0); Mean Corpuscular Hemoglobin 30.7 pg (25-34); Mean Corpuscular Hgb Conc 33.2 g/dL (32-36); Mean Corpuscular Volume 92.6 fL (80-100); Mean Platelet Volume 10.1 fL (7.4-10.4); Platelet Count 138 K/uL (130-400); RDW Coefficient of Variation 13.6 % (11.5-14.5); RDW Standard Deviation 45.8 fL (36.4-46.3); Red Blood Count 2.96 M/uL (4.2-5.4)
[2019-02-18] MEDS: DIPHENOXYLATE/ATROPINE 2.5/0.025MG TAB PO PRN (09:02)
[2019-02-18] MEDS: LOSARTAN POTASSIUM 50 MG TAB PO SCH (09:02)
[2019-02-18] MEDS: HYDROCORTISONE 1% CRM 30 GM TUBE EXT SCH ×2 (09:03→20:54)
[2019-02-18] MEDS: INSULIN ASPART 100 UNITS/ML 3 ML PEN SC SCH ×4 (09:04→20:53)
[2019-02-18 09:07] LABS: Echinocytes 3+; Eosinophils # (auto) 0.01 K/uL (0-0.5); Eosinophils % (auto) 0.5 %; Immature Granulocytes # (auto) 0.02 K/uL (0.00-0.02); Immature Granulocytes % (auto) 1.1 %; Lymphocytes # (auto) 0.11 K/uL (1.2-3.4); Lymphocytes % (auto) 5.8 %; Monocytes # (auto) 0.05 K/uL (0.11-0.59); Monocytes % (auto) 2.6 %; Neutrophils # (auto) 1.71 K/uL (1.4-6.5)
[2019-02-18 09:10] LABS: BUN Creatinine Ratio 22.9 (10-20); Calcium 9.1 mg/dl (8.5-10.1); Creatinine Clr Calc Pharmacy 40.7 ml/min; Est GFR (African American) 62.9; Est GFR (Non-African American) 54.3; Magnesium 1.8 mg/dl (1.8-2.4); Potassium 3.9 mmol/L (3.5-5.1)
[2019-02-18 09:14] LABS: Phosphorus 3.1 mg/dl (2.5-4.9)
[2019-02-18] MEDS: TIMOLOL MALEATE 0.5% OP SOLN 5 ML BTL OP SCH (09:30)
[2019-02-18] MEDS ORDERED: INSULIN GLARGINE SOLOSTAR 100 UNITS/ML 3 ML PEN SC SCH (10:00)
[2019-02-18] MEDS: MEMANTINE HCL 10 MG TAB PO SCH (10:45)
[2019-02-18] MEDS: CYANOCOBALAMIN 500 MCG TABLET (VITAMIN B-12) PO SCH (10:45)
[2019-02-18] MEDS: LOVASTATIN 20 MG TAB PO SCH (10:45)
[2019-02-18] MEDS: CHOLECALCIFEROL 1,000 UNITS TAB PO SCH (10:45)
[2019-02-18] MEDS: MULTIVITAMIN TAB PO SCH (10:45)
[2019-02-18] MEDS: MONTELUKAST SODIUM 10 MG TABLET PO SCH (10:45)
[2019-02-18] MEDS: LACTATED RINGER'S 1,000 ML IV SCH ×2 (10:46→21:44)
[2019-02-18] MEDS ORDERED: PROMETHAZINE HCL 12.5 MG in SODIUM CHLORIDE 0.9% 50 ML IV STA (14:50)
[2019-02-18 15:15] LABS: Base Excess VBG -2.7 mEq/L; HCO3 VBG 21 mmol/L; PCO2 VBG 31 mmHg (38-50); PO2 VBG 24 mmHg; pH VBG 7.45 (7.36-7.41)
[2019-02-18 15:16] LABS: Oxygen Saturation VBG < 60.0 %
--- NOTE | 2019-02-18 17:41 | CT Scan Report ---
CT OF THE ABDOMEN AND PELVIS WITH CONTRAST CLINICAL HISTORY: Ongoing nausea and vomiting. Known pancreatic cancer. COMPARISON STUDY: CT of the abdomen and pelvis January 15, 2019. Abdominal series February 16, 2019. TECHNIQUE: Following IV administration of 90 mL of Optiray-320, axial images of the abdomen and pelvi s were obtained from the lung bases to the proximal femurs. Images were reviewed in the axial, sagitt al, and coronal planes. IV contrast was administered without complication. Automated exposure contro l was utilized for the study. A dose lowering technique was utilized adhering to the principles of A CATALINA. CT DOSE: 491.73 mGy.cm FINDINGS: Lung bases are unremarkable. Mild distal esophageal wall thickening is noted. The stomach i s mildly distended and fluid-filled. A small amount of abdominal and pelvic ascites has increased sin ce CT of January 15, 2019. Numerous peritoneal implants are similar to prior exam. No hepatic lesions are present. There has been interval development of a moderate sized splenic infarct since prior CT. Severe narrowing versus occlusion of the splenic vein is noted due to the known pancreatic mass at t he junction of the body and tail. This measures approximately 2.4 cm in size. No biliary ductal dilat ation is present status post cholecystectomy. No pneumatosis, free air or portal venous gas is presen t. There is no hydronephrosis. Water attenuation bilateral renal lesions reflect cysts. 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 A 2 cm lesion within the midpole the right kidney measures above water attenuation but was shown to likely reflect a cyst on ultrasound of October 03 3. Major vasculature is patent. There are no suspicious osseous lesions. There is colonic diverticulo sis without evidence for acute diverticulitis. IMPRESSION: 1. Interval development of a moderate sized splenic infarct since CT of January 15, 2019. 2. Redemonstration of a mass at the junction of the pancreas body and tail which is slightly less def ined than on prior exam. No significant change in numerous peritoneal implants. Interval increase in a small amount of abdominal and pelvic ascites. Occlusion versus severe stenosis of the splenic vein. Associated collaterals. 3. Mildly distended fluid-filled stomach. Mild distal esophageal wall thickening. 4. No bowel obstruction. No hydronephrosis. Electronically signed by: Giorgi Williamson M.D. 02/18/2019 5:40 PM
[2019-02-18] MEDS ORDERED: INSULIN PROTOCOL GOAL RANGE ONE (18:34)
[2019-02-18] MEDS ORDERED: MODERATE STRESS LEVEL ONE (18:34)
[2019-02-18] MEDS ORDERED: FAMOTIDINE 20 MG in SYRINGE 3 ML IV ONE (19:00)
[2019-02-18] MEDS ORDERED: INSULIN REGULAR 250 UNITS in SODIUM CHLORIDE 0.9% 247.5 ML IV SCH (19:15)
[2019-02-18] MEDS ORDERED: INSULIN HUMAN REGULAR IV BOLUS 1.5 UNITS in SYRINGE 0 ML IV ONE (19:15)
[2019-02-18] MEDS ORDERED: PHARMACY GLYCEMIC MGMT CONSULT STA (20:16)
--- NOTE | 2019-02-18 20:29 | Hospitalist Progress Note ---
Date of Service February 18, 2019 Assessment & Plan (1) Chemotherapy induced nausea and vomiting: Switch Compazine IV to Phenergan as the former has not been given any relief. CT abdomen pelvis ordered to rule out obstructive cause. No bowel obstruction noted. No other findings to indicate reason for ongoing nausea and vomiting. Hold donepezil, lovastatin, memantine and montelukast to rule out these as a cause. Concerning her labs are improving however her appetite and nausea is not, suggestive of underlying metastatic disease causing her symptoms. If no significant improvement tomorrow, will get CT head to rule out metastatic intracranial disease (no focal neurology to suspect this on exam), add dexamethasone and consider palliative care referral to assist in symptom management. (2) Diarrhea: c. diff negative. Stool culture negative to date. Continue Lomotil. (3) Hypokalemia: Will continue to monitor daily and replace as necessary (4) Weakness: secondary to chemotherapy versus underlying metastatic cancer (5) Neutropenia: Improving, secondary to chemotherapy (6) Port-A-Cath in place: (7) Vitamin B12 deficiency: Continue O/P supplementation when able (8) Essential hypertension: Continue to hold HCTZ, will restart if PO intake increase or sBP consistently > 160. Continue losartan. (9) Glaucoma: Continue O/P medications (10) Dyslipidemia: Hold lovastatin given noncritical acute medication in setting of nausea and vomiting. (11) Diabetes mellitus: Holding home dose of glipizide in light of acute illness. Continues to have glucose levels in high 200s despite Lantus given in a.m. Elevated beta hydroxybutyric acid in setting of starvation rather than insulin deficiency. No acidosis on venous and arterial blood gas. In order to control her glucose levels better overnight we will place her on an insulin drip. Likely can come be discontinued in a.m, but should give us a b chago idea on her overall insulin requirement. (12) Hypomagnesemia: Magnesium 1.8. Continue to monitor daily. (13) Hypophosphatemia: Phosphorus 3.1, after IV supplementation yesterday. Continue to monitor daily. (14) Severe protein-calorie malnutrition: Nutrition review noted. Will consider palliative review if unable to get nausea under control. Discussed potential option for NG tube feeding if no longer vomiting. (15) DVT prophylaxis: Lovenox 30mg SQ daily (16) Discharge planning issues: PT/OT evals Subjective No real improvement with symptoms from yesterday. Continue nausea, vomiting (minimal white) with minimal oral intake. Continues to have mucous bowel movements. No abdominal pain Discussed with her daughter at bedside who reports the patient has not really been eating for approximately a month. Patient describes just reduced appetite during this time. She denies dysphagia, odynophagia, early satiety, heartburn. Review of Systems Review of Systems: All systems reviewed & are unremarkable except as noted in HPI & below Physical Exam Constitutional: well developed, + cachectic, + lethargic and + malnourished; no acute distress Eyes: + anicteric sclerae; normal pupil size ENMT: Mouth: + dry oral mucous membranes Neck: trachea midline Respiratory: normal respiratory effort, lungs clear to auscultation Cardiovascular: RRR, no murmur, no edema Gastrointestinal (Abdomen): Inspection/Auscultation: abdomen normal to inspection and normal bowel sounds; abdomen not distended Percussion/Palpation: abdomen soft; abdomen nontender, no guarding and abdomen not rigid Musculoskeletal: no cyanosis or clubbing, extremities motor strength 5/5 Skin: no rashes, warm and dry Neurologic: moves all extremities and awake; no focal motor deficits and not confused Psychiatric: A+Ox3, euthymic affect Results & Data Vital Signs (Past 12 Hours) Vital Signs Temp Pulse Resp BP Pulse Ox 02/18/19 19:59 98.2 F 92 H 18 145/71 H 02/18/19 15:43 98.4 F 93 H 18 127/74 98 02/18/19 11:08 98.2 F 69 18 126/76 94 PG Care Time/CCT Total # of Minutes Spent Total Time Spent with Patient: Total time spent is greater than 50% in coordination of care (as documented) at patient's floor/unit and/or counseling patient: (1) Diarrhea Diarrhea type: unspecified type Qualified Code(s): R19.7 - Diarrhea, unspecified (2) Neutropenia Neutropenia type: secondary to cancer chemotherapy Qualified Code(s): D70.1 - Agranulocytosis secondary to cancer chemotherapy; T45.1X5A - Adverse effect of antineoplastic and immunosuppressive drugs, initial encounter (3) Diabetes mellitus Diabetes mellitus type: type 2 Diabetes mellitus fci insulin use: without fci use Diabetes mellitus complication status: with hyperglycemia Qualified Code(s): E11.65 - Type 2 diabetes mellitus with hyperglycemia
[2019-02-18] MEDS: INSULIN GLARGINE SOLOSTAR 100 UNITS/ML 3 ML PEN SC SCH ×2 (20:51→21:01)
[2019-02-18] MEDS: BIMATOPROST 0.01% OP SOLN 2.5 ML BTL OP SCH (20:54)
[2019-02-18] MEDS ORDERED: INSULIN ASPART 100 UNITS/ML 3 ML PEN SC SCH (21:00)
[2019-02-18] MEDS: ENOXAPARIN INJ 30 MG/0.3 ML SYR SQ SCH (21:44)
[2019-02-19] MEDS: INSULIN ASPART 100 UNITS/ML 3 ML PEN SC SCH ×5 (02:25→23:53)
[2019-02-19] MEDS: DIPHENOXYLATE/ATROPINE 2.5/0.025MG TAB PO PRN (05:59)
[2019-02-19 08:07] LABS: Hematocrit (blood only) 24.2 % (37-47); Hemoglobin 8.4 g/dL (12.0-16.0); Mean Corpuscular Hemoglobin 30.8 pg (25-34); Mean Corpuscular Hgb Conc 34.7 g/dL (32-36); Mean Corpuscular Volume 88.6 fL (80-100); RDW Coefficient of Variation 13.6 % (11.5-14.5); Red Blood Count 2.73 M/uL (4.2-5.4); White Blood Count 2.51 K/uL (4.8-10.8)
[2019-02-19] MEDS: LACTATED RINGER'S 1,000 ML IV SCH ×2 (08:16→19:18)
[2019-02-19] MEDS: CHOLECALCIFEROL 1,000 UNITS TAB PO SCH (08:17)
[2019-02-19] MEDS: MULTIVITAMIN TAB PO SCH (08:18)
[2019-02-19] MEDS: LOSARTAN POTASSIUM 50 MG TAB PO SCH (08:18)
[2019-02-19] MEDS: CYANOCOBALAMIN 500 MCG TABLET (VITAMIN B-12) PO SCH (08:18)
[2019-02-19] MEDS: TIMOLOL MALEATE 0.5% OP SOLN 5 ML BTL OP SCH (08:19)
[2019-02-19] MEDS: HYDROCORTISONE 1% CRM 30 GM TUBE EXT SCH ×2 (08:19→20:36)
[2019-02-19] MEDS: INSULIN GLARGINE SOLOSTAR 100 UNITS/ML 3 ML PEN SC SCH (08:20)
[2019-02-19 08:37] LABS: BUN Creatinine Ratio 21.7 (10-20); Calcium 8.4 mg/dl (8.5-10.1); Creatinine Clr Calc Pharmacy 45.2 ml/min; Est GFR (African American) 71.5; Est GFR (Non-African American) 61.7; Magnesium 1.4 mg/dl (1.8-2.4); Phosphorus 1.7 mg/dl (2.5-4.9); Potassium 3.3 mmol/L (3.5-5.1)
[2019-02-19 08:46] LABS: Mean Platelet Volume 9.7 fL (7.4-10.4); Platelet Count 86 K/uL (130-400)
[2019-02-19] MEDS ORDERED: POTASSIUM PHOS 3 MMOL/1 ML INFUSION IV STA (08:46)
[2019-02-19 08:50] LABS: Dohle Bodies 2+; Echinocytes 2+; Eosinophils # (auto) 0.01 K/uL (0-0.5); Eosinophils % (auto) 0.4 %; Immature Granulocytes # (auto) 0.02 K/uL (0.00-0.02); Immature Granulocytes % (auto) 0.8 %; Lymphocytes # (auto) 0.21 K/uL (1.2-3.4); Lymphocytes % (auto) 8.4 %; Monocytes # (auto) 0.16 K/uL (0.11-0.59); Monocytes % (auto) 6.4 %; Neutrophils # (auto) 2.11 K/uL (1.4-6.5); Platelet Estimate Decreased (Normal); Toxic Granulation 3+
[2019-02-19] MEDS ORDERED: POTASSIUM PHOSPHATE 21 MMOL in SODIUM CHLORIDE 0.9% 500 ML IV ONE (09:15)
[2019-02-19] MEDS: ONDANSETRON HCL 8 MG in DEXTROSE 5% 50 ML IV SCH ×3 (09:27→21:01)
[2019-02-19] MEDS: MAGNESIUM SULFATE / D5W 1 GM/100 ML BAG IV SCH ×2 (09:48→10:50)
[2019-02-19] MEDS ORDERED: dexAMETHasone 8 MG in SYRINGE 0 ML IV ONE (11:09)
[2019-02-19] MEDS ORDERED: PHARMACY GLYCEMIC MGMT CONSULT PRN (11:32)
--- NOTE | 2019-02-19 11:41 | Palliative Care Consultation ---
Date of Consultation February 19, 2019 Assessment & Plan (1) Palliative care encounter: This is a 78 year old female who has a PMH that includes pancreatic cancer with peritoneal mets, HTN, Alzheimer's Dementia, DM2, HTN. Presented to the [facility] after her second chemotherapy (Gemcitabine and Abraxane) treatment last which caused her to have weakness and have N/V/D. She has multiple electrolyte disturbances as well. Oncology has seen this patient and once she is stabilized, the plan is to restart chemotherapy at a lower dose. The patient has had worsening appetite and nausea despite treatment. A head CT was obtained today to rule out brain mets. The patient's nausea has been most recently managed with multiple agents including Zofran, Compazine and Phenergan. She is currently on Zofran 8 mg IV TID. Palliative Care was consulted for symptom management. -I met with the patient in room 276. The patient had just returned from getting a CT of her head. Her , sister, brother in law, and niece (who is a nurse at the [employer] in the [facility]) were all at her bedside. -The patient was AAO x3, but did have forgetfulness and confusion intermittently throughout the visit. She referenced that she "could just go upstairs and get her ice cream out of the freezer because she just bought some", but then would ask what the results of her test was. -the patient states that her nausea seems 'ok' today. She is currently receiving Zofran 8mg IV TID. -Should her nausea worsen or if she has emesis, I would suggest the following: Decadron 2 mg po TID and if no improvement after 24 hours, increase to 4mg po BID -Main concern with Decadron is agitation, patient has not been on it before and family denies any behavioral disturbances pre admission. -Decadron can be good for appetite stimulation, nausea and mood. -If Decadron does not work, would suggest the following next: Haldol 1mg po BID and if no improvement over 24 hours, increase to 2 mg po BID. -Main concern with Haldol is prolonged QTc. Would discuss risk vs benefit to patient. Would keep on tele if starting for 24-48 hours. -I would avoid Phenergan from a fall risk and increased agitation. advanced age standpoint. -Moving forward, for another palliative discussion, I think it would be appropriate to discuss code status, but did not feel it was appropriate to discuss this today. Pt remains a Full Code. -Patient and her state they are willing to to continue chemotherapy and readdress each scenario as it comes. -Patient could be a good medical marijuana candidate in the future. Would need to sign up through [email or web address] to obtain medical marijuana card and then set up an appointment. Did not discuss during this encounter. -Unable to determine the extent of her AD at this time, as her confusion could be multifactorial. Her said she was independent with her ADL's prior to hospitalization. -Palliative Care will follow. (2) Pancreatic adenocarcinoma: (3) Weakness: (4) Severe protein-calorie malnutrition: (5) Nausea & vomiting: (6) Memory loss: History of Present Illness Reason for Consultation: Dr. Mata Requesting Physician: Symptom management Attending Physician: Davis Mata MD History of Present Illness This is a 78 year old female who has a PMH that includes pancreatic cancer with peritoneal mets, HTN, Alzheimer's Dementia, DM2, HTN. Presented to the [facility] after her second chemotherapy (Gemcitabine and Abraxane) treatment last which caused her to have weakness and have N/V/D. She has multiple electrolyte disturbances as well. Oncology has seen this patient and once she is stabilized, the plan is to restart chemotherapy at a lower dose. The patient has had worsening appetite and nausea despite treatment. A head CT was obtained today to rule out brain mets. The patient's nausea has been most recently managed with multiple agents including Zofran, Compazine and Phenergan. She is currently on Zofran 8 mg IV TID. Palliative Care was consulted for symptom management. Please see A/P for further details. Thank you kindly for involving the palliative care team with this patient. Allergies Allergy/AdvReac Type Severity Reaction Status Date / Time azithromycin AdvReac Mild NAUSEA/VOMI Verified 02/05/19 07:04 TTING Sulfa (Sulfonamide AdvReac Mild Nausea/Vomi Verified 02/05/19 07:04 Antibiotics) tting Home Medications Home Medications Medication Instructions Recorded Confirmed Type bimatoprost 0.03 % eye drops 1 % OP DAILY ml 11/04/18 02/16/19 History multivitamin 1 tab PO QAM 11/04/18 02/16/19 History cholecalciferol (vitamin D3) 5,000 5,000 units PO QAM cap 12/27/18 02/16/19 History unit capsule cyanocobalamin (vitamin B-12) 1,000 mcg PO QAM tab 12/27/18 02/16/19 History 1,000 mcg tablet glipizide 10 mg tablet, extended 10 mg PO QAM #90 tab 12/27/18 02/16/19 History release 24 hr lovastatin 10 mg tablet 10 mg PO QAM #90 tab 12/27/18 02/16/19 History metformin 500 mg tablet 500 mg PO BID #360 tab 12/27/18 02/16/19 History montelukast 10 mg tablet 10 mg PO QAM #1 tab 12/27/18 02/16/19 History timolol maleate 0.5 % once daily 1 drops OPHTHALMIC (EYE) UD ml 12/27/18 02/16/19 History eye drops donepezil 5 mg tablet 5 mg PO HS 90 Days #90 tab 01/08/19 02/16/19 Rx memantine 10 mg tablet 10 mg PO BID #180 tab 01/08/19 02/16/19 Rx losartan-hydrochlorothiazide 1 tab PO QAM 02/03/19 02/16/19 History ondansetron HCl 8 mg PO Q8H 02/16/19 02/16/19 History potassium chloride 20 meq PO DAILY 02/16/19 02/16/19 History prochlorperazine maleate 10 mg PO QID 02/16/19 02/16/19 History Patient History Medical History (Updated 02/19/19 @ 11:39 by NATHANIEL Funes) Alzheimer disease "BEGINING STAGES" Diabetes mellitus, type 2 Glaucoma Hyperlipidemia Hypertension Nausea & vomiting Osteoarthritis Palliative care encounter Pancreatic adenocarcinoma NO SURGERY Poor historian Spinal stenosis Surgical History H/O hysterectomy with unilateral oophorectomy History of cholecystectomy History of colonoscopy History of dental surgery History of tonsillectomy History of tonsillectomy and adenoidectomy History of varicose vein ligation Family History Father Family history of diabetes mellitus Other Coronary arteriosclerosis Social History Preferred Language: Frisian Communication Ability: Effective Experimental Plastics Fabricator Required: No Beliefs That Will Affect Care: None marital status: Current Living Situation: Spouse current occupational status: retired Feels Safe at Home: Yes Smoking Status: Never smoker Second Hand Exposure: No ; Hx Alcohol Use: No Hx Substance Use: No Review of Systems Review of Systems: General: Pt denies overall pain HEENT: + nausea, + visual changes CV: (-) no chest pain, palpitations Resp: (-) SOB GI: (+) Physical Exam Constitutional: + ill appearing, + frail appearing and cooperative Eyes: PERRL, conjunctivae normal, anicteric sclerae ENMT: external ear and nose normal, oropharynx normal Cardiovascular: RRR, no murmur, no edema Gastrointestinal (Abdomen): normal bowel sounds, soft, nontender, no hepatosplenomegaly Skin: no rashes, warm and dry Psychiatric: Orientation: alert and oriented x 3 Insight: + limited insight Judgement: + limited judgement Results & Data Vital Signs (Past 12 Hours) Vital Signs Temp Pulse Pulse Resp BP Pulse Ox 02/19/19 07:50 86 02/19/19 07:34 36.8 C 87 16 109/58 L 97 02/19/19 03:31 36.6 C 104 H 20 137/68 100 02/19/19 01:46 111 H PG Care Time/CCT Total # of Minutes Spent Total Time Spent with Patient: Total time spent is greater than 50% in coordination of care (as documented) at patient's floor/unit and/or counseling patient: 70 Time Spent Midlevel time spent 70 minutes with > 50% of that time spent assessing the patient and discussing symptom management with patient and family at the bedside.
[2019-02-19] MEDS ORDERED: INSULIN GLARGINE SOLOSTAR 100 UNITS/ML 3 ML PEN SC ONE (12:00)
[2019-02-19] MEDS ORDERED: IOVERSOL 100ml IV PRN (12:01)
--- NOTE | 2019-02-19 12:07 | CT Scan Report ---
CT head/brain wo/w con CLINICAL HISTORY: 78 years-old Female presenting with nausea/vomiting, known pancreatic ca. ?mets. TECHNIQUE: Multidetector CT imaging of the head was performed before and after the administration of intravenous contrast. IV contrast: 93 mL of Optiray 320. One or more dose lowering techniques were us ed consistent with the principles of ALARA (as low as reasonably achievable), including automatic exp osure control, mA or kV adjustment to individual patient size, and/or use of iterative reconstruction . COMPARISON: Brain MR from 2017. CT DOSE (mGy.cm): The estimated cumulative dose is 1277.12 mGycm. FINDINGS: Club Waiter/Waitress topogram: Unremarkable. Proportional ventricular and sulcal prominence, likely age-related parenchymal volume loss. No hemorr kirsten. Brain parenchyma normal in appearance with preserved wynne-white differentiation. No acute gary torial infarct. No mass effect or midline shift. No extra-axial fluid collection. Paranasal sinuses a nd mastoid air cells clear. Calvarium intact. No abnormal parenchymal enhancement. Intracranial vascu lature grossly patent. IMPRESSION: 1. No CT evidence of intracranial metastatic disease. No acute intracranial abnormality. Electronically signed by: Alessandro Cedeno M.D. 02/19/2019 12:05 PM
[2019-02-19] MEDS: POTASSIUM CHLORIDE / WTR 10 MEQ/100 ML PLCT IV SCH ×2 (12:46→13:47)
--- NOTE | 2019-02-19 15:28 | Pharmacy Report ---
Pharmacy Glycemic Short Note 2 - Date of Service February 19, 2019 - Glycemic Short BSG Results (Last 24 hours): 02/18/19 02/18/19 02/18/19 16:48 19:54 20:38 Glucose POC Glucose 271 H 179 H 184 H 02/19/19 02/19/19 02/19/19 01:55 05:59 07:43 Glucose POC Glucose 131 H 118 H 122 H 02/19/19 02/19/19 07:53 11:29 Glucose 115 H POC Glucose 157 H OUTPATIENT ANTIDIABETIC REGIMEN: * metformin 500 mg BID, glipizide 10 mg qAM * A1c = 8.8% ASSESSMENT: * Rosalba is a 78 year old female T2DM * H/o metastatic pancreatic adenocarcinoma stage IV, hypertension, hyperlipidemia, DM 2, Marlborough's disease presents with nausea/vomiting, diarrhea and weakness status post second round of chemo 4 days ago. * Pharmacy was consulted today due to anticipation of steroid induced hyperglycemia. Pt was given a one time dose of dexamethasone 8 mg IV @1100. * Pt was given an extra 10 units of Lantus with lunch. * Overnight checks have been added. * I will not change Novolog order per current parameters are already aggressive PLAN FOR INPATIENT GLYCEMIC CONTROL: * Hold outpatient oral diabetes medications * Basal insulin - increase * Lantus 12 units SQ this morning * Extra 10 units of Lantus ordered with lunch * Lantus scale for HS; 5 units for BSG < 200, 8 units for BSG 200 or more * Bolus insulin * NovoLog per scale ACHS or Q6hrs while NPO * Goal Range: Low 110 mg/dL - High 140 mg/dL * Correction Factor: 20 mg/dL/unit * Nutritional / Prandial insulin per carb ratio of 1 unit per 7 grams CHO consumed Overnight checks @ 00 and 04: CF 25, CR 9
[2019-02-19] MEDS: BIMATOPROST 0.01% OP SOLN 2.5 ML BTL OP SCH (20:36)
[2019-02-19] MEDS: ENOXAPARIN INJ 30 MG/0.3 ML SYR SQ SCH (20:37)
[2019-02-19] MEDS ORDERED: INSULIN GLARGINE SOLOSTAR 100 UNITS/ML 3 ML PEN SC SCH (21:00)
[2019-02-20] MEDS: INSULIN ASPART 100 UNITS/ML 3 ML PEN SC SCH ×5 (04:37→21:40)
[2019-02-20] MEDS: LACTATED RINGER'S 1,000 ML IV SCH ×2 (05:33→16:44)
[2019-02-20 07:05] LABS: Hematocrit (blood only) 25.9 % (37-47); Hemoglobin 8.9 g/dL (12.0-16.0); Mean Corpuscular Hgb Conc 34.4 g/dL (32-36); Mean Corpuscular Volume 90.2 fL (80-100); RDW Coefficient of Variation 13.5 % (11.5-14.5); Red Blood Count 2.87 M/uL (4.2-5.4); White Blood Count 5.34 K/uL (4.8-10.8)
[2019-02-20 07:26] LABS: Mean Platelet Volume 9.7 fL (7.4-10.4); Platelet Count 83 K/uL (130-400)
[2019-02-20 07:28] LABS: BUN Creatinine Ratio 18.3 (10-20); Calcium 8.2 mg/dl (8.5-10.1); Creatinine Clr Calc Pharmacy 43.7 ml/min; Est GFR (African American) 68.7; Est GFR (Non-African American) 59.3; Magnesium 1.7 mg/dl (1.8-2.4); Potassium 3.3 mmol/L (3.5-5.1)
[2019-02-20 07:30] LABS: Basophils # (auto) 0.01 K/uL (0-0.2); Basophils % (auto) 0.2 %; Dohle Bodies 1+; Echinocytes 2+; Immature Granulocytes # (auto) 0.08 K/uL (0.00-0.02); Immature Granulocytes % (auto) 1.5 %; Lymphocytes % (auto) 9.4 %; Monocytes # (auto) 0.49 K/uL (0.11-0.59); Monocytes % (auto) 9.2 %; Neutrophils # (auto) 4.26 K/uL (1.4-6.5); Neutrophils % (auto) 79.7 %; Platelet Estimate Decreased (Normal); Schistocytes Occasional; Toxic Granulation 3+
[2019-02-20 07:46] LABS: Phosphorus 3.4 mg/dl (2.5-4.9)
--- NOTE | 2019-02-20 07:53 | Hospitalist Progress Note ---
Date of Service February 19, 2019 Assessment & Plan (1) Chemotherapy induced nausea and vomiting: Possible improvement with Phenergran but only given one dose. Continue to hold donepezil, lovastatin, memantine and montelukast to rule out these as a cause. CT head to r/o metastatic disease negative. Will add dexamethasone and consult palliative care for ongoing management as her pancytopenia has improved but she remains with some nausea and no appetite. (2) Diarrhea: c. diff negative. Stool culture negative to date. Continue Lomotil. (3) Hypokalemia: Will continue to monitor daily and replace as necessary (4) Weakness: secondary to porr nutritional intake, chemotherapy and underlying metastatic cancer (5) Port-A-Cath in place: (6) Vitamin B12 deficiency: Continue O/P supplementation when able (7) Essential hypertension: Continue to hold HCTZ, will restart if PO intake increase or sBP consistently > 160. Continue losartan. (8) Glaucoma: Continue O/P medications (9) Dyslipidemia: Hold lovastatin given noncritical acute medication in setting of nausea and vomiting. (10) Diabetes mellitus: Holding home dose of glipizide in light of acute illness. Glycemic control placed. Appears improved, insulin drip never started as BSG improved prior to starting. (11) Hypomagnesemia: Continue to monitor daily and replace as necessary. (12) Hypophosphatemia: Phosphorus low again today. 21 mmol IV K phos. Continue to monitor daily. (13) Antineoplastic chemotherapy induced pancytopenia: Improving. (14) Severe protein-calorie malnutrition: Nutrition review noted. Will order boost drinks now feeling less nauseous. (15) DVT prophylaxis: Lovenox 30mg SQ daily (16) Discharge planning issues: PT, OT. Subjective Feeling very fatigued. Mild improvement in nausea, no abdominal pain, ongoing diarrhea unchanged. No vomiting. No improvement in appetite. Review of Systems Review of Systems: All systems reviewed & are unremarkable except as noted in HPI & below Physical Exam Constitutional: well developed, + cachectic, + lethargic and + malnourished; no acute distress Eyes: + anicteric sclerae; normal pupil size ENMT: Mouth: + dry oral mucous membranes Neck: trachea midline Respiratory: normal respiratory effort, lungs clear to auscultation Cardiovascular: RRR, no murmur, no edema Gastrointestinal (Abdomen): Inspection/Auscultation: abdomen normal to inspection and normal bowel sounds; abdomen not distended Percussion/Palpation: abdomen soft; abdomen nontender, no guarding and abdomen not rigid Musculoskeletal: no cyanosis or clubbing, extremities motor strength 5/5 Skin: no rashes, warm and dry Neurologic: moves all extremities and awake; no focal motor deficits and not confused Psychiatric: A+Ox3, euthymic affect Results & Data Vital Signs (Past 12 Hours) Vital Signs Temp Pulse Resp BP BP Pulse Ox 02/20/19 04:20 97.5 F L 78 18 119/71 97 02/19/19 23:38 97.9 F 70 18 101/61 96 02/19/19 20:15 98.6 F 80 20 117/70 98 PG Care Time/CCT Total # of Minutes Spent Total Time Spent with Patient: Total time spent is greater than 50% in development coordinator rdination of care (as documented) at patient's floor/unit and/or counseling patient: (1) Diarrhea Diarrhea type: unspecified type Qualified Code(s): R19.7 - Diarrhea, unspecified (2) Diabetes mellitus Diabetes mellitus type: type 2 Diabetes mellitus parts counterman insulin use: without parts counterman use Diabetes mellitus complication status: with hyperglycemia Qualified Code(s): E11.65 - Type 2 diabetes mellitus with hyperglycemia
[2019-02-20] MEDS ORDERED: INSULIN GLARGINE SOLOSTAR 100 UNITS/ML 3 ML PEN SC ONE (08:15)
[2019-02-20] MEDS: TIMOLOL MALEATE 0.5% OP SOLN 5 ML BTL OP SCH (08:30)
[2019-02-20] MEDS: HYDROCORTISONE 1% CRM 30 GM TUBE EXT SCH ×2 (08:30→21:15)
[2019-02-20] MEDS: CYANOCOBALAMIN 500 MCG TABLET (VITAMIN B-12) PO SCH (08:32)
[2019-02-20] MEDS: CHOLECALCIFEROL 1,000 UNITS TAB PO SCH (08:33)
[2019-02-20] MEDS: MULTIVITAMIN TAB PO SCH (08:33)
[2019-02-20] MEDS: ONDANSETRON HCL 8 MG in DEXTROSE 5% 50 ML IV SCH ×3 (08:41→21:10)
[2019-02-20] MEDS ORDERED: dexAMETHasone 1 MG TAB PO SCH (09:00)
[2019-02-20] MEDS: MAGNESIUM SULFATE / D5W 1 GM/100 ML BAG IV SCH ×2 (09:21→10:29)
[2019-02-20] MEDS: POTASSIUM CHLORIDE / WTR 10 MEQ/100 ML PLCT IV SCH ×2 (09:27→10:29)
--- NOTE | 2019-02-20 11:32 | Hospitalist Progress Note ---
Date of Service February 20, 2019 Assessment & Plan (1) Chemotherapy induced nausea and vomiting: Has had improvement in her nausea with Phenergran and 1 dose of dexamethasone-continue -Still pretty much no p.o. intake-has aversion to food at this time Continue to hold donepezil, lovastatin, memantine and montelukast at this time CT head to r/o metastatic disease negative. -Continue dexamethasone 8 mg IV x1 now -Appreciate consult palliative care for ongoing management-dexamethasone versus Haldol if no improvement with Decadron -Advance diet as tolerated -Continue maintenance IV fluids (2) Diarrhea: Improved, secondary to chemotherapy C. diff negative. Stool culture negative to date. -Continue Lomotil as needed for diarrhea (3) Hypokalemia: Remains low again today -Replace with IV potassium chloride -Follow BMP in the morning (4) Weakness: secondary to porr nutritional intake, chemotherapy and underlying metastatic cancer PT/OT evaluations were performed-OT recommends home with home health or family, PT has not been able to complete an evaluation due to patient declining to participate each day so far (5) Port-A-Cath in place: Noted (6) Vitamin B12 deficiency: -Hold home B12 while having minimal p.o. intake (7) Essential hypertension: Blood pressures on the lower side today, have been holding HCTZ -We will now hold losartan -Follow blood pressures (8) Glaucoma: Continue outpatient timolol and bimatoprost drops (9) Dyslipidemia: Hold lovastatin given noncritical acute medication in setting of nausea and vomiting. (10) Diabetes mellitus: Blood pressure is now normal to the mildly increased -Continue holding home dose of glipizide in light of acute illness. Glycemic control placed -Follow blood glucose closely in the setting of IV dexamethasone use -Sliding scale insulin is ordered as well as Lantus dosing as per pharmacy (11) Hypomagnesemia: Magnesium mildly low today at 1.7 -Replace with IV magnesium -Follow magnesium level in the morning (12) Hypophosphatemia: Now normalized after replacement -Follow phosphorus level in the morning (13) Antineoplastic chemotherapy induced pancytopenia: Pancytopenia now stable to improved, no transfusions necessary Platelets remain low but stable at 83, hemoglobin mildly improved 8.9, and WBC count up to 5 with absolute neutrophil count 4260-no further neutropenic precautions needed -Follow CBC in the morning (14) Severe protein-calorie malnutrition: Nutrition review noted. Recommended boost-patient taking in minimal p.o. (15) Oral candidiasis: Thick exudate on tongue -Start clotrimazole trouches (16) DVT prophylaxis: Lovenox 30mg SQ daily (17) Memory loss: Holding home donepezil and memantine (18) Splenic infarct: Noted on CT scan here, secondary to pancreatic cancer -Not causing pain or symptoms (19) Discharge planning issues: PT, OT evaluations ordered as above but PT not completed yet due to patient not feeling able to participate in evaluation Disposition-remain hospitalized until able to take p.o. Subjective Patient reports she still feels poorly, however her nausea is slightly improved. She is still having an aversion for food and does not want to try even any liquids. Still having mucousy small amounts of diarrhea, occasional abdominal pain. No blood in her stool. No vomiting. Denies chest pain, but does occasionally feel short of breath. Afebrile. Blood pressures were on the lower side this morning. Review of Systems Review of Systems: All systems reviewed & are unremarkable except as noted in HPI & below Physical Exam Constitutional: WD/WN, vitals as above Eyes: + anicteric sclerae ENMT: Ears: no hearing impairment and no external ear abnormality Mouth: + oral mucosal abnormality (Thick white exudate on tongue and buccal mucosa) Neck: trachea midline, no thyromegaly Respiratory: normal respiratory effort, lungs clear to auscultation Cardiovascular: RRR, no murmur, no edema Chest (Breasts): Chest: normal inspection of chest Gastrointestinal (Abdomen): normal bowel sounds, soft, nontender, no hepatosplenomegaly Musculoskeletal: Extremities: extremities normal to inspection; no cyanosis and no clubbing Skin: no rashes, warm and dry Neurologic: moves all extremities and awake; no focal motor deficits Psychiatric: Orientation: alert, oriented to person and cooperative Lymphatic: no lymphedema Results & Data Vital Signs (Past 12 Hours) Vital Signs Temp Pulse Resp BP Pulse Ox 02/20/19 07:59 36.6 C 71 16 93/63 L 98 02/20/19 04:20 36.4 C L 78 18 119/71 97 02/19/19 23:38 36.6 C 70 18 101/61 96 Laboratory Results 02/20/19 02/20/19 02/20/19 Range/Units 11:41 07:44 06:50 WBC (4.8-10.8) K/uL RBC (4.2-5.4) M/uL Hgb (12.0-16.0) g/dL Hct (37-47) % MCV (80-100) fL MCH (25-34) pg MCHC (32-36) g/dL RDW Std Deviation (36.4-46.3) fL RDW Coeff of Valdo (11.5-14.5) % Plt Count (130-400) K/uL MPV (7.4-10.4) fL Immature Gran % (Auto) % Neut % (Auto) % Lymph % (Auto) % [place] % (Auto) % Eos % (Auto) % Baso % (Auto) % Immature Gran # (Auto) (0.00-0.02) K/uL Neut # (Auto) (1.4-6.5) K/uL Lymph # (Auto) (1.2-3.4) K/uL [place] # (Auto) (0.11-0.59) K/uL Eos # (Auto) (0-0.5) K/uL Baso # (Auto) (0-0.2) K/uL Toxic Granulation Dohle Bodies Platelet Estimate (Normal) Echinocytes Schistocytes Sodium 142 (136-145) mmol/L Potassium 3.3 L (3.5-5.1) mmol/L Chloride 112 H (98-107) mmol/L Carbon Dioxide 21 (21-32) mmol/L Anion Gap 9.0 (3-11) BUN 17 (7-18) mg/dl Creatinine 0.93 (0.6-1.2) mg/dl Est Cr Clr Drug Dosing 43.7 ml/min Est GFR ( Amer) 68.7 Est GFR (Non-Af Amer) 59.3 BUN/Creatinine Ratio 18.3 (10-20) Glucose 81 (70-99) mg/dl POC Glucose 106 H 94 (70-99) Calcium 8.2 L (8.5-10.1) mg/dl Phosphorus 3.4 D (2.5-4.9) mg/dl Magnesium 1.7 L (1.8-2.4) mg/dl 02/20/19 02/20/19 02/19/19 Range/Units 06:50 04:17 23:41 WBC 5.34 (4.8-10.8) K/uL RBC 2.87 L (4.2-5.4) M/uL Hgb 8.9 L (12.0-16.0) g/dL Hct 25.9 L (37-47) % MCV 90.2 (80-100) fL MCH 31.0 (25-34) pg MCHC 34.4 (32-36) g/dL RDW Std Deviation 45.0 (36.4-46.3) fL RDW Coeff of Valdo 13.5 (11.5-14.5) % Plt Count 83 L (130-400) K/uL MPV 9.7 (7.4-10.4) fL Immature Gran % (Auto) 1.5 % Neut % (Auto) 79.7 % Lymph % (Auto) 9.4 % [place] % (Auto) 9.2 % Eos % (Auto) 0.0 % Baso % (Auto) 0.2 % Immature Gran # (Auto) 0.08 H (0.00-0.02) K/uL Neut # (Auto) 4.26 (1.4-6.5) K/uL Lymph # (Auto) 0.50 L (1.2-3.4) K/uL [place] # (Auto) 0.49 (0.11-0.59) K/uL Eos # (Auto) 0.00 (0-0.5) K/uL Baso # (Auto) 0.01 (0-0.2) K/uL Toxic Granulation 3+ Dohle Bodies 1+ Platelet Estimate Decreased L (Normal) Echinocytes 2+ Schistocytes Occasional Sodium (136-145) mmol/L Potassium (3.5-5.1) mmol/L Chloride (98-107) mmol/L Carbon Dioxide (21-32) mmol/L Anion Gap (3-11) BUN (7-18) mg/dl Creatinine (0.6-1.2) mg/dl Est Cr Clr Drug Dosing ml/min Est GFR ( Amer) Est GFR (Non-Af Amer) BUN/Creatinine Ratio (10-20) Glucose (70-99) mg/dl POC Glucose 80 89 (70-99) Calcium (8.5-10.1) mg/dl Phosphorus (2.5-4.9) mg/dl Magnesium (1.8-2.4) mg/dl 02/19/19 02/19/19 Range/Units 20:22 16:29 WBC (4.8-10.8) K/uL RBC (4.2-5.4) M/uL Hgb (12.0-16.0) g/dL Hct (37-47) % MCV (80-100) fL MCH (25-34) pg MCHC (32-36) g/dL RDW Std Deviation (36.4-46.3) fL RDW Coeff of Valdo (11.5-14.5) % Plt Count (130-400) K/uL MPV (7.4-10.4) fL Immature Gran % (Auto) % Neut % (Auto) % Lymph % (Auto) % [place] % (Auto) % Eos % (Auto) % Baso % (Auto) % Immature Gran # (Auto) (0.00-0.02) K/uL Neut # (Auto) (1.4-6.5) K/uL Lymph # (Auto) (1.2-3.4) K/uL [place] # (Auto) (0.11-0.59) K/uL Eos # (Auto) (0-0.5) K/uL Baso # (Auto) (0-0.2) K/uL Toxic Granulation Dohle Bodies Platelet Estimate (Normal) Echinocytes Schistocytes Sodium (136-145) mmol/L Potassium (3.5-5.1) mmol/L Chloride (98-107) mmol/L Carbon Dioxide (21-32) mmol/L Anion Gap (3-11) BUN (7-18) mg/dl Creatinine (0.6-1.2) mg/dl Est Cr Clr Drug Dosing ml/min Est GFR ( Amer) Est GFR (Non-Af Amer) BUN/Creatinine Ratio (10-20) Glucose (70-99) mg/dl POC Glucose 116 H 200 H (70-99) Calcium (8.5-10.1) mg/dl Phosphorus (2.5-4.9) mg/dl Magnesium (1.8-2.4) mg/dl PG Care Time/CCT Total # of Minutes Spent Total Time Spent with Patient: Total time spent is greater than 50% in coordination of care (as documented) at patient's floor/unit and/or counseling patient: (1) Diabetes mellitus Diabetes mellitus complication status: with hyperglycemia Diabetes mellitus terminal carman insulin use: without terminal carman use Diabetes mellitus type: type 2 Qualified Code(s): E11.65 - Type 2 diabetes mellitus with hyperglycemia (2) Diarrhea Diarrhea type: unspecified type Qualified Code(s): R19.7 - Diarrhea, unspecified
[2019-02-20] MEDS ORDERED: dexAMETHasone 8 MG in SYRINGE 0 ML IV ONE (11:45)
[2019-02-20] MEDS: CLOTRIMAZOLE 10 MG TROCHE BUCCAL SCH ×4 (12:17→23:51)
[2019-02-20] MEDS: DIPHENOXYLATE/ATROPINE 2.5/0.025MG TAB PO PRN (12:18)
--- NOTE | 2019-02-20 12:55 | Hematology/Oncology Prog Note ---
Date of Service February 20, 2019 Assessment & Plan (1) Vomiting: Ms. Masters is slowly recovering. Since she seems to respond well to it, we should send her out with a prescription for the Phenergan. I am concerned about her ability to tolerate more treatment, but given the circumstances, I would like to try at least one more time at a significant dose reduction. She is aware of this plan and has a follow up appointment with me already established. Her counts continue to recover, though her platelets remain slightly low. They should rise on their own as well. Present on Admission?: Yes Subjective Ms. Masters looks a little better this morning. She started phenergan and it seems to have helped her nausea. Her diarrhea is also improving, as it is more solid and less frequent. She is wiped out from a full morning of visitors. She denies any pain and is comfortable in bed. She denied any shortness of breath, headaches, or bleeding. Review of Systems Review of Systems: All systems reviewed & are unremarkable except as noted in HPI & below Physical Exam Constitutional: + thin and comfortable; no acute distress Eyes: + anicteric sclerae ENMT: external ear and nose normal, oropharynx normal Respiratory: normal respiratory effort, lungs clear to auscultation Cardiovascular: RRR, no murmur, no edema Gastrointestinal (Abdomen): Inspection/Auscultation: normal bowel sounds; abdomen not distended Percussion/Palpation: abdomen soft; abdomen nontender Lymphatic: no cervical or axillary lymphadenopathy Results & Data Vital Signs (Past 12 Hours) Vital Signs Temp Pulse Resp BP Pulse Ox 02/20/19 11:34 36.9 C 75 16 101/60 98 02/20/19 07:59 36.6 C 71 16 93/63 L 98 02/20/19 04:20 36.4 C L 78 18 119/71 97 Laboratory Results Laboratory Results - last 24 hr 02/19/19 02/19/19 02/19/19 16:29 20:22 23:41 WBC RBC Hgb Hct MCV MCH MCHC RDW Std Deviation RDW Coeff of Valdo Plt Count MPV Immature Gran % (Auto) Neut % (Auto) Lymph % (Auto) [place] % (Auto) Eos % (Auto) Baso % (Auto) Immature Gran # (Auto) Neut # (Auto) Lymph # (Auto) [place] # (Auto) Eos # (Auto) Baso # (Auto) Toxic Granulation Dohle Bodies Platelet Estimate Echinocytes Schistocytes Sodium Potassium Chloride Carbon Dioxide Anion Gap BUN Creatinine Est Cr Clr Drug Dosing Est GFR ( Amer) Est GFR (Non-Af Amer) BUN/Creatinine Ratio Glucose POC Glucose 200 H 116 H 89 Calcium Phosphorus Magnesium 02/20/19 02/20/19 02/20/19 04:17 06:50 06:50 WBC 5.34 RBC 2.87 L Hgb 8.9 L Hct 25.9 L MCV 90.2 MCH 31.0 MCHC 34.4 RDW Std Deviation 45.0 RDW Coeff of Valdo 13.5 Plt Count 83 L MPV 9.7 Immature Gran % (Auto) 1.5 Neut % (Auto) 79.7 Lymph % (Auto) 9.4 [place] % (Auto) 9.2 Eos % (Auto) 0.0 Baso % (Auto) 0.2 Immature Gran # (Auto) 0.08 H Neut # (Auto) 4.26 Lymph # (Auto) 0.50 L [place] # (Auto) 0.49 Eos # (Auto) 0.00 Baso # (Auto) 0.01 Toxic Granulation 3+ Dohle Bodies 1+ Platelet Estimate Decreased L Echinocytes 2+ Schistocytes Occasional Sodium 142 Potassium 3.3 L Chloride 112 H Carbon Dioxide 21 Anion Gap 9.0 BUN 17 Creatinine 0.93 Est Cr Clr Drug Dosing 43.7 Est GFR ( Amer) 68.7 Est GFR (Non-Af Amer) 59.3 BUN/Creatinine Ratio 18.3 Glucose 81 POC Glucose 80 Calcium 8.2 L Phosphorus 3.4 D Magnesium 1.7 L 02/20/19 02/20/19 07:44 11:41 WBC RBC Hgb Hct MCV MCH MCHC RDW Std Deviation RDW Coeff of Valdo Plt Count MPV Immature Gran % (Auto) Neut % (Auto) Lymph % (Auto) [place] % (Auto) Eos % (Auto) Baso % (Auto) Immature Gran # (Auto) Neut # (Auto) Lymph # (Auto) [place] # (Auto) Eos # (Auto) Baso # (Auto) Toxic Granulation Dohle Bodies Platelet Estimate Echinocytes Schistocytes Sodium Potassium Chloride Carbon Dioxide Anion Gap BUN Creatinine Est Cr Clr Drug Dosing Est GFR ( Amer) Est GFR (Non-Af Amer) BUN/Creatinine Ratio Glucose POC Glucose 94 106 H Calcium Phosphorus Magnesium (1) Vomiting Nausea presence: with nausea Vomiting Intractability: non-intractable Vomiting type: unspecified Qualified Code(s): R11.2 - Nausea with vomiting, unspecified
--- NOTE | 2019-02-20 14:26 | Pharmacy Report ---
Pharmacy Glycemic Short Note 2 - Date of Service February 20, 2019 - Glycemic Short BSG Results (Last 24 hours): 02/19/19 02/19/19 02/19/19 16:29 20:22 23:41 Glucose POC Glucose 200 H 116 H 89 02/20/19 02/20/19 02/20/19 04:17 06:50 07:44 Glucose 81 POC Glucose 80 94 02/20/19 11:41 Glucose POC Glucose 106 H OUTPATIENT ANTIDIABETIC REGIMEN: * metformin 500 mg BID, glipizide 10 mg qAM * A1c = 8.8% ASSESSMENT: 02/20/19: * BSGs do not appear to have been as significantly affected by dexamethasone as was expected. Highest BSG was 200 mg/dL with dinner last evening. * Patient was ordered another dose of DXM 8mg IV x1 dose today. * Will continue to dose insulin similarly, as BSGs have been relatively well- controlled. * Patient rec'd 27 units of basal insulin yesterday 02/19/19 * Rosalba is a 78 year old female T2DM * H/o metastatic pancreatic adenocarcinoma stage IV, hypertension, hyperlipidemia, DM 2, [place]'s disease presents with nausea/vomiting, d iarrhea and weakness status post second round of chemo 4 days ago. * Pharmacy was consulted today due to anticipation of steroid induced hyperglycemia. Pt was given a one time dose of dexamethasone 8 mg IV @1100. * Pt was given an extra 10 units of Lantus with lunch. * Overnight checks have been added. * I will not change Novolog order per current parameters are already aggressive PLAN FOR INPATIENT GLYCEMIC CONTROL: * Basal insulin - * Lantus 20 units SQ this morning * Lantus scale for HS; 0 units for BSG < 200, 8 units for BSG 200 or more * Bolus insulin * NovoLog per scale ACHS or Q6hrs while NPO * Goal Range: Low 110 mg/dL - High 140 mg/dL * Correction Factor: 25 mg/dL/unit * Nutritional / Prandial insulin per carb ratio of 1 unit per 9 grams CHO consumed DISCHARGE PLANNING: * A1c 8.8% indicates slightly sub-optimal (but acceptable) glycemic control in a 78yo patient with multiple comorbidities. * Expect that patient may resume home regimen on discharge. * If patient will be discharged on steroids, her regimen will likely require adjustment.
[2019-02-20] MEDS ORDERED: INSULIN GLARGINE SOLOSTAR 100 UNITS/ML 3 ML PEN SC SCH (21:00)
[2019-02-20] MEDS: BIMATOPROST 0.01% OP SOLN 2.5 ML BTL OP SCH (21:16)
[2019-02-20] MEDS: ENOXAPARIN INJ 30 MG/0.3 ML SYR SQ SCH (23:50)
[2019-02-21] MEDS: LACTATED RINGER'S 1,000 ML IV SCH ×3 (03:20→17:26)
[2019-02-21 07:04] LABS: Hematocrit (blood only) 27.1 % (37-47); Hemoglobin 9.1 g/dL (12.0-16.0); Mean Corpuscular Hemoglobin 30.4 pg (25-34); Mean Corpuscular Hgb Conc 33.6 g/dL (32-36); Mean Corpuscular Volume 90.6 fL (80-100); Nucleated RBC # (auto) 0.06 K/uL (0-0); Nucleated RBC % (auto) 0.8 %; RDW Coefficient of Variation 13.7 % (11.5-14.5); RDW Standard Deviation 45.4 fL (36.4-46.3); Red Blood Count 2.99 M/uL (4.2-5.4); White Blood Count 7.37 K/uL (4.8-10.8)
[2019-02-21 07:42] LABS: BUN Creatinine Ratio 17.6 (10-20); Calcium 8.2 mg/dl (8.5-10.1); Creatinine Clr Calc Pharmacy 43.3 ml/min; Est GFR (African American) 67.8; Est GFR (Non-African American) 58.5; Phosphorus 3.3 mg/dl (2.5-4.9); Potassium 3.1 mmol/L (3.5-5.1)
[2019-02-21] MEDS: CLOTRIMAZOLE 10 MG TROCHE BUCCAL SCH ×5 (07:44→22:24)
[2019-02-21] MEDS ORDERED: Nursing to Pharmacy Communication ONE (07:47)
[2019-02-21 07:51] LABS: ALC (manual) 0.26 K/uL (1.2-3.4); ANC (manual) 6.27 K/uL (1.4-6.5); Dohle Bodies 1+; Echinocytes 1+; Lymphocytes # (manual) 0.26 K/uL (1.2-3.4); Lymphocytes % (manual) 3.5 %; Mean Platelet Volume 9.9 fL (7.4-10.4); Monocytes # (manual) 0.71 K/uL (0.11-0.59); Monocytes % (manual) 9.6 %; Neutrophils # (manual) 6.27 K/uL (1.4-6.5); Neutrophils % (manual) 85.1 %; Platelet Count 91 K/uL (130-400); Promyelocytes # (manual) 0.13 K/uL (0-0); Promyelocytes % (manual) 1.8 %; Toxic Granulation 2+
[2019-02-21] MEDS: MULTIVITAMIN TAB PO SCH (07:58)
[2019-02-21] MEDS: HYDROCORTISONE 1% CRM 30 GM TUBE EXT SCH ×2 (07:58→20:16)
[2019-02-21] MEDS: TIMOLOL MALEATE 0.5% OP SOLN 5 ML BTL OP SCH (07:59)
[2019-02-21] MEDS ORDERED: DEXTROSE 50% 50 ML SYRINGE IV PRN (08:00)
[2019-02-21] MEDS ORDERED: GLUCOSE 40% GEL 15 GM TUBE PO PRN (08:00)
[2019-02-21] MEDS ORDERED: GLUCAGON FOR INJ 1 MG VIAL SQ PRN (08:00)
[2019-02-21] MEDS ORDERED: CARBOHYDRATES FOR HYPOGLYCEMIA PO PRN (08:00)
[2019-02-21] MEDS ORDERED: GLUCOSE 10 TABS/TUBE PO PRN (08:00)
[2019-02-21] MEDS: INSULIN ASPART 100 UNITS/ML 3 ML PEN SC SCH ×4 (08:12→21:51)
[2019-02-21] MEDS: ONDANSETRON HCL 8 MG in DEXTROSE 5% 50 ML IV SCH ×3 (09:05→20:13)
[2019-02-21] MEDS: POTASSIUM CHLORIDE / WTR 20 MEQ/100 ML PLCT IV SCH ×3 (09:27→14:22)
--- NOTE | 2019-02-21 10:49 | Pharmacy Report ---
Pharmacy Glycemic Short Note 2 - Date of Service February 21, 2019 - Glycemic Short BSG Results (Last 24 hours): 02/20/19 02/20/19 02/20/19 11:41 16:26 20:41 Glucose POC Glucose 106 H 86 75 02/21/19 02/21/19 02/21/19 02:31 06:42 07:32 Glucose 50 L* POC Glucose 110 H 50 L* 02/21/19 02/21/19 08:00 08:25 Glucose POC Glucose 58 L* 102 H OUTPATIENT ANTIDIABETIC REGIMEN: * metformin 500 mg BID, glipizide 10 mg qAM * A1c = 8.8% ASSESSMENT: 02/21/19: * Rosalba received 20 units of insulin yesterday (all basal - no bolus) with BSGs ranging from 75-106 mg/dL * Majority of BSGs are below goal. Patient had episode of hypoglycemia this morning (50 mg/dL) likely due to poor oral intake in the setting of recent chemotherapy. Basal insulin was held this morning. I will significantly reduce insulin doses to avoid further hypoglycemia * Dose of dexamethasone IV given yesterday had no impact on glycemic control, therefore Novolog parameters will be loosened. 02/20/19: * BSGs do not appear to have been as significantly affected by dexamethasone as was expected. Highest BSG was 200 mg/dL with dinner last evening. * Patient was ordered another dose of DXM 8mg IV x1 dose today. * Will continue to dose insulin similarly, as BSGs have been relatively well- controlled. * Patient rec'd 27 units of basal insulin yesterday 02/19/19 * Rosalba is a 78 year old female T2DM * H/o metastatic pancreatic adenocarcinoma stage IV, hypertension, hyperlipidemia, DM 2, [place]'s disease presents with nausea/vomiting, diarrhea and weakness status post second round of chemo 4 days ago. * Pharmacy was consulted today due to anticipation of steroid induced hyperglycemia. Pt was given a one time dose of dexamethasone 8 mg IV @1100. * Pt was given an extra 10 units of Lantus with lunch. * Overnight checks have been added. * I will not change Novolog order per current parameters are already aggressive PLAN FOR INPATIENT GLYCEMIC CONTROL: * Basal insulin - decrease * No Lantus this morning * Start Lantus per scale BID: - 0 units for BSG < 180 mg/dL - 5 units for BSG 180 mg/dL or more * Bolus insulin - loosen * NovoLog per scale ACHS or Q6hrs while NPO * Goal Range: Low 110 mg/dL - High 140 mg/dL * Correction Factor: 35 mg/dL/unit * Nutritional / Prandial insulin per carb ratio of 1 unit per 12 grams CHO consumed DISCHARGE PLANNING: * A1c 8.8% indicates slightly sub-optimal (but acceptable) glycemic control in a 78yo patient with multiple comorbidities. * Expect that patient may resume home regimen on discharge. * If patient will be discharged on steroids, her regimen will likely require adjustment.
--- NOTE | 2019-02-21 13:55 | Hospitalist Progress Note ---
Date of Service February 21, 2019 Assessment & Plan (1) Chemotherapy induced nausea and vomiting: Has had improvement in her nausea with Phenergran and 2 doses of daily IV dexamethasone, is now tolerating liquids and ate fruit on 02/21 CT head to r/o metastatic disease negative. -She is now taking some p.o. meds whereas previously she was not able to -However, still refusing solid foods -Continue to hold donepezil, lovastatin, memantine and montelukast at this time -Continue dexamethasone but convert to 2 mg p.o. 3 times daily as recommended by palliative care -Appreciate consult palliative care for ongoing management-dexamethasone versus Haldol if no improvement with Decadron -Advance diet as tolerated -Continue maintenance IV fluids -Replace electrolytes as needed (2) Diarrhea: Improved but still remains, secondary to chemotherapy C. diff negative. Stool culture negative to date. -Continue Lomotil as needed for diarrhea (3) Hypokalemia: Remains low again today. Magnesium normal -Replace with IV potassium chloride-of note, I had to place her on telemetry on 02/21 in order to give potassium chloride through her central line -Follow BMP in the morning (4) Weakness: secondary to poor nutritional intake, chemotherapy and underlying metastatic cancer PT/OT evaluations were performed-OT recommends home with home health or family, PT recommends inpatient rehab (5) Port-A-Cath in place: Noted (6) Vitamin B12 deficiency: -Hold home B12 while having minimal p.o. intake (7) Essential hypertension: Blood pressures on the lower side here, -Continue holding HCTZ -Continue holding losartan -Follow blood pressures (8) Glaucoma: Continue outpatient timolol and bimatoprost drops (9) Dyslipidemia: -Continue to hold lovastatin given noncritical medication in setting of nausea and vomiting. (10) Diabetes mellitus: Blood glucose low this morning -Continue holding home dose of glipizide in light of acute illness. Glycemic management as per pharmacy -Follow blood glucose closely in the setting of IV dexamethasone use -Sliding scale insulin is ordered as well as Lantus dosing as per pharmacy- adjustments to be made by pharmacy (11) Hypomagnesemia: Replaced and now normal -Follow magnesium level in the morning (12) Hypophosphatemia: Now normalized after replacement (13) Antineoplastic chemotherapy induced pancytopenia: Pancytopenia now improving, no transfusions necessary Platelets increased to 91, hemoglobin improved to 9.1, and WBC count up to 7 -no further neutropenic precautions needed -Follow CBC in the morning (14) Severe protein-calorie malnutrition: Nutrition review noted. Recommended boost-patient taking in minimal p.o. (15) Oral candidiasis: Thick exudate on tongue -Started clotrimazole trouches-continue for 14-day course (16) Memory loss: -Continue holding home donepezil and memantine (17) Splenic infarct: Noted on CT scan here, secondary to pancreatic cancer -Not causing pain or symptoms (18) DVT prophylaxis: Lovenox 30mg SQ daily (19) Discharge planning issues: PT, OT evaluations completed-PT recommending inpatient rehab, OT recommending home with home health Disposition-remain hospitalized given continued electrolyte abnormalities and poor p.o. intake Hopeful for discharge in the next 1 to 2 days Subjective Patient reports feeling "crappy" today, but cannot explain to me why. Denies headache or lightheadedness, denies chest pain or shortness of breath, denies abdominal pain. She does report one episode of vomiting today. She reports she is still having some loose stools but less than yesterday. Nausea is currently improved. She is complaining that she cannot reach the drink on her tray. Also complaining about having a roommate that just moved in 1 hour ago and asking if that roommate can be moved out of her room. She does report that she ate some fruit this morning and is drinking juice without problems, but does not want to try any solid foods more than that. Telemetry with normal sinus rhythm with rates in 60s to 70s Review of Systems Review of Systems: All systems reviewed & are unremarkable except as noted in HPI & below Physical Exam Constitutional: WD/WN, vitals as above Eyes: + anicteric sclerae ENMT: Ears: no hearing impairment and no external ear abnormality Mouth: + oral mucosal abnormality (Thick white exudate on tongue and buccal mucosa) Neck: trachea midline, no thyromegaly Respiratory: normal respiratory effort, lungs clear to auscultation Cardiovascular: RRR, no murmur, no edema Chest (Breasts): Chest: normal inspection of chest Gastrointestinal (Abdomen): normal bowel sounds, soft, nontender, no hepatosplenomegaly Musculoskeletal: Extremities: extremities normal to inspection; no cyanosis and no clubbing Skin: no rashes, warm and dry Neurologic: moves all extremities and awake; no focal motor deficits Psychiatric: Orientation: alert, oriented to person and cooperative Lymphatic: no lymphedema Results & Data Vital Signs (Past 12 Hours) Vital Signs Temp Pulse Pulse Resp BP Pulse Ox 02/21/19 12:28 36.7 C 66 18 106/68 96 02/21/19 11:28 66 02/21/19 07:51 36.4 C L 68 18 96/57 L 97 02/21/19 03:50 35.7 C L 66 16 120/71 97 Laboratory Results 02/21/19 02/21/19 02/21/19 Range/Units 16:18 11:26 08:25 WBC (4.8-10.8) K/uL RBC (4.2-5.4) M/uL Hgb (12.0-16.0) g/dL Hct (37-47) % MCV (80-100) fL MCH (25-34) pg MCHC (32-36) g/dL RDW Std Deviation (36.4-46.3) fL RDW Coeff of Valdo (11.5-14.5) % Plt Count (130-400) K/uL MPV (7.4-10.4) fL Absolute Nucleated RBC (0-0) K/uL Nucleated RBC % (auto) % Neutrophils % (Manual) % Lymphocytes % (Manual) % Monocytes % (Manual) % Promyelocytes % (Man) % Neutrophils # (Manual) (1.4-6.5) K/uL Total Absolute Neuts (1.4-6.5) K/uL Lymphocytes # (Manual) (1.2-3.4) K/uL Total Abs Lymphocytes (1.2-3.4) K/uL Monocytes # (Manual) (0.11-0.59) K/uL Promyelocytes # (Man) (0-0) K/uL Blood Smear Review Toxic Granulation Dohle Bodies Echinocytes Sodium (136-145) mmol/L Potassium (3.5-5.1) mmol/L Chloride (98-107) mmol/L Carbon Dioxide (21-32) mmol/L Anion Gap (3-11) BUN (7-18) mg/dl Creatinine (0.6-1.2) mg/dl Est Cr Clr Drug Dosing ml/min Est GFR ( Amer) Est GFR (Non-Af Amer) BUN/Creatinine Ratio (10-20) Glucose (70-99) mg/dl POC Glucose 98 111 H 102 H (70-99) Calcium (8.5-10.1) mg/dl Phosphorus (2.5-4.9) mg/dl Magnesium (1.8-2.4) mg/dl 02/21/19 02/21/19 02/21/19 Range/Units 08:00 07:32 06:42 WBC (4.8-10.8) K/uL RBC (4.2-5.4) M/uL Hgb (12.0-16.0) g/dL Hct (37-47) % MCV (80-100) fL MCH (25-34) pg MCHC (32-36) g/dL RDW Std Deviation (36.4-46.3) fL RDW Coeff of Valdo (11.5-14.5) % Plt Count (130-400) K/uL MPV (7.4-10.4) fL Absolute Nucleated RBC (0-0) K/uL Nucleated RBC % (auto) % Neutrophils % (Manual) % Lymphocytes % (Manual) % Monocytes % (Manual) % Promyelocytes % (Man) % Neutrophils # (Manual) (1.4-6.5) K/uL Total Absolute Neuts (1.4-6.5) K/uL Lymphocytes # (Manual) (1.2-3.4) K/uL Total Abs Lymphocytes (1.2-3.4) K/uL Monocytes # (Manual) (0.11-0.59) K/uL Promyelocytes # (Man) (0-0) K/uL Blood Smear Review Toxic Granulation Dohle Bodies Echinocytes Sodium 140 (136-145) mmol/L Potassium 3.1 L (3.5-5.1) mmol/L Chloride 111 H (98-107) mmol/L Carbon Dioxide 22 (21-32) mmol/L Anion Gap 8.0 (3-11) BUN 17 (7-18) mg/dl Creatinine 0.94 (0.6-1.2) mg/dl Est Cr Clr Drug Dosing 43.3 ml/min Est GFR ( Amer) 67.8 Est GFR (Non-Af Amer) 58.5 BUN/Creatinine Ratio 17.6 (10-20) Glucose 50 L* (70-99) mg/dl POC Glucose 58 L* 50 L* (70-99) Calcium 8.2 L (8.5-10.1) mg/dl Phosphorus 3.3 (2.5-4.9) mg/dl Magnesium 2.0 (1.8-2.4) mg/dl 02/21/19 02/21/19 02/20/19 Range/Units 06:42 02:31 20:41 WBC 7.37 (4.8-10.8) K/uL RBC 2.99 L (4.2-5.4) M/uL Hgb 9.1 L (12.0-16.0) g/dL Hct 27.1 L (37-47) % MCV 90.6 (80-100) fL MCH 30.4 (25-34) pg MCHC 33.6 (32-36) g/dL RDW Std Deviation 45.4 (36.4-46.3) fL RDW Coeff of Valdo 13.7 (11.5-14.5) % Plt Count 91 L (130-400) K/uL MPV 9.9 (7.4-10.4) fL Absolute Nucleated RBC 0.06 H (0-0) K/uL Nucleated RBC % (auto) 0.8 % Neutrophils % (Manual) 85.1 % Lymphocytes % (Manual) 3.5 % Monocytes % (Manual) 9.6 % Promyelocytes % (Man) 1.8 % Neutrophils # (Manual) 6.27 (1.4-6.5) K/uL Total Absolute Neuts 6.27 (1.4-6.5) K/uL Lymphocytes # (Manual) 0.26 L (1.2-3.4) K/uL Total Abs Lymphocytes 0.26 L (1.2-3.4) K/uL Monocytes # (Manual) 0.71 H (0.11-0.59) K/uL Promyelocytes # (Man) 0.13 H (0-0) K/uL Blood Smear Review Toxic Granulation 2+ Dohle Bodies 1+ Echinocytes 1+ Sodium (136-145) mmol/L Potassium (3.5-5.1) mmol/L Chloride (98-107) mmol/L Carbon Dioxide (21-32) mmol/L Anion Gap (3-11) BUN (7-18) mg/dl Creatinine (0.6-1.2) mg/dl Est Cr Clr Drug Dosing ml/min Est GFR ( Amer) Est GFR (Non-Af Amer) BUN/Creatinine Ratio (10-20) Glucose (70-99) mg/dl POC Glucose 110 H 75 (70-99) Calcium (8.5-10.1) mg/dl Phosphorus (2.5-4.9) mg/dl Magnesium (1.8-2.4) mg/dl PG Care Time/CCT Total # of Minutes Spent Total Time Spent with Patient: Total time spent is greater than 50% in coordination of care (as documented) at patient's floor/unit and/or counseling patient: (1) Diabetes mellitus Diabetes mellitus complication status: with hyperglycemia Diabetes mellitus fci insulin use: without terminal computer operator use Diabetes mellitus type: type 2 Qualified Code(s): E11.65 - Type 2 diabetes mellitus with hyperglycemia (2) Diarrhea Diarrhea type: unspecified type Qualified Code(s): R19.7 - Diarrhea, unspecified
[2019-02-21] MEDS: HEPARIN 100 UNIT/ML 5ML FLUSH IV PRN (17:27)
[2019-02-21] MEDS: BIMATOPROST 0.01% OP SOLN 2.5 ML BTL OP SCH (20:17)
[2019-02-21] MEDS: dexAMETHasone 1 MG TAB PO SCH (20:18)
[2019-02-21] MEDS: INSULIN GLARGINE SOLOSTAR 100 UNITS/ML 3 ML PEN SC SCH (21:51)
[2019-02-21] MEDS: ENOXAPARIN INJ 30 MG/0.3 ML SYR SQ SCH (22:39)
[2019-02-22] MEDS: DIPHENOXYLATE/ATROPINE 2.5/0.025MG TAB PO PRN ×2 (01:45→14:40)
[2019-02-22] MEDS ORDERED: INSULIN ASPART 100 UNITS/ML 3 ML PEN SC SCH (02:00)
[2019-02-22] MEDS: PROMETHAZINE HCL 12.5 MG in SODIUM CHLORIDE 0.9% 50 ML IV PRN (02:10)
[2019-02-22] MEDS: LACTATED RINGER'S 1,000 ML IV SCH (04:52)
[2019-02-22 05:57] LABS: Nucleated RBC # (auto) 0.13 K/uL (0-0); Nucleated RBC % (auto) 1.5 %
[2019-02-22 05:58] LABS: Hemoglobin 10.2 g/dL (12.0-16.0); Mean Corpuscular Hemoglobin 30.7 pg (25-34); Mean Corpuscular Volume 90.4 fL (80-100); Mean Platelet Volume 10.4 fL (7.4-10.4); Platelet Count 144 K/uL (130-400); RDW Coefficient of Variation 13.8 % (11.5-14.5); RDW Standard Deviation 45.1 fL (36.4-46.3); Red Blood Count 3.32 M/uL (4.2-5.4); White Blood Count 8.92 K/uL (4.8-10.8)
[2019-02-22 06:33] LABS: BUN Creatinine Ratio 14.1 (10-20); Creatinine Clr Calc Pharmacy 38.4 ml/min; Est GFR (African American) 58.7; Est GFR (Non-African American) 50.6; Magnesium 1.7 mg/dl (1.8-2.4); Phosphorus 2.8 mg/dl (2.5-4.9); Potassium 3.9 mmol/L (3.5-5.1)
[2019-02-22 06:36] LABS: Basophils # (auto) 0.05 K/uL (0-0.2); Basophils % (auto) 0.6 %; Echinocytes 1+; Eosinophils # (auto) 0.01 K/uL (0-0.5); Eosinophils % (auto) 0.1 %; Immature Granulocytes # (auto) 0.86 K/uL (0.00-0.02); Immature Granulocytes % (auto) 9.6 %; Lymphocytes # (auto) 0.94 K/uL (1.2-3.4); Lymphocytes % (auto) 10.5 %; Monocytes # (auto) 1.18 K/uL (0.11-0.59); Monocytes % (auto) 13.2 %; Neutrophils # (auto) 5.88 K/uL (1.4-6.5); Toxic Granulation 2+
[2019-02-22] MEDS: CLOTRIMAZOLE 10 MG TROCHE BUCCAL SCH ×5 (06:46→21:37)
[2019-02-22] MEDS: HYDROCORTISONE 1% CRM 30 GM TUBE EXT SCH ×2 (08:02→21:42)
[2019-02-22] MEDS: TIMOLOL MALEATE 0.5% OP SOLN 5 ML BTL OP SCH (08:03)
[2019-02-22] MEDS: dexAMETHasone 1 MG TAB PO SCH ×3 (08:03→21:35)
[2019-02-22] MEDS: ONDANSETRON HCL 8 MG in DEXTROSE 5% 50 ML IV SCH ×3 (08:09→21:37)
[2019-02-22] MEDS: MAGNESIUM SULFATE / D5W 1 GM/100 ML BAG IV SCH (09:21)
[2019-02-22] MEDS: D5W AND 1/2NSS + 20MEQ KCL 20 MEQ/1,000 ML BAG IV SCH ×2 (09:22→18:19)
[2019-02-22] MEDS: INSULIN ASPART 100 UNITS/ML 3 ML PEN SC SCH ×5 (10:23→23:46)
[2019-02-22] MEDS: INSULIN GLARGINE SOLOSTAR 100 UNITS/ML 3 ML PEN SC SCH ×2 (10:24→22:32)
--- NOTE | 2019-02-22 13:42 | Pharmacy Report ---
Glycemic Control Progress Note - Date of Service February 22, 2019 - Scope Glycemic Pharmacist consulted for glycemic control to write orders per [facility] inpatient glycemic control protocol. - Objective Accuchecks BSG(last 24 hours):: 02/21/19 02/21/19 02/22/19 16:18 20:38 01:43 Glucose POC Glucose 98 83 78 02/22/19 02/22/19 02/22/19 05:36 07:30 11:36 Glucose 86 POC Glucose 86 159 H - Recent Pertinent Medications The patient is currently receiving: * Basal insulin: Lantus 5 units every 12 hours (only if BSG greater than 180 mg/dL) * Correctional Insulin: Novolog Correction per scale ACHS Goal Range: Low 110 mg/dL - High 140 mg/dL Correction Factor: 35 mg/dL/unit * Prandial insulin: Per carb ratio of 1 unit per 12 grams CHO consumed - Outpatient Anti-Diabetic Meds metformin 500 mg BID glipizide 10 mg daily - Assessment & Plan ASSESSMENT: * See progress note from 02/19/19 for more background info, in short: * Pt receiving SQ basal bolus insulin regimen for hyperglycemia secondary to baseline DM (outpatient regimen on hold) and starting dexamethasone 2 mg PO TID. * Patient is currently receiving an average of 0 units of insulin per day * 0 units of basal insulin * 0 units of prandial/correctional insulin * BSGs ranging 50 - 98 mg/dl over the past 24hrs * Changes needed to insulin regimen: * AM Fasting BSG = 86 mg/dl. This is below goal range for patient based on inpatient targets and co-morbidities. The patient last received Lantus in the morning of 02/20/19. Uncertain when patient's blood sugars will rebound to require Lantus. A1C is uncontrolled with two oral agents. Patient started on dexamethasone so expect blood sugars to increase. Start scale this evening with highest dose of 10 units available. This is half what patient received the last time. I do not expect blood sugars to rise as much with this patient as she is not eating. * Post-prandial BSGs are in range therefore no changes needed to CF/CR. * Total daily dose = <10 units. Expect this to increase with use of steroids. PLAN FOR INPATIENT GLYCEMIC CONTROL: * INCREASING Lantus to 0-10 units SQ BID * hold if blood sugar under 120 mg/dL * 5 units if blood sugar 120-180 mg/dL * 10 units if blood sugar over 180 mg/dL * Continuing correction factor to 35 mg/dl/unit * Continuing carb ratio to 1 unit per 12 grams CHO consumed * Continuing goal range to Low 110 mg/dL - High 140 mg/dL * Please note that the plan above was derived based on current level of insulin resistance and hospital stress. These recommendations are appropriate for inpatient admission only. Plan of care upon discharge will need to be reassessed to avoid potential outpatient hypo/hyperglycemia. Thank you.
--- NOTE | 2019-02-22 14:41 | Hospitalist Progress Note ---
Date of Service February 22, 2019 Assessment & Plan (1) Chemotherapy induced nausea and vomiting: Has had improvement in her nausea with Phenergran and 2 doses of daily IV dexamethasone, is now tolerating liquids and ate fruit on 02/21 CT head to r/o metastatic disease negative. -She is now taking some p.o. meds whereas previously she was not able to - Continues to refuse solid food -Continue to hold donepezil, lovastatin, memantine and montelukast at this time -Continue dexamethasone 2 mg p.o. 3 times daily as recommended by palliative care -Appreciate consult palliative care for ongoing management-dexamethasone versus Haldol if no improvement with Decadron -Continue maintenance IV fluids (2) Diarrhea: Improved but still remains, secondary to chemotherapy C. diff negative. Stool culture negative to date. -Continue Lomotil as needed for diarrhea (3) Hypokalemia: Potassium normal today. Magnesium low - replaced (4) Weakness: secondary to poor nutritional intake, chemotherapy and underlying metastatic cancer PT/OT evaluations were performed-OT recommends home with home health or family, PT recommends inpatient rehab Appreciate CM assistance (5) Port-A-Cath in place: Noted (6) Vitamin B12 deficiency: -Hold home B12 while having minimal p.o. intake (7) Essential hypertension: Blood pressures low normal - hold HCTZ, losartan for now (8) Glaucoma: Continue outpatient timolol and bimatoprost drops (9) Dyslipidemia: -Continue to hold lovastatin given noncritical medication in setting of nausea and vomiting. (10) Diabetes mellitus: -Continue holding home dose of glipizide in light of acute illness - SS, lantus while inpatient Glycemic management as per pharmacy (11) Hypomagnesemia: Replaced (12) Hypophosphatemia: Now normalized after replacement (13) Antineoplastic chemotherapy induced pancytopenia: Pancytopenia resolving -Follow CBC in the morning (14) Severe protein-calorie malnutrition: Nutrition review noted. Recommended boost-patient taking in minimal p.o. (15) Oral candidiasis: Thick exudate on tongue -Started clotrimazole trouches-continue for 14-day course (16) Memory loss: -Continue holding home donepezil and memantine (17) Splenic infarct: Noted on CT scan here, secondary to pancreatic cancer -Not causing pain or symptoms (18) DVT prophylaxis: Lovenox 30mg SQ daily (19) Discharge planning issues: PT, OT evaluations completed-PT recommending inpatient rehab, OT recommending home with home health Disposition-remain hospitalized given continued electrolyte abnormalities and poor p.o. intake Transfer off of telemetry Subjective Ms. Masters is feeling very tired and worn out. She has not had any vomiting today but does not want to eat any food. She continues to have loose stools per the nursing notes. She has been drinking liquids. She denies any pain. ROS Constitutional: no chills, aches, sweats or fever Respiratory: no sob,cough, sputum, or wheezing Cardiac: no chest pain, palpitations, edema, orthopnea or lightheadedness GI: See HPI : no dysuria or hesitancy Extremities: no joint pain or weakness Skin: no rash All other systems reviewed and negative Physical Exam Physical Exam: General: tired appearing Eyes: normal inspection, PERLL Respiratory: chest non tender, clear to auscultation, normal breath sounds, no respiratory distress, no accessory muscle use Cardiac: regular rate and rhythm, no rub or gallop, no murmur, no edema, no jvd GI/: active bowel sounds, no abd pain or tenderness, soft, non distended Extremities: normal range of motion, normal strength, non tender Neuro/Psych: alert and oriented x 3, normal mood and affect Skin: pale, dry Results & Data Vital Signs (Past 12 Hours) Vital Signs Temp Pulse Resp BP BP Pulse Ox 02/22/19 11:33 36.6 C 71 18 115/65 99 02/22/19 07:13 37.2 C 90 18 145/72 H 96 02/22/19 03:11 36.8 C 70 17 110/68 99 PG Care Time/CCT Total # of Minutes Spent Total Time Spent with Patient: Total time spent is greater than 50% in coordination of care (as documented) at patient's floor/unit and/or counseling patient: (1) Diabetes mellitus Diabetes mellitus complication status: with hyperglycemia Diabetes mellitus jail insulin use: without terminal press operator use Diabetes mellitus type: type 2 Qualified Code(s): E11.65 - Type 2 diabetes mellitus with hyperglycemia (2) Diarrhea Diarrhea type: unspecified type Qualified Code(s): R19.7 - Diarrhea, unspecified
[2019-02-22] MEDS ORDERED: PROCHLORPERAZINE MALEATE 10 MG TAB PO SCH (17:00)
[2019-02-22] MEDS: BIMATOPROST 0.01% OP SOLN 2.5 ML BTL OP SCH (21:41)
[2019-02-22] MEDS ORDERED: ONDANSETRON 8 MG TABLET PO SCH (22:00)
[2019-02-22] MEDS: ENOXAPARIN INJ 30 MG/0.3 ML SYR SQ SCH (22:31)
[2019-02-23] MEDS: DIPHENOXYLATE/ATROPINE 2.5/0.025MG TAB PO PRN ×3 (00:08→19:49)
[2019-02-23] MEDS: INSULIN ASPART 100 UNITS/ML 3 ML PEN SC SCH ×5 (04:58→20:07)
[2019-02-23] MEDS: D5W AND 1/2NSS + 20MEQ KCL 20 MEQ/1,000 ML BAG IV SCH (04:59)
[2019-02-23] MEDS: CLOTRIMAZOLE 10 MG TROCHE BUCCAL SCH ×5 (06:09→23:51)
[2019-02-23] MEDS: ONDANSETRON HCL 8 MG in DEXTROSE 5% 50 ML IV SCH ×3 (08:14→20:04)
[2019-02-23] MEDS: CHOLECALCIFEROL 1,000 UNITS TAB PO SCH (08:17)
[2019-02-23] MEDS: dexAMETHasone 1 MG TAB PO SCH ×3 (08:18→20:01)
[2019-02-23] MEDS: TIMOLOL MALEATE 0.5% OP SOLN 5 ML BTL OP SCH (08:19)
[2019-02-23] MEDS: POTASSIUM CHLORIDE 20 MEQ TABCR PO SCH (08:19)
[2019-02-23] MEDS: HYDROCORTISONE 1% CRM 30 GM TUBE EXT SCH ×2 (08:19→20:01)
[2019-02-23] MEDS: CYANOCOBALAMIN 500 MCG TABLET (VITAMIN B-12) PO SCH (08:20)
[2019-02-23] MEDS ORDERED: INSULIN GLARGINE SOLOSTAR 100 UNITS/ML 3 ML PEN SC ONE (09:00)
[2019-02-23 09:54] LABS: Albumin Level 1.6 gm/dl (3.4-5.0); BUN Creatinine Ratio 11.6 (10-20); Calcium 7.4 mg/dl (8.5-10.1); Creatinine Clr Calc Pharmacy 34.5 ml/min; Est GFR (African American) 51.5; Est GFR (Non-African American) 44.5; Magnesium 1.8 mg/dl (1.8-2.4); Phosphorus 2.3 mg/dl (2.5-4.9); Potassium 3.6 mmol/L (3.5-5.1)
[2019-02-23 09:56] LABS: Albumin Globulin Ratio 0.7 (0.9-2); Bilirubin,Total 0.3 mg/dl (0.2-1); Globulin 2.3 gm/dl (2.5-4.0); Total Protein 3.9 gm/dl (6.4-8.2)
[2019-02-23] MEDS: HEPARIN 100 UNIT/ML 5ML FLUSH IV PRN (13:21)
--- NOTE | 2019-02-23 13:21 | Pharmacy Report ---
Glycemic Control Progress Note - Date of Service February 23, 2019 - Scope Glycemic Pharmacist consulted for glycemic control to write orders per [facility] inpatient glycemic control protocol. - Objective Accuchecks BSG(last 24 hours):: 02/22/19 02/22/19 02/22/19 16:10 20:05 23:44 Glucose POC Glucose 230 H 271 H 263 H 02/23/19 02/23/19 02/23/19 04:23 07:43 09:24 Glucose 246 H POC Glucose 254 H 279 H 02/23/19 11:35 Glucose POC Glucose 212 H - Recent Pertinent Medications The patient is currently receiving: * Basal insulin: Lantus 0-10 units every 12 hours (0 UNITS IF BSG < 120 MG/DL; 5 UNITS IF BSG 120-180 MG/DL; 10 UNITS IF BSG > 180 MG/DL * Correctional Insulin: Novolog Correction per scale ACHS Goal Range: Low 110 mg/dL - High 140 mg/dL Correction Factor: 35 mg/dL/unit * Prandial insulin: Per carb ratio of 1 unit per 12 grams CHO consumed - Outpatient Anti-Diabetic Meds metformin 500 mg PO BID plus glipizide 10 mg daily - Assessment & Plan ASSESSMENT: * See progress note from 02/19/19 for more background info, in short: * Pt receiving SQ basal bolus insulin regimen for hyperglycemia secondary to baseline DM (outpatient regimen on hold) and dexamethasone 2 mg PO TID. * Patient is currently receiving an average of 23 units of insulin per day * 10 units of basal insulin * 13 units of prandial/correctional insulin * BSGs ranging 86 - 271 mg/dl over the past 24hrs * Changes needed to insulin regimen: * AM Fasting BSG = 279 mg/dl. This is above goal range for patient based on inpatient targets and co-morbidities. The patient's blood sugars have rapidly increased even with a poor diet due to steroids. Will give Lantus 15 units today since patient received an extra 5 units overnight. Will not be extremely aggressive with Lantus at this point because with steroids, it is desirable to have a 40/60 split basal/bolus. Same scale for this evening. Once steroids are discontinued expect rapid fall of blood sugars as evidence in this hospitalization. * Post-prandial BSGs are elevated - tighten CF significantly. May require some more Lantus. Will add overnight checks. * Total daily dose = 40-50 units. Pushing towards a more bolus heavy regimen. PLAN FOR INPATIENT GLYCEMIC CONTROL: * Continuing Lantus 0-10 units SQ BID * Hold Lantus if BSG < 120 mg/dL * Lantus 5 units if BSG 120-180 mg/dL * Lantus 10 units if BSG > 180 mg/dL * TIGHTENING correction factor to 18 mg/dl/unit * TIGHTENING carb ratio to 1 unit per 6 grams CHO consumed * Continuing goal range of Low 110 mg/dL - High 140 mg/dL RECOMMENDATIONS FOR DISCHARGE: * see note from 02/22/19 * Please note that the plan above was derived based on current level of insulin resistance and hospital stress. These recommendations are appropriate for inpatient admission only. Plan of care upon discharge will need to be reassessed to avoid potential outpatient hypo/hyperglycemia. Thank you.
--- NOTE | 2019-02-23 14:16 | Hematology/Oncology Prog Note ---
Date of Service February 23, 2019 Assessment & Plan (1) Vomiting: Ms. Masters is still struggling to get calories in. Her issue now seems to be more anorexia than nausea, so I agree with a trial of some appetite stimulants. Her chemo was close to 2 weeks ago now, so I expect most of the chemo-related nausea is fading. 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 Cancer itself also tends to cause anorexia. She has no symptoms of a bowel obstruction at this time. I would continue with supportive care as she is receiving it. However, if she continues to fail to progress, we could get a CT to determine if there is a component of progressive disease. Subjective Ms. Masters is still struggling to eat. She complains of anorexia now more than nausea. She just has little desire to eat. She has been using some appetite stimulants and they help a bit. She denies any discomfort when she does eat. She has no obstructive symptoms. She is tired but otherwise comfortable. Review of Systems Review of Systems: See HPI for pertinent positives and negatives. Physical Exam Constitutional: + thin and comfortable; no acute distress Eyes: + anicteric sclerae ENMT: external ear and nose normal, oropharynx normal Respiratory: normal respiratory effort, lungs clear to auscultation Cardiovascular: RRR, no murmur, no edema Gastrointestinal (Abdomen): Inspection/Auscultation: normal bowel sounds; abdomen not distended Percussion/Palpation: abdomen soft; abdomen nontender Lymphatic: no cervical or axillary lymphadenopathy Results & Data Vital Signs (Past 12 Hours) Vital Signs Temp Pulse Resp BP Pulse Ox 02/23/19 07:10 36.5 C 76 20 115/72 96 Laboratory Results Abnormal lab results 02/22/19 02/22/19 02/22/19 Range/Units 16:10 20:05 23:44 Chloride (98-107) mmol/L Glucose (70-99) mg/dl POC Glucose 230 H 271 H 263 H (70-99) Calcium (8.5-10.1) mg/dl Phosphorus (2.5-4.9) mg/dl AST (15-37) U/L ALT (12-78) U/L Alkaline Phosphatase (45-117) U/L Total Protein (6.4-8.2) gm/dl Albumin (3.4-5.0) gm/dl Globulin (2.5-4.0) gm/dl Albumin/Globulin Ratio (0.9-2) Vitamin B12 (211-911) pg/ml 02/23/19 02/23/19 02/23/19 Range/Units 04:23 07:43 09:24 Chloride 111 H (98-107) mmol/L Glucose 246 H (70-99) mg/dl POC Glucose 254 H 279 H (70-99) Calcium 7.4 L (8.5-10.1) mg/dl Phosphorus (2.5-4.9) mg/dl AST 124 H (15-37) U/L ALT 131 H (12-78) U/L Alkaline Phosphatase 131 H (45-117) U/L Total Protein 3.9 L (6.4-8.2) gm/dl Albumin 1.6 L (3.4-5.0) gm/dl Globulin 2.3 L (2.5-4.0) gm/dl Albumin/Globulin Ratio 0.7 L (0.9-2) Vitamin B12 (211-911) pg/ml 02/23/19 02/23/19 02/23/19 Range/Units 09:24 11:35 12:27 Chloride (98-107) mmol/L Glucose (70-99) mg/dl POC Glucose 212 H (70-99) Calcium (8.5-10.1) mg/dl Phosphorus 2.3 L (2.5-4.9) mg/dl AST (15-37) U/L ALT (12-78) U/L Alkaline Phosphatase (45-117) U/L Total Protein (6.4-8.2) gm/dl Albumin (3.4-5.0) gm/dl Globulin (2.5-4.0) gm/dl Albumin/Globulin Ratio (0.9-2) Vitamin B12 > 2000 H (211-911) pg/ml (1) Vomiting Nausea presence: with nausea Vomiting Intractability: non-intractable Vomiting type: unspecified Qualified Code(s): R11.2 - Nausea with vomiting, unspecified
--- NOTE | 2019-02-23 15:07 | Hospitalist Progress Note ---
Date of Service February 23, 2019 Assessment & Plan (1) Decreased appetite: Lack of appetite at this stage is likely related to underlying cancer and gastric ileus. No significant improvement with dexamethasone with regards to appetite Add mirtazapine at night (preferred over Megace as discussed with Dr. Scruggs) Stop IV fluids as this may be suppressing her appetite. (2) Severe protein-calorie malnutrition: Discussed NG tube feeds with Dr. Scruggs. Without any significant reversible etiology known this would not be advisable. No significant mass- effect from pancreatic cancer that would suggest her appetite would benefit from ongoing chemotherapy. Further family meetings likely needed in the coming days to determine goals of care if her appetite remains negligible. (3) Chemotherapy induced nausea and vomiting: Nausea and vomiting mostly resolved until she has something to eat. Most likely her residual nausea is not chemotherapy-induced but inherent to her cancer. Will continue LATOYA Zofran, PRN Pherergran and dexamethasone as per palliative recommendations. Will need to arrange family meeting once palliative back tomorrow. CT head negative for metastatic disease. CT A/P without obstruction or much progression of Appetite suppression likely secondary to dementia with metastatic pancreatic ca. - She is now taking some p.o. meds whereas previously she was not able to - Continues to refuse solid food - Continue to hold donepezil, lovastatin, memantine and montelukast at this time - Continue dexamethasone 2 mg p.o. 3 times daily as recommended by palliative care (4) Diarrhea: Improved but still remains, secondary pancreatic ca. with mets C. diff negative. Stool culture negative. Continue Lomotil as needed for diarrhea (5) Hypokalemia: Secondary to diarrhea Continue supplementation (6) Weakness: secondary to poor nutritional intake, chemotherapy and underlying metastatic cancer PT/OT evaluations were performed-OT recommends home with home health or family, PT recommends inpatient rehab Appreciate CM assistance (7) Port-A-Cath in place: Noted (8) Essential hypertension: Blood pressures low normal - stop HCTZ, losartan (9) Glaucoma: Continue outpatient timolol and bimatoprost drops (10) Dyslipidemia: Continue to hold lovastatin given noncritical medication in setting of nausea and vomiting. (11) Diabetes mellitus: Continue holding home dose of glipizide in light of acute illness. Current hyperglycemia secondary to steroid use. SS, lantus to cover steroid induced hyperglycemia. Glycemic management as per pharmacy (12) Hypomagnesemia: Mg 1.8. Monitor Q2D and replace as necessary (13) Hypophosphatemia: Monitor Q2D. Replace as necessary. (14) Antineoplastic chemotherapy induced pancytopenia: Resolved (15) Oral candidiasis: Thick exudate on tongue Started on 02/22 clotrimazole trouches-continue for 14-day course (16) Memory loss: Continue holding home donepezil and memantine as unclear if these were contributing towards nausea. (17) Splenic infarct: Likely local hypercoagulable effect from pancreatic cancer. However discussed with Dr. Scruggs and recommended full anticoagulation for this with Lovenox. Lovenox 1 mg/kg every 12 hours (18) Elevated LFTs: Unclear cause of acute rise since no new medications started and nausea improved. Will continue to trend. (19) DVT prophylaxis: Lovenox 1mg/kg Q12H (20) Discharge planning issues: PT, OT evaluations completed Disposition-remain hospitalized given continued electrolyte abnormalities and poor p.o. intake Subjective Patient seen lying in bed. She reports no ongoing nausea however she is afraid to try boost drinks as this previously made her vomit. Only managed to bites of breakfast this morning. She denies any dysphagia, odynophagia. Willing to try mirtazepine to help with her appetite. Discussed briefly some goals of care but she does not wish to make any decisions and defers to her family and Dr. Scruggs. Discussed ongoing care over the phone with Dr Scruggs. Review of Systems Review of Systems: All systems reviewed & are unremarkable except as noted in HPI & below Physical Exam Constitutional: + cachectic and + malnourished; no acute distress Eyes: + anicteric sclerae; normal pupil size Neck: trachea midline Respiratory: normal respiratory effort, lungs clear to auscultation Cardiovascular: RRR, no murmur, no edema Gastrointestinal (Abdomen): normal bowel sounds, soft, nontender, no hepatosplenomegaly Inspection/Auscultation: abdomen normal to inspection and normal bowel sounds; abdomen not distended Percussion/Palpation: abdomen soft; abdomen nontender, no guarding and abdomen not rigid Musculoskeletal: no cyanosis or clubbing, extremities motor strength 5/5 Skin: no rashes, warm and dry Neurologic: moves all extremities and awake; no focal motor deficits and not confused Psychiatric: A+Ox3, euthymic affect Results & Data Vital Signs (Past 12 Hours) Vital Signs Temp Pulse Resp BP Pulse Ox 02/23/19 07:10 97.7 F 76 20 115/72 96 PG Care Time/CCT Total # of Minutes Spent Total Time Spent with Patient: Total time spent is greater than 50% in coordination of care (as documented) at patient's floor/unit and/or counseling patient: (1) Diabetes mellitus Diabetes mellitus complication status: with hyperglycemia Diabetes mellitus penitentiary insulin use: without penitentiary use Diabetes mellitus type: type 2 Qualified Code(s): E11.65 - Type 2 diabetes mellitus with hyperglycemia (2) Diarrhea Diarrhea type: unspecified type Qualified Code(s): R19.7 - Diarrhea, unspecified
[2019-02-23] MEDS: ENOXAPARIN INJ 60 MG/0.6 ML SYR SQ SCH (17:22)
[2019-02-23] MEDS: BIMATOPROST 0.01% OP SOLN 2.5 ML BTL OP SCH (20:00)
[2019-02-23] MEDS: MIRTAZAPINE SOLTAB 15 MG PO SCH (20:02)
[2019-02-23] MEDS: INSULIN GLARGINE SOLOSTAR 100 UNITS/ML 3 ML PEN SC SCH (20:08)
[2019-02-24] MEDS: ENOXAPARIN INJ 60 MG/0.6 ML SYR SQ SCH ×2 (04:33→16:56)
[2019-02-24] MEDS: CYANOCOBALAMIN 500 MCG TABLET (VITAMIN B-12) PO SCH (07:42)
[2019-02-24] MEDS: POTASSIUM CHLORIDE 20 MEQ TABCR PO SCH (07:42)
[2019-02-24] MEDS: TIMOLOL MALEATE 0.5% OP SOLN 5 ML BTL OP SCH (07:42)
[2019-02-24] MEDS: dexAMETHasone 1 MG TAB PO SCH (07:43)
[2019-02-24] MEDS: CHOLECALCIFEROL 1,000 UNITS TAB PO SCH (07:43)
[2019-02-24] MEDS: HYDROCORTISONE 1% CRM 30 GM TUBE EXT SCH ×2 (07:45→20:34)
[2019-02-24] MEDS: CLOTRIMAZOLE 10 MG TROCHE BUCCAL SCH ×4 (07:45→19:32)
[2019-02-24] MEDS: ONDANSETRON HCL 8 MG in DEXTROSE 5% 50 ML IV SCH ×3 (07:47→20:35)
[2019-02-24] MEDS: HEPARIN 100 UNIT/ML 5ML FLUSH IV PRN (07:47)
[2019-02-24 08:19] LABS: Albumin Level 1.7 gm/dl (3.4-5.0); BUN Creatinine Ratio 11.2 (10-20); Calcium 7.7 mg/dl (8.5-10.1); Est GFR (African American) 54.3; Est GFR (Non-African American) 46.8; Potassium 3.6 mmol/L (3.5-5.1)
[2019-02-24 08:21] LABS: Albumin Globulin Ratio 0.7 (0.9-2); Bilirubin,Total 0.5 mg/dl (0.2-1); Globulin 2.4 gm/dl (2.5-4.0); Total Protein 4.1 gm/dl (6.4-8.2)
[2019-02-24] MEDS: INSULIN ASPART 100 UNITS/ML 3 ML PEN SC SCH ×4 (11:27→20:34)
[2019-02-24] MEDS ORDERED: INSULIN GLARGINE SOLOSTAR 100 UNITS/ML 3 ML PEN SC ONE ×2 (12:15→21:00)
[2019-02-24] MEDS: PROMETHAZINE HCL 12.5 MG in SODIUM CHLORIDE 0.9% 50 ML IV PRN (12:19)
--- NOTE | 2019-02-24 12:58 | Hospitalist Progress Note ---
Date of Service February 24, 2019 Assessment & Plan (1) Decreased appetite: Lack of appetite at this stage is likely related to underlying cancer and gastric ileus. Continues to have no significant improvement despite treatment with dexamethasone x 6 days with regards to appetite--> will dc dexamethasone Added mirtazapine at night (preferred over Megace as discussed with Dr. Scruggs)--> will continue this nad see if helps Stopped IV fluids as this may be suppressing her appetite. -dc phenergan as may be worsening her mentation -continue zofran prn -repeat CT Abd/pel 02/24 with similar findings as before except with increasing ascites and pleural effusions likely from hypoalbuminemia -continue to follow daily labs -will discuss next steps with Oncology (2) Severe protein-calorie malnutrition: Discussed NG tube feeds with Dr. Scruggs. Without any significant reversible etiology known this would not be advisable. No significant mass- effect from pancreatic cancer that would suggest her appetite would benefit from ongoing chemotherapy. Further family meetings likely needed in the coming days to determine goals of care if her appetite remains negligible. (3) Chemotherapy induced nausea and vomiting: As above CT head negative for metastatic disease. CT A/P without obstruction or much progression of CA Appetite suppression likely secondary to dementia with metastatic pancreatic ca. - She is now taking some p.o. meds whereas previously she was not able to - Continues to refuse solid food - Continue to hold donepezil, lovastatin, memantine and montelukast at this time -mirtazapine as above (4) Diarrhea: Improved, secondary pancreatic ca. with mets and chemotherapy C. diff negative. Stool culture negative. Continue Lomotil as needed for diarrhea (5) Hypokalemia: Secondary to diarrhea-resolved Continue supplementation -follow BMP (6) Weakness: secondary to poor nutritional intake, chemotherapy and underlying metastatic cancer PT/OT evaluations were performed-OT recommends home with home health or family, PT recommends inpatient rehab Appreciate CM assistance (7) Port-A-Cath in place: Noted (8) Essential hypertension: Blood pressures low normal - stopped HCTZ, losartan (9) Glaucoma: Continue outpatient timolol and bimatoprost drops (10) Dyslipidemia: Continue to hold lovastatin given noncritical medication in setting of nausea and vomiting. (11) Diabetes mellitus: Continue holding home dose of glipizide in light of acute illness. Current hyperglycemia secondary to steroid use. SS, lantus to cover steroid induced hyperglycemia. Glycemic management as per pharmacy (12) Hypomagnesemia: replaced and normalized follow (13) Hypophosphatemia: Monitor Q2D. Replace as necessary. (14) Antineoplastic chemotherapy induced pancytopenia: Resolved (15) Oral candidiasis: Thick exudate on tongue-now resolved Started on 02/22 clotrimazole trouches-continue for 14-day course (16) Memory loss: Continue holding home donepezil and memantine as unclear if these were contributing towards nausea. -contributing to poor po intake (17) Splenic infarct: Likely local hypercoagulable effect from pancreatic cancer. However discussed with Dr. Scruggs and recommended full anticoagulation for this with Lovenox. -continue Lovenox 1 mg/kg every 12 hours (18) Elevated LFTs: Unclear cause of acute rise since no new medications started and nausea improved. Worsening today, nonobstructive pattern, no abd pain CT abd/pel without any acute findings to suggest etiology COuld be from starvation or hepatic congestion given pleural effusions and ascites? Will continue to trend. (19) DVT prophylaxis: Lovenox 1mg/kg Q12H (20) Discharge planning issues: PT, OT evaluations completed Disposition-remain hospitalized given continued electrolyte abnormalities and poor p.o. intake Palliative Care involved Subjective Pt still has no desire to eat anything. SHe is drinking minimally. Daughter and at bedside say they have tried to coax her to eat many times and she will not. She denies nausea. Daughter reports she is more confused since being in the hospital. She has only had 2 small BMs today and says her diarrhea is better but again, minimal po intake. No abd pain. No chest pain or SOB. Review of Systems Review of Systems: All systems reviewed & are unremarkable except as noted in HPI & below Physical Exam Constitutional: + thin (lying in bed); no acute distress Eyes: + anicteric sclerae ENMT: Ears: no hearing impairment and no external ear abnormality Mouth: no oral mucosal abnormality (thrush resolved) Neck: trachea midline, no thyromegaly Respiratory: normal respiratory effort; no respiratory distress Auscultation: + diminished lung sounds (at bases bilat); no crackles, no rhonchi and no wheezes Cardiovascular: RRR, no murmur, no edema Chest (Breasts): Chest: normal inspection of chest Gastrointestinal (Abdomen): normal bowel sounds, soft, nontender, no hep atosplenomegaly Musculoskeletal: Extremities: extremities normal to inspection; no cyanosis and no clubbing Skin: no rashes, warm and dry Neurologic: moves all extremities and awake; no focal motor deficits Psychiatric: Orientation: alert, oriented to person and cooperative; + not oriented to place (says [facility], town is "[place]") and + not oriented to time (says 1943, month is Nov) Lymphatic: no lymphedema Results & Data Vital Signs (Past 12 Hours) Vital Signs Temp Pulse Resp BP Pulse Ox 02/24/19 12:04 36.8 C 73 18 119/76 98 02/24/19 07:04 36.5 C 67 18 112/74 98 Laboratory Results 02/24/19 02/24/19 02/24/19 Range/Units 16:07 11:40 07:27 Sodium (136-145) mmol/L Potassium (3.5-5.1) mmol/L Chloride (98-107) mmol/L Carbon Dioxide (21-32) mmol/L Anion Gap (3-11) BUN (7-18) mg/dl Creatinine (0.6-1.2) mg/dl Est Cr Clr Drug Dosing ml/min Est GFR ( Amer) Est GFR (Non-Af Amer) BUN/Creatinine Ratio (10-20) Glucose (70-99) mg/dl POC Glucose 137 H 140 H 101 H (70-99) Calcium (8.5-10.1) mg/dl Total Bilirubin (0.2-1) mg/dl AST (15-37) U/L ALT (12-78) U/L Alkaline Phosphatase (45-117) U/L Total Protein (6.4-8.2) gm/dl Albumin (3.4-5.0) gm/dl Globulin (2.5-4.0) gm/dl Albumin/Globulin Ratio (0.9-2) 02/24/19 02/23/19 Range/Units 07:12 20:07 Sodium 139 (136-145) mmol/L Potassium 3.6 (3.5-5.1) mmol/L Chloride 111 H (98-107) mmol/L Carbon Dioxide 22 (21-32) mmol/L Anion Gap 7.0 (3-11) BUN 13 (7-18) mg/dl Creatinine 1.13 (0.6-1.2) mg/dl Est Cr Clr Drug Dosing 36.0 ml/min Est GFR ( Amer) 54.3 Est GFR (Non-Af Amer) 46.8 BUN/Creatinine Ratio 11.2 (10-20) Glucose 89 (70-99) mg/dl POC Glucose 105 H (70-99) Calcium 7.7 L (8.5-10.1) mg/dl Total Bilirubin 0.5 (0.2-1) mg/dl AST 241 H (15-37) U/L ALT 192 H (12-78) U/L Alkaline Phosphatase 177 H (45-117) U/L Total Protein 4.1 L (6.4-8.2) gm/dl Albumin 1.7 L (3.4-5.0) gm/dl Globulin 2.4 L (2.5-4.0) gm/dl Albumin/Globulin Ratio 0.7 L (0.9-2) Diagnostic Findings IMPRESSION: 1. Interval development of small bilateral pleural effusions with associated compressive basilar atelectatic change 2. Persistent pancreatic mass with secondary occlusion versus severe stenosis of the splenic vein 3. Abdominal carcinomatosis 4. Slight increase in the low to moderate volume ascites 5. No evidence of bowel obstruction 6. Nonobstructing 2 mm right renal calculus. 1 cm right renal angiomyolipoma. Bilateral renal cysts. 7. Redemonstration of a splenic infarct PG Care Time/CCT Total # of Minutes Spent Total Time Spent with Patient: Total time spent is greater than 50% in coordina tion of care (as documented) at patient's floor/unit and/or counseling patient: (1) Diabetes mellitus Diabetes mellitus complication status: with hyperglycemia Diabetes mellitus alf insulin use: without alf use Diabetes mellitus type: type 2 Qualified Code(s): E11.65 - Type 2 diabetes mellitus with hyperglycemia (2) Diarrhea Diarrhea type: unspecified type Qualified Code(s): R19.7 - Diarrhea, unspecified
--- NOTE | 2019-02-24 14:26 | Pharmacy Report ---
Pharmacy Glycemic Short Note 2 - Date of Service February 24, 2019 - Glycemic Short BSG Results (Last 24 hours): 02/23/19 02/23/19 02/24/19 16:31 20:07 07:12 Glucose 89 POC Glucose 133 H 105 H 02/24/19 02/24/19 07:27 11:40 Glucose POC Glucose 101 H 140 H OUTPATIENT ANTIDIABETIC REGIMEN: * metformin 500 mg BID, glipizide 10 mg qAM * A1c = 8.8% ASSESSMENT: 02/24: * Patient received total of 32 units of insulin yesterday, of which 15 were basal insulin. Dextrose containing fluids dc'ed yesterday * Fasting this am lower at 89 mg/dL - AM Lantus held until lunch / cut in half - gave 8 units only * Steroids now dc'ed after lunch, did loosen CF/CR with dinner. PLAN FOR INPATIENT GLYCEMIC CONTROL: * Basal insulin - decrease * 8 units with lunch / hold further basal since steroids dc'ed * Bolus insulin - loosen * NovoLog per scale ACHS or Q6hrs while NPO * Goal Range: Low 110 mg/dL - High 140 mg/dL * Correction Factor: 35 mg/dL/unit * Nutritional / Prandial insulin per carb ratio of 1 unit per 12 grams CHO consumed
[2019-02-24] MEDS ORDERED: IOVERSOL 100ml IV PRN (14:50)
--- NOTE | 2019-02-24 15:07 | CT Scan Report ---
CT abd pelvis IV con only CLINICAL HISTORY: pancreatic Ca, persistent nausea, elevated LFTs COMPARISON STUDY: 02/18/2019 TECHNIQUE: Patient was scanned in a dynamic helical fashion during intravenous administration of 93 c c of Optiray 320 A dose lowering technique was utilized adhering to the principles of ALARA. CT DOSE: 415.17 mGy.cm FINDINGS: Lower chest: Since the prior study, the patient has developed small bilateral pleural effusions with lower lobe compressive atelectatic change Liver: The contrast-enhanced liver is normal in size, contour, and attenuation. There is no intrahepa tic biliary ductal dilatation. The hepatic veins and portal veins are patent. Gallbladder: Surgically absent Spleen: There is a segmental hypodensity involving the spleen, consistent with a splenic infarct. Thi s was present on the preceding study. Pancreas: There is a somewhat ill-defined mass at the pancreatic body tail junction measuring 3.6 cm in diameter. There is secondary occlusion versus severe stenosis of the splenic vein Adrenal glands: Unremarkable. Kidneys: There is a 1 cm right renal angiomyolipoma. In addition there are multiple bilateral renal c ysts. There is no hydronephrosis. There is a nonobstructing 2 mm right renal calculus Bowel: There are no transition zones to indicate bowel obstruction. There is mild small bowel wall th ickening. Peritoneum: There is anterior peritoneal and omental nodularity consistent with abdominal carcinomato sis. Additional peritoneal nodules are also evident. There is a slight interval increase in the low t o moderate volume ascites. Vasculature: The abdominal aorta is normal in course and caliber. Adenopathy: None. Pelvic viscera: Post hysterectomy changes are evident. Skeletal structures: No destructive osseous lesions are seen. IMPRESSION: 1. Interval development of small bilateral pleural effusions with associated compressive basilar atel ectatic change 2. Persistent pancreatic mass with secondary occlusion versus severe stenosis of the splenic vein 3. Abdominal carcinomatosis 4. Slight increase in the low to moderate volume ascites 5. No evidence of bowel obstruction 6. Nonobstructing 2 mm right renal calculus. 1 cm right renal angiomyolipoma. Bilateral renal cysts. 7. Redemonstration of a splenic infarct Electronically signed by: Delmar Mello M.D. 02/24/2019 3:06 PM
[2019-02-24] MEDS: BIMATOPROST 0.01% OP SOLN 2.5 ML BTL OP SCH (20:33)
[2019-02-24] MEDS: MIRTAZAPINE SOLTAB 15 MG PO SCH (20:35)
[2019-02-25] MEDS: CLOTRIMAZOLE 10 MG TROCHE BUCCAL SCH ×6 (00:06→22:38)
[2019-02-25] MEDS: HEPARIN 100 UNIT/ML 5ML FLUSH IV PRN ×2 (00:31→21:11)
[2019-02-25] MEDS: ENOXAPARIN INJ 60 MG/0.6 ML SYR SQ SCH ×2 (04:34→16:29)
[2019-02-25 08:06] LABS: Albumin Globulin Ratio 0.7 (0.9-2); Albumin Level 1.7 gm/dl (3.4-5.0); BUN Creatinine Ratio 12.3 (10-20); Bilirubin,Total 0.5 mg/dl (0.2-1); Calcium 7.7 mg/dl (8.5-10.1); Creatinine Clr Calc Pharmacy 35.7 ml/min; Est GFR (African American) 53.7; Est GFR (Non-African American) 46.3; Globulin 2.4 gm/dl (2.5-4.0); Magnesium 1.5 mg/dl (1.8-2.4); Total Protein 4.1 gm/dl (6.4-8.2)
[2019-02-25] MEDS: TIMOLOL MALEATE 0.5% OP SOLN 5 ML BTL OP SCH (08:14)
[2019-02-25] MEDS: HYDROCORTISONE 1% CRM 30 GM TUBE EXT SCH ×2 (08:15→20:36)
[2019-02-25] MEDS: INSULIN ASPART 100 UNITS/ML 3 ML PEN SC SCH ×4 (08:15→20:38)
[2019-02-25] MEDS: ONDANSETRON HCL 8 MG in DEXTROSE 5% 50 ML IV SCH ×3 (08:22→20:52)
--- NOTE | 2019-02-25 09:04 | Palliative Care Progress Note ---
Date of Service February 25, 2019 Assessment & Plan (1) Goals of care, counseling/discussion: -78 year old female patient with pancreatic cancer. Here initially with intractable nausea and vomiting s/p chemo a few weeks ago. Patient's nausea/vomiting subsided and blood counts improved. Patient unfortunately continues to have severe food aversion and has barely been eating despite having no nausea. Patient had a CT abd/pelvis that showed some ascites but no disease progression of the cancer. -Met with patient this morning in room 276. She is awake and alert. Oriented to person and that she is in hospital. Really couldn't elaborate on her medical problems. I did talk with her about trying to increase her PO intake-- she said she would try to eat a good lunch, which she did do. -Reglan was discontinued-- per report, patient is more alert now. Decadron also discontinued. -Returned to room when patient's daughter, Darleen, was there. She has concerns about her mom's health condition-- weakness, worsening confusion and underlying dementia, poor PO intake, overall decline. Darleen stated the patient will not be able to come straight home from hospital and they are looking into SNF for rehab ([facility]). Darleen states that the whole family is in agreement that patient will likely not undergo any further chemo, as it made her so ill. Their main focus is on comfort. -WE talked about hospice care in the future: either at home or in a facility. Questions answered. -Plan will be for patient to go to SNF for rehab, and use that time to decide whether or not she will come home or need to stay in SNF. If she continues to decline, family may consider hospice. -We talked about code status. Darleen agrees that patient is currently not able to make that decision. She will discuss it with her father/patient's . -Palliative care will stop in tomorrow, hopefully while patient's is present, to discuss further. Darleen states her father should be in around 1000 tomorrow 02/26. (2) Pancreatic adenocarcinoma: (3) Weakness: (4) Severe protein-calorie malnutrition: (5) Nausea & vomiting: (6) Memory loss: Subjective -Patient continue to have severe food aversion. -She is no longer nauseated or vomiting. Review of Systems Review of Systems: Does c/o weakness and no appetite. Has no SOB, nausea, vomiting, or pain. Physical Exam Constitutional: + frail appearing; no acute distress ENMT: external ear and nose normal, oropharynx normal Respiratory: normal respiratory effort; no labored breathing Cardiovascular: Rate/Rhythm: regular rate and regular rhythm Extremities: no edema Gastrointestinal (Abdomen): Inspection/Auscultation: normal bowel sounds Percussion/Palpation: abdomen soft; abdomen nontender Neurologic: moves all extremities, awake and + confused Psychiatric: Orientation: alert, oriented to person and oriented to place; + not oriented to time Insight: + poor insight Results & Data Vital Signs (Past 12 Hours) Vital Signs Temp Pulse Resp BP Pulse Ox 02/25/19 07:50 36.6 C 87 18 114/71 100 02/25/19 04:26 36.3 C L 69 18 110/69 97 02/24/19 23:51 36.7 C 71 20 108/70 97 Time Spent Midlevel 35 minutes with >50% of the time spent at bedside with patient and family discussing condition and GOC.
[2019-02-25] MEDS: POTASSIUM CHLORIDE / WTR 20 MEQ/100 ML PLCT IV SCH ×2 (10:22→12:08)
[2019-02-25] MEDS: MAGNESIUM SULFATE / D5W 1 GM/100 ML BAG IV SCH ×2 (10:23→11:24)
--- NOTE | 2019-02-25 12:29 | Pharmacy Report ---
Pharmacy Glycemic Short Note 2 - Date of Service February 25, 2019 - Glycemic Short BSG Results (Last 24 hours): 02/24/19 02/24/19 02/25/19 16:07 20:11 07:14 Glucose 82 POC Glucose 137 H 97 02/25/19 02/25/19 07:31 11:53 Glucose POC Glucose 75 101 H OUTPATIENT ANTIDIABETIC REGIMEN: * metformin 500 mg BID, glipizide 10 mg qAM * A1c = 8.8% ASSESSMENT: 02/25: * Patient received only 8 units of insulin yesterday (all basal). She was refusing to eat solid foods. * Fasting BSG of 75 mg/dL today is below goal. I will hold basal insulin at this time and assess further need on 02/26. 02/24: * Patient received total of 32 units of insulin yesterday, of which 15 were basal insulin. Dextrose containing fluids dc'ed yesterday * Fasting this am lower at 89 mg/dL - AM Lantus held until lunch / cut in half - gave 8 units only * Steroids now dc'ed after lunch, did loosen CF/CR with dinner. PLAN FOR INPATIENT GLYCEMIC CONTROL: * Basal insulin * Hold * Bolus insulin - no change * NovoLog per scale ACHS or Q6hrs while NPO * Goal Range: Low 110 mg/dL - High 140 mg/dL * Correction Factor: 35 mg/dL/unit * Nutritional / Prandial insulin per carb ratio of 1 unit per 12 grams CHO consumed PLAN FOR DISCHARGE: * A1c = 8.8% (02/04/19) * If patient continues to have poor appetite, recommend discontinuation of glipizide to avoid risk of hypoglycemia. * Difficult to determine discharge regimen at this time per patient requiring no insulin.
--- NOTE | 2019-02-25 13:10 | Hospitalist Progress Note ---
Date of Service February 25, 2019 Assessment & Plan (1) Decreased appetite: Lack of appetite at this stage is likely related to underlying cancer and gastric ileus. Finally with some improvement in appetite-eating today after 14 days no food -had trial of dexamethasone x 6 days with regards to appetite--> didn't help so dcd dexamethasone Added mirtazapine at night (preferred over Megace as discussed with Dr. Scruggs)--> will continue this Stopped IV fluids as this may be suppressing her appetite. -dcd phenergan as may be worsening her mentation-now improved mentation off phenergan -could add Marinol if needed -continue zofran prn -repeat CT Abd/pel 02/24 with similar findings as before except with increasing ascites and pleural effusions likely from hypoalbuminemia -continue to follow daily labs and replace lytes (2) Severe protein-calorie malnutrition: Secondary to nausea as above Without any significant reversible etiology known this would not be advisable. No significant mass-effect from pancreatic cancer that would suggest her appetite would benefit from ongoing chemotherapy. Further family meetings likely needed in the coming days to determine goals of care if her appetite remains negligible. (3) Chemotherapy induced nausea and vomiting: As above CT head negative for metastatic disease. CT A/P without obstruction or much progression of CA Appetite suppression likely secondary to dementia with metastatic pancreatic ca. - She is now taking some p.o. as above - Continue to hold donepezil, lovastatin, memantine and montelukast at this time -mirtazapine as above (4) Diarrhea: Improved/resolved, secondary pancreatic ca. with mets and chemotherapy C. diff negative. Stool culture negative. Continue Lomotil as needed for diarrhea (5) Hypokalemia: Secondary to poor po intake Continue supplementation with IV KCl -follow BMP (6) Weakness: secondary to poor nutritional intake, chemotherapy and underlying metastatic cancer PT/OT evaluations were performed-OT recommends home with home health or family, PT recommends inpatient rehab Appreciate CM assistance (7) Port-A-Cath in place: Noted (8) Essential hypertension: Blood pressures low normal - stopped HCTZ, losartan (9) Glaucoma: Continue outpatient timolol and bimatoprost drops (10) Dyslipidemia: Continue to hold lovastatin given noncritical medication in setting of nausea and vomiting. (11) Diabetes mellitus: Continue holding home dose of glipizide in light of acute illness. Current hyperglycemia secondary to steroid use. SS, lantus to cover steroid induced hyperglycemia. Glycemic management as per pharmacy (12) Hypomagnesemia: replace today follow (13) Hypophosphatemia: Monitor Q2D. Replace as necessary. (14) Antineoplastic chemotherapy induced pancytopenia: Resolved (15) Oral candidiasis: Thick exudate on tongue-now resolved Started on 02/22 clotrimazole trouches-continue for 14-day course (16) Memory loss: Continue holding home donepezil and memantine as unclear if these were contributing towards nausea. -contributing to poor po intake (17) Splenic infarct: Likely local hypercoagulable effect from pancreatic cancer. However discussed with Dr. Scruggs and recommended full anticoagulation for this with Lovenox. -continue Lovenox 1 mg/kg every 12 hours (18) Elevated LFTs: Unclear cause of acute rise since no new medications started and nausea improved. Now improving, nonobstructive pattern, no abd pain CT abd/pel without any acute findings to suggest etiology COuld be from starvation or hepatic congestion given pleural effusions and ascites? Will continue to trend. (19) DVT prophylaxis: Lovenox 1mg/kg Q12H (20) Discharge planning issues: PT, OT evaluations completed Disposition-remain hospitalized given continued electrolyte abnormalities and poor p.o. intake If po intake continues to improve and lyte abnormalities improve, could dc to SNF in the next 1-2 days Palliative Care involved Subjective Pt ate for the first time today in weeks. SHe ate a small amount of a variety of foods. Her was pleased. She seems brighter today and less confused. No Chest pain, no SOB, no headache. Discussed going to rehab and she is agreeable Review of Systems Review of Systems: All systems reviewed & are unremarkable except as noted in HPI & below Physical Exam Constitutional: WD/WN, vitals as above + thin (lying in bed); no acute distress Eyes: + anicteric sclerae ENMT: Ears: no hearing impairment and no external ear abnormality Mouth: no oral mucosal abnormality (thrush resolved) Neck: trachea midline, no thyromegaly Respiratory: normal respiratory effort, lungs clear to auscultation normal respiratory effort; no respiratory distress Auscultation: + diminished lung sounds (at bases bilat); no crackles, no rhonchi and no wheezes Cardiovascular: RRR, no murmur, no edema Chest (Breasts): Chest: normal inspection of chest Gastrointestinal (Abdomen): normal bowel sounds, soft, nontender, no hepatosplenomegaly Musculoskeletal: Extremities: extremities normal to inspection; no cyanosis and no clubbing Skin: no rashes, warm and dry Neurologic: moves all extremities and awake; no focal motor deficits Psychiatric: Orientation: alert, oriented to person, oriented to place ("I'm in the hospital") and cooperative; + not oriented to time Eye Contact: good eye contact Lymphatic: no lymphedema Results & Data Vital Signs (Past 12 Hours) Vital Signs Temp Pulse Resp BP Pulse Ox 02/25/19 11:04 36.3 C L 68 18 117/67 95 02/25/19 07:50 36.6 C 87 18 114/71 100 02/25/19 04:26 36.3 C L 69 18 110/69 97 Laboratory Results 02/26/19 02/26/19 02/25/19 Range/Units 06:32 06:32 20:09 WBC 9.58 (4.8-10.8) K/uL RBC 3.09 L (4.2-5.4) M/uL Hgb 9.6 L (12.0-16.0) g/dL Hct 28.9 L (37-47) % MCV 93.5 (80-100) fL MCH 31.1 (25-34) pg MCHC 33.2 (32-36) g/dL RDW Std Deviation 47.6 H (36.4-46.3) fL RDW Coeff of Valdo 14.3 (11.5-14.5) % Plt Count 315 (130-400) K/uL MPV 9.8 (7.4-10.4) fL Absolute Nucleated RBC 0.14 H (0-0) K/uL Nucleated RBC % (auto) 1.5 % Sodium 139 (136-145) mmol/L Potassium 3.4 L (3.5-5.1) mmol/L Chloride 112 H (98-107) mmol/L Carbon Dioxide 20 L (21-32) mmol/L Anion Gap 7.0 (3-11) BUN 13 (7-18) mg/dl Creatinine 1.11 (0.6-1.2) mg/dl Est Cr Clr Drug Dosing 36.7 ml/min Est GFR ( Amer) 55.5 Est GFR (Non-Af Amer) 47.9 BUN/Creatinine Ratio 11.6 (10-20) Glucose 135 H (70-99) mg/dl POC Glucose 150 H (70-99) Calcium 7.4 L (8.5-10.1) mg/dl Phosphorus (2.5-4.9) mg/dl Magnesium (1.8-2.4) mg/dl Total Bilirubin Pending (0.2-1) mg/dl AST 44 H (15-37) U/L ALT 88 H (12-78) U/L Alkaline Phosphatase Pending (45-117) U/L Total Protein Pending (6.4-8.2) gm/dl Albumin 1.7 L (3.4-5.0) gm/dl Globulin Pending (2.5-4.0) gm/dl Albumin/Globulin Ratio Pending (0.9-2) 02/25/19 02/25/19 02/25/19 Range/Units 16:41 11:53 07:31 WBC (4.8-10.8) K/uL RBC (4.2-5.4) M/uL Hgb (12.0-16.0) g/dL Hct (37-47) % MCV (80-100) fL MCH (25-34) pg MCHC (32-36) g/dL RDW Std Deviation (36.4-46.3) fL RDW Coeff of Valdo (11.5-14.5) % Plt Count (130-400) K/uL MPV (7.4-10.4) fL Absolute Nucleated RBC (0-0) K/uL Nucleated RBC % (auto) % Sodium (136-145) mmol/L Potassium (3.5-5.1) mmol/L Chloride (98-107) mmol/L Carbon Dioxide (21-32) mmol/L Anion Gap (3-11) BUN (7-18) mg/dl Creatinine (0.6-1.2) mg/dl Est Cr Clr Drug Dosing ml/min Est GFR ( Amer) Est GFR (Non-Af Amer) BUN/Creatinine Ratio (10-20) Glucose (70-99) mg/dl POC Glucose 151 H 101 H 75 (70-99) Calcium (8.5-10.1) mg/dl Phosphorus (2.5-4.9) mg/dl Magnesium (1.8-2.4) mg/dl Total Bilirubin (0.2-1) mg/dl AST (15-37) U/L ALT (12-78) U/L Alkaline Phosphatase (45-117) U/L Total Protein (6.4-8.2) gm/dl Albumin (3.4-5.0) gm/dl Globulin (2.5-4.0) gm/dl Albumin/Globulin Ratio (0.9-2) 02/25/19 Range/Units 07:14 WBC (4.8-10.8) K/uL RBC (4.2-5.4) M/uL Hgb (12.0-16.0) g/dL Hct (37-47) % MCV (80-100) fL MCH (25-34) pg MCHC (32-36) g/dL RDW Std Deviation (36.4-46.3) fL RDW Coeff of Valdo (11.5-14.5) % Plt Count (130-400) K/uL MPV (7.4-10.4) fL Absolute Nucleated RBC (0-0) K/uL Nucleated RBC % (auto) % Sodium 139 (136-145) mmol/L Potassium 3.0 L D (3.5-5.1) mmol/L Chloride 111 H (98-107) mmol/L Carbon Dioxide 21 (21-32) mmol/L Anion Gap 7.0 (3-11) BUN 14 (7-18) mg/dl Creatinine 1.14 (0.6-1.2) mg/dl Est Cr Clr Drug Dosing 35.7 ml/min Est GFR ( Amer) 53.7 Est GFR (Non-Af Amer) 46.3 BUN/Creatinine Ratio 12.3 (10-20) Glucose 82 (70-99) mg/dl POC Glucose (70-99) Calcium 7.7 L (8.5-10.1) mg/dl Phosphorus 3.0 (2.5-4.9) mg/dl Magnesium 1.5 L (1.8-2.4) mg/dl Total Bilirubin 0.5 (0.2-1) mg/dl AST 85 H (15-37) U/L ALT 126 H (12-78) U/L Alkaline Phosphatase 168 H (45-117) U/L Total Protein 4.1 L (6.4-8.2) gm/dl Albumin 1.7 L (3.4-5.0) gm/dl Globulin 2.4 L (2.5-4.0) gm/dl Albumin/Globulin Ratio 0.7 L (0.9-2) PG Care Time/CCT Total # of Minutes Spent Total Time Spent with Patient: Total time spent is greater than 50% in coordination of care (as documented) at patient's floor/unit and/or counseling patient: (1) Diabetes mellitus Diabetes mellitus complication status: with hyperglycemia Diabetes mellitus alf insulin use: without press tender long goods use Diabetes mellitus type: type 2 Qualified Code(s): E11.65 - Type 2 diabetes mellitus with hyperglycemia (2) Diarrhea Diarrhea type: unspecified type Qualified Code(s): R19.7 - Diarrhea, unspecified
[2019-02-25] MEDS: MIRTAZAPINE SOLTAB 15 MG PO SCH (20:37)
[2019-02-25] MEDS: BIMATOPROST 0.01% OP SOLN 2.5 ML BTL OP SCH (20:37)
[2019-02-26] MEDS: ENOXAPARIN INJ 60 MG/0.6 ML SYR SQ SCH (05:14)
[2019-02-26] MEDS: CLOTRIMAZOLE 10 MG TROCHE BUCCAL SCH ×2 (05:17→10:34)
[2019-02-26 06:46] LABS: Hematocrit (blood only) 28.9 % (37-47); Hemoglobin 9.6 g/dL (12.0-16.0); Mean Corpuscular Hemoglobin 31.1 pg (25-34); Mean Corpuscular Hgb Conc 33.2 g/dL (32-36); Mean Corpuscular Volume 93.5 fL (80-100); Mean Platelet Volume 9.8 fL (7.4-10.4); Nucleated RBC # (auto) 0.14 K/uL (0-0); Nucleated RBC % (auto) 1.5 %; Platelet Count 315 K/uL (130-400); RDW Coefficient of Variation 14.3 % (11.5-14.5); RDW Standard Deviation 47.6 fL (36.4-46.3); Red Blood Count 3.09 M/uL (4.2-5.4); White Blood Count 9.58 K/uL (4.8-10.8)
[2019-02-26 07:27] LABS: Albumin Level 1.7 gm/dl (3.4-5.0); BUN Creatinine Ratio 11.6 (10-20); Calcium 7.4 mg/dl (8.5-10.1); Creatinine Clr Calc Pharmacy 36.7 ml/min; Est GFR (African American) 55.5; Est GFR (Non-African American) 47.9; Potassium 3.4 mmol/L (3.5-5.1)
[2019-02-26 07:29] LABS: Albumin Globulin Ratio 0.8 (0.9-2); Bilirubin,Total 0.5 mg/dl (0.2-1); Globulin 2.2 gm/dl (2.5-4.0); Total Protein 3.9 gm/dl (6.4-8.2)
[2019-02-26] MEDS: POTASSIUM CHLORIDE / WTR 10 MEQ/100 ML PLCT IV SCH ×2 (07:55→08:47)
[2019-02-26] MEDS: TIMOLOL MALEATE 0.5% OP SOLN 5 ML BTL OP SCH (08:39)
[2019-02-26] MEDS: HYDROCORTISONE 1% CRM 30 GM TUBE EXT SCH (08:39)
[2019-02-26] MEDS: ONDANSETRON HCL 8 MG in DEXTROSE 5% 50 ML IV SCH (08:43)
[2019-02-26] MEDS: INSULIN ASPART 100 UNITS/ML 3 ML PEN SC SCH ×2 (09:01→12:29)
[2019-02-26] MEDS: HEPARIN 100 UNIT/ML 5ML FLUSH IV PRN (09:51)
[2019-02-26] MEDS: DIPHENOXYLATE/ATROPINE 2.5/0.025MG TAB PO PRN (10:34)
--- NOTE | 2019-02-26 14:03 | Discharge Summary ---
Date of Service February 26, 2019 Admission HPI Per Admitting Provider 78-year-old female with history of metastatic pancreatic adenocarcinoma stage IV, hypertension, hyperlipidemia, DM 2, Auburn's disease presents with nausea/vomiting, diarrhea and weakness status post second round of chemo 4 days ago. Patient was recently diagnosed with pancreatic cancer and started on chemotherapy (gemcitabine and Abraxane). After her first round of chemo she became very weak and bedbound. After his second round about 4 days ago she developed nausea/vomiting multiple times times a day and diarrhea multiple times a day as well. She denies any hematochezia or melena. She has been unable to keep anything down. Occasionally she has abdominal pain but none right now. She also developed a pruritic rash on her back and chest after her second chemo. She denies any fever, chills, lightheadedness, headache, chest pain, shortness of breath, dysuria, increased urinary frequency, hematuria. She sees Dr. Scruggs Surgical history: Hysterectomy and cholecystectomy Principal Diagnosis Intractable nausea/vomiting secondary to chemotherapy, hypokalemia Discharge Exam Constitutional WD/WN, vitals as above + thin (lying in bed); no acute distress Eyes + anicteric sclerae ENMT Ears: no hearing impairment and no external ear abnormality Mouth: no oral mucosal abnormality (thrush resolved) Neck trachea midline, no thyromegaly Respiratory normal respiratory effort, lungs clear to auscultation normal respiratory effort; no respiratory distress Auscultation: + diminished lung sounds (at bases bilat); no crackles, no rhonchi and no wheezes Cardiovascular RRR, no murmur, no edema Chest (Breasts) Chest: normal inspection of chest Gastrointestinal (Abdomen) normal bowel sounds, soft, nontender, no hepatosplenomegaly Musculoskeletal Extremities: extremities normal to inspection; no cyanosis and no clubbing Skin no rashes, warm and dry Neurologic moves all extremities and awake; no focal motor deficits Psychiatric Orientation: alert, oriented to person, oriented to place and cooperative Eye Contact: good eye contact Lymphatic no lymphedema Discharge Data Allergies Allergy/AdvReac Type Severity Reaction Status Date / Time azithromycin AdvReac Mild NAUSEA/VOMI Verified 02/05/19 07:04 TTING Sulfa (Sulfonamide AdvReac Mild Nausea/Vomi Verified 02/05/19 07:04 Antibiotics) tting Consultations 02/16/19 19:28 ED Decision to Admit Stat 02/16/19 22:56 Consult Case Management - Discharge Planning Routine Consult Oncology Routine 02/19/19 11:19 Consult Palliative Care Routine Ordered Studies 02/18/19 14:47 CT abd pelvis IV con only Urgent 02/19/19 11:12 CT head/brain wo/w con Routine 02/24/19 12:49 CT abd pelvis IV con only Routine Echocardiogram Abdominal x-ray Chest x-ray Hospital Course (1) Decreased appetite: This is related to underlying cancer and gastric ileus. Finally improving Finally with some improvement in appetite-eating now after 14 days no food -had trial of dexamethasone x 6 days with regards to appetite--> didn't help so dcd dexamethasone Added mirtazapine at night (preferred over Megace as discussed with Dr. Ruddy guzman)--> will continue this at 15 mg p.o. nightly Treated initially with IV fluids . -dcd phenergan as may be worsening her mentation-now improved mentation off phenergan -could add Marinol if needed in the future -continue zofran p.o. prn -repeat CT Abd/pel 02/24 with similar findings as before except with increasing ascites and pleural effusions likely from hypoalbuminemia -continue to follow CMP and replace electrolytes as needed as an outpatient (2) Severe protein-calorie malnutrition: Secondary to nausea as above Without any significant reversible etiology known this would not be advisable. No significant mass-effect from pancreatic cancer that would suggest her appetite would benefit from ongoing chemotherapy. (3) Chemotherapy induced nausea and vomiting: As above CT head negative for metastatic disease. CT A/P without obstruction or much progression of CA Appetite suppression likely secondary to dementia with metastatic pancreatic ca. - She is now taking some p.o. as above -mirtazapine as above -Discontinued some of her medications that were deemed not necessary in an effort to reduce pill burden -Family discussion with palliative care indicated that she will not likely pursue any further chemotherapy as she did not handle it well -Should follow-up with oncology after discharge (4) Diarrhea: Improved/resolved, secondary pancreatic ca. with mets and chemotherapy C. diff negative. Stool culture negative. Continue Lomotil as needed for diarrhea (5) Hypokalemia: Secondary to poor po intake Received supplementation with IV KCl Follow-up CMP in 2 to 3 days (6) Weakness: secondary to poor nutritional intake, chemotherapy and underlying metastatic cancer PT/OT evaluations were performed-OT recommends home with home health or family, PT recommends inpatient rehab Appreciate CM assistance (7) Port-A-Cath in place: Noted (8) Essential hypertension: Blood pressures low normal - stopped HCTZ, losartan (9) Glaucoma: Continue outpatient timolol and bimatoprost drops (10) Dyslipidemia: -Okay to restart lovastatin was held during hospitalization (11) Diabetes mellitus: Discontinued home dose of glipizide and metformin She was covered with insulin while here and required very minimal doses, but does not need to be on occasion moving forward (12) Hypomagnesemia: Replaced and resolved (13) Hypophosphatemia: Replaced and resolved (14) Antineoplastic chemotherapy induced pancytopenia: Resolved (15) Oral candidiasis: Thick exudate on tongue-now resolved Started on 02/22 clotrimazole trouches-continue for 14-day course (16) Memory loss: Okay to restart home donepezil and memantine on discharge (17) Splenic infarct: Likely local hypercoagulable effect from pancreatic cancer. However discussed with Dr. Scruggs and recommended full anticoagulation for this with Lovenox. -continue Lovenox 1 mg/kg every 12 hours -Follow-up with oncology (18) Elevated LFTs: Unclear cause of acute rise since no new medications started and nausea improved. Now improving, nonobstructive pattern, no abd pain CT abd/pel without any acute findings to suggest etiology COuld be from starvation or hepatic congestion given pleural effusions and ascites? Will continue to trend after discharge-check CMP in 2 to 3 days (19) DVT prophylaxis: Lovenox 1mg/kg Q12H (20) Discharge planning issues: PT, OT evaluations completed Disposition-stable for discharge to care home facility Palliative Care involved Total Time Total Time Spent Total Time Spent (In Minutes): 35 minutes Total Time Includes: Examination of the Patient, Discharge Planning, Medication Reconciliation and Communication With Other Providers (Palliative care) Discharge Plan Discharge Items Patient Disposition: Transfer Half-Way Fac Reason For Visit: NEUTROPENIC, N/V/D Discharge Diagnosis: Intractable chemotherapy-induced nausea/vomiting/diarrhea, Pancreatic CA Condition on Discharge: Fair Health Concerns: You have been hospitalized for an acute medical problem. During your stay at [facility], we have made an effort to correct the problem that brought you to the hospital while keeping you as comfortable as possible. Medications were used to bring your condition under control and your discharge instructions will include directions for any medications you should take after leaving the hospital. Please make sure you see your Primary Care Provider as part of your follow up plan. Activity: As commented below Lifting: Gradually increase as tolerated Bathing: No limitations Exercise/Sports: Gradually increase as tolerated Non-emergency contact: Primary Care Provider and Oncologist Call non-emergency contact if: you have any medication questions and your symptoms worsen Follow-up/Referrals: Haseeb Mills MD [Primary Care Provider] - Tyshawn Scruggs [Family Provider] - (Please follow up within 1 week after discharge ) Diet: Regular Addtl Attending Provider Instructions: Continue Zofran as needed for nausea. Mirtazapine was added to help with appetite as well. Continue Lomotil as needed for diarrhea. She was also found to have a splenic infarct and was started on Lovenox at therapeutic doses for this. Please have her follow up with Dr. Scruggs of Heme/Oncology for her pancreatic cancer and the splenic infarct. Your diabetes medications were stopped as you do not need them and they may cause side effects in the setting of poor oral intake. Your blood pressure medication was also stopped as your blood pressures were normal without the medication for your entire hospital stay. Your Singulair and Vitamin D, as well as multivitamin were all stopped in an effort to reduce the amount of pills you are taking to help with nausea. Please check a CMP, Magnesium levels in 2-3 days and replace potassium and magnesium orally as needed. her LFTs were mildly elevated and were trending downward at the time of discharge. Pending Studies at Discharge: No Stand-Alone Forms: My [facility] Skilled Items Patient informed of condition?: Yes DNR: No Discharge Level of Care: Skilled Communicable Disease: No Discharge Prognosis: Improving Lines: None Urinary Catheter: No Medications and DC Order Prescriptions: New enoxaparin 60 mg/0.6 mL Syringe 60 mg subcut Q12H Qty: 60 RF: 0 diphenoxylate-atropine 2.5-0.025 mg Tablet 1 tab PO QID PRN (Reason: diarrhea) Qty: 30 RF: 0 mirtazapine 15 mg Tablet,Disintegrating 15 mg PO HS Qty: 30 RF: 0 clotrimazole 10 mg Steve 10 mg buccal [id number] 7 Days Qty: 35 RF: 0 Continued cyanocobalamin (vitamin B-12) 1,000 mcg tablet 1,000 mcg PO QAM RF: 0 lovastatin 10 mg tablet 10 mg PO QAM Qty: 90 RF: 0 timolol maleate 0.5 % drops, once daily 1 drops ophthalmic (eye) UD RF: 0 bimatoprost 0.03 % drops 1 % OP DAILY RF: 0 memantine 10 mg tablet 10 mg PO BID Qty: 180 RF: 3 donepezil 5 mg tablet 5 mg PO HS 90 Days Qty: 90 RF: 3 ondansetron HCl 8 mg tablet 8 mg PO Q8H RF: 0 Discontinued cholecalciferol (vitamin D3) 5,000 unit capsule 5,000 units PO QAM RF: 0 glipizide 10 mg tablet extended release 24hr 10 mg PO QAM Qty: 90 RF: 0 metformin 500 mg tablet 500 mg PO BID Qty: 360 RF: 0 montelukast 10 mg tablet 10 mg PO QAM Qty: 1 RF: 0 multivitamin [Daily Multi-Vitamin] tablet 1 tab PO QAM RF: 0 losartan-hydrochlorothiazide 100-12.5 mg tablet 1 tab PO QAM RF: 0 prochlorperazine maleate 10 mg tablet 10 mg PO QID RF: 0 potassium chloride 20 mEq tablet,ER particles/crystals 20 meq PO DAILY RF: 0 Discharge Orders: Discharge Order (Routine); Ordered 02/26/19 Ordered By: Lexie Boone Admission Data Admit Date/Time: 02/16/19 20:32 Attending Provider: Lexie Boone Admit Provider: Darleen Marr Primary Care Provider: Haseeb Mills Other Providers: Darleen Marr ; Tyshawn Scruggs ; Estela Fry ; Radha Olmedo [facility] ; CollbranMary Other Interventions: Discharge Summary Assessment (RN) Last Done: 02/26/19 13:57
--- NOTE | 2019-02-26 14:22 | Palliative Care Progress Note ---
Date of Service February 26, 2019 Assessment & Plan (1) Goals of care, counseling/discussion: -78 year old female patient with pancreatic cancer. Here initially with intractable nausea and vomiting s/p chemo a few weeks ago. Patient's nausea/vomiting subsided and blood counts improved. Patient unfortunately continues to have severe food aversion and has barely been eating despite having no nausea. Patient had a CT abd/pelvis that showed some ascites but no disease progression of the cancer.Plan is for discharge to [facility] today for rehab. -I met with the patient only initially in the room. She states she has an appetite now and it feels "good to eat" -No real nausea concerns. -Plan for her to go to SNF for rehab. Later into the discussion, her returned from lunch. -We discussed code status and a POLST in the hallway. , Leif, agreed that in the event of cardiac arrest that she would not want resuscitated if there was not a chance for meaningful recovery. Patient changed to DNR/DNI in the computer. -We discussed briefly what a POLST was and how it could be helpful at [facility]. He became overwhelmed with this conversation. I provided him with the blank original POLST and advised him to discuss with his daughter and care team at [facility]. -Plan for discharge this afternoon. -Thank you for involving the palliative care team with this patient. Please contact us with any additional concerns. (2) Pancreatic adenocarcinoma: (3) Weakness: (4) Severe protein-calorie malnutrition: (5) Nausea & vomiting: (6) Memory loss: Subjective Pt sitting up at the side of the bed, more alert and interactive than she has been. Overall, she states she feels weaker. Pt at the bedside. Review of Systems Review of Systems: Pt states her appetite is improving Has no SOB, nausea, vomiting, or pain. Physical Exam Constitutional: + ill appearing, + frail appearing and cooperative Eyes: PERRL, conjunctivae normal, anicteric sclerae ENMT: external ear and nose normal, oropharynx normal Cardiovascular: RRR, no murmur, no edema Gastrointestinal (Abdomen): normal bowel sounds, soft, nontender, no hepatosplenomegaly Skin: no rashes, warm and dry Psychiatric: Orientation: alert and oriented x 3 Insight: + limited insight Judgement: + limited judgement Results & Data Vital Signs (Past 12 Hours) Vital Signs Temp Pulse Resp BP BP Pulse Ox 02/26/19 13:57 36.2 C L 68 18 145/72 H 122/72 97 02/26/19 07:25 36.2 C L 68 18 122/72 97 PG Care Time/CCT Total # of Minutes Spent Total Time Spent with Patient: Total time spent is greater than 50% in coordination of care (as documented) at patient's floor/unit and/or counseling patient: 35 Time Spent Midlevel Total time spent 35 minutes with > 50% of that time spent assessing the patient, discussing symptom management and code status, along with a POLST form.
== END 2019-02-26 14:42 | DRG 435 ==
LOC: ED 17:09 → SUATTDRO 20:32 → 2N 20:32 → 4W 02-25 21:21

== ENCOUNTER 2019-04-15 11:01 | Inpatient (IN) ==
[2019-04-15] MEDS ORDERED: METOCLOPRAMIDE HCL INJ 5 MG/ML 2 ML VIAL IV STA (11:30)
[2019-04-15] MEDS ORDERED: SODIUM CHLORIDE 0.9% 1000ML 1,000 ML IV SCH (11:30)
[2019-04-15 11:48] LABS: Basophils # (auto) 0.01 K/uL (0-0.2); Basophils % (auto) 0.1 %; Eosinophils # (auto) 0.01 K/uL (0-0.5); Eosinophils % (auto) 0.1 %; Hematocrit (blood only) 36.7 % (37-47); Immature Granulocytes # (auto) 0.03 K/uL (0.00-0.02); Immature Granulocytes % (auto) 0.3 %; Lymphocytes # (auto) 0.63 K/uL (1.2-3.4); Lymphocytes % (auto) 5.4 %; Mean Corpuscular Hgb Conc 32.7 g/dL (32-36); Mean Corpuscular Volume 94.8 fL (80-100); Mean Platelet Volume 10.2 fL (7.4-10.4); Monocytes # (auto) 0.51 K/uL (0.11-0.59); Monocytes % (auto) 4.4 %; Neutrophils # (auto) 10.39 K/uL (1.4-6.5); Neutrophils % (auto) 89.7 %; Platelet Count 384 K/uL (130-400); RDW Coefficient of Variation 17.2 % (11.5-14.5); RDW Standard Deviation 59.8 fL (36.4-46.3); Red Blood Count 3.87 M/uL (4.2-5.4); White Blood Count 11.58 K/uL (4.8-10.8)
[2019-04-15 11:58] LABS: Albumin Level 1.9 gm/dl (3.4-5.0); BUN Creatinine Ratio 11.3 (10-20); Calcium 8.7 mg/dl (8.5-10.1); Creatinine Clr Calc Pharmacy 23.2 ml/min; Est GFR (African American) 33.6; Potassium 3.9 mmol/L (3.5-5.1)
[2019-04-15 12:00] LABS: Albumin Globulin Ratio 0.6 (0.9-2); Bilirubin,Total 0.5 mg/dl (0.2-1); Globulin 3.2 gm/dl (2.5-4.0); Total Protein 5.1 gm/dl (6.4-8.2)
[2019-04-15 12:03] LABS: Partial Thromboplastin Ratio 1.5; Partial Thromboplastin Time 41.6 Seconds (21.0-31.0); Prothrombin Time 50.1 Seconds (9.0-12.0)
[2019-04-15 12:14] LABS: INR 5.5 (0.9-1.1)
[2019-04-15] MEDS ORDERED: SODIUM CHLORIDE 0.9% 1000ML 1,000 ML IV ONE (12:34)
[2019-04-15] MEDS ORDERED: PHYTONADIONE 5 MG in SODIUM CHLORIDE 0.9% 50 ML IV ONE (12:35)
[2019-04-15] MEDS ORDERED: PANTOprazole 80 MG in DEXTROSE 5% 100 ML IV ONE (12:45)
[2019-04-15] MEDS: PANTOprazole 40 MG in DEXTROSE 5% 100 ML IV SCH ×2 (14:03→18:46)
[2019-04-15] MEDS ORDERED: SODIUM CHLORIDE 0.9% 250 ML IV PRN ×3 (15:17→16:50)
[2019-04-15] MEDS ORDERED: MAGNESIUM HYDROXIDE SUSP 30 ML UDC PO PRN (16:13)
[2019-04-15] MEDS ORDERED: ONDANSETRON INJ 2 MG/ML 2 ML VIAL IV PRN (16:13)
[2019-04-15] MEDS ORDERED: ONDANSETRON 8 MG TABLET PO PRN (16:13)
[2019-04-15] MEDS ORDERED: POLYETHYLENE (MIRALAX) 17 GM PACK PO PRN (16:13)
[2019-04-15] MEDS ORDERED: DIPHENOXYLATE/ATROPINE 2.5/0.025MG TAB PO PRN (16:13)
[2019-04-15] MEDS ORDERED: ALUMINUM/MAGNESIUM SUSP 30 ML UDC PO PRN (16:13)
[2019-04-15] MEDS ORDERED: ACETAMINOPHEN 325 MG TAB PO PRN (16:13)
[2019-04-15] MEDS ORDERED: LORazepam 0.5 MG TAB PO PRN (16:13)
--- NOTE | 2019-04-15 16:29 | History & Physical Report ---
Date of Service April 15, 2019 Assessment & Plan (1) GI bleed: Admit to med/surg VS pr unit Transfuse 2 units FFP now and hold 2 Units of blood if Hgb<8 Monitor CBC Q8 hr family wants to pursue comfort care and to be discharged to residence once when bleeding stops. DVT ppx Teds DNR/DNI Present on Admission?: Yes (2) Supratherapeutic INR: As the above-management Present on Admission?: Yes (3) Dehydration: Given 2 L of Fluid in the ER. Continue monitoring. Pt hardly eats anything. Gentle IV fluid hydration would be acceptable to her family. Comfort care Present on Admission?: Yes (4) Metastatic adenocarcinoma to pancreas: as the discussed above-comfort care Continue Mirtazapine 15 mg PO HS Present on Admission?: Yes (5) Diabetes mellitus: Comfort care. Accuchecks AC&HS with SSI per pharmacy. Would not aggressively treat pt hyperglycemia. Present on Admission?: Yes (6) Dyslipidemia: Continue Lovastatin 10 mg PO QAM Present on Admission?: Yes (7) Essential hypertension: Hold BP meds while pt is hypotensive and BP is below SBP<120 and DBP<80. Present on Admission?: Yes History of Present Illness Chief Complaint: Hematemesis Primary Care Provider: Haseeb Mills MD The patient is a 78 years old female with past medical history of metastatic pancreatic adenocarcinoma stage IV, hypertension, hyperlipidemia, diabetes mellitus type 2, Alzheimer's disease presents with hematemesis that started this morning. Patient was recently diagnosed with pancreatic cancer and started on chemotherapy Gemcitabine and Abraxane and after the first round of chemotherapy she became very weak and bedbound. Patient was recently hospitalized in February 2019 and at that point she decided to embrace palliative care and hospice rather than continue chemotherapy which was making her very nauseated and had protracted vomiting. Patient decided to be DNR/DNI she was spending her time at [facility]. I met with patient and her daughter and the daughter spoke to patient's who is also bedbound and oxygen dependent and they told me that patient would like to continue to be in hospice while in situation where her INR is supratherapeutic she would like to reverse it and if necessary to receive 1 to 2 unit of blood and to be discharged home on comfort care and hospice again. We discussed possible GI procedures and patient and her daughter declined it. They were okay with 1 to 2 units of blood and any blood products that will stop GI bleed. Labs are reviewed: WBC is 11.58, hemoglobin 12, hematocrit 36.7, platelets 384, PT 50.1, INR 5.5, APTT 41.6,. Sodium 140, potassium 3.9, chloride 109, anion gap 16, BUN 19, creatinine 1.68, GFR 29, glucose 195, lactate 1.1, calcium 8.7, AST 12, ALT 11. Decision was made to admit patient to [facility] for blood transfusion and FFP and supratherapeutic INR. Allergies Allergy/AdvReac Type Severity Reaction Status Date / Time azithromycin AdvReac Mild NAUSEA/VOMI Verified 04/15/19 12:30 TTING Sulfa (Sulfonamide AdvReac Mild Nausea/Vomi Verified 04/15/19 12:30 Antibiotics) tting Home Medications Home Medications Medication Instructions Recorded Confirmed Type cyanocobalamin (vitamin B-12) 1,000 mcg PO QAM tab 12/27/18 04/15/19 History 1,000 mcg tablet lovastatin 10 mg tablet 10 mg PO QAM #90 tab 12/27/18 04/15/19 History donepezil 5 mg tablet 5 mg PO HS 90 Days #90 tab 01/08/19 04/15/19 Rx memantine 10 mg tablet 10 mg PO BID #180 tab 01/08/19 04/15/19 Rx ondansetron HCl 8 mg PO Q8H 02/16/19 04/15/19 History diphenoxylate-atropine 1 tab PO QID PRN #30 tab 02/26/19 04/15/19 Rx enoxaparin 60 mg SUBCUT Q12H #60 syr 02/26/19 04/15/19 Rx mirtazapine 15 mg PO HS #30 tab 02/26/19 04/15/19 Rx lorazepam 0.5 mg tablet 0.5 mg PO Q4H PRN #100 tab 04/14/19 04/15/19 Rx bimatoprost 1 % OPB HS 04/15/19 04/15/19 History timolol maleate 1 drops OPB HS 04/15/19 04/15/19 History warfarin 4 mg PO DAILY 04/15/19 04/15/19 History Past Med/Surg History Medical History Alzheimer disease "BEGINING STAGES" Diabetes mellitus, type 2 Glaucoma Hyperlipidemia Hypertension Osteoarthritis Pancreatic adenocarcinoma NO SURGERY Poor historian Spinal stenosis Splenic infarct Surgical History H/O hysterectomy with unilateral oophorectomy History of cholecystectomy History of colonoscopy History of dental surgery History of tonsillectomy History of tonsillectomy and adenoidectomy History of varicose vein ligation Family History Father Family history of diabetes mellitus Other Coronary arteriosclerosis Social History Preferred Language: Mongolian Communication Ability: Effective School Community Relations Coordinator Required: No Beliefs That Will Affect Care: None marital status: Current Living Situation: Spouse current occupational status: retired Other Information That Helps Us Care for You: No Feels Safe at Home: Yes Safety Concerns: Feels Safe At This Time Smoking Status: Never smoker Do You Dip or Chew Tobacco: No ; Second Hand Exposure: No ; Tobacco Cessation Education Requested by Patient: No Hx Alcohol Use: No Hx Substance Use: No Review of Systems Review of Systems: All systems reviewed & are unremarkable except as noted in HPI & below Physical Exam Constitutional: WD/WN, vitals as above well developed, + ill appearing and + cachectic Eyes: PERRL, conjunctivae normal, anicteric sclerae ENMT: external ear and nose normal, oropharynx normal Neck: trachea midline, no thyromegaly Respiratory: normal respiratory effort, lungs clear to auscultation Cardiovascular: Rate/Rhythm: regular rate and regular rhythm Heart Sounds: normal S1 and normal S2 Vessels: dorsalis pedis pulses present Gastrointestinal (Abdomen): normal bowel sounds, soft, nontender, no hepatosplenomegaly Musculoskeletal: no cyanosis or clubbing, extremities motor strength 5/5 Skin: no rashes, warm and dry Neurologic: patellar DTR's 2+ bilat, sensation intact Lymphatic: no cervical or axillary lymphadenopathy Results & Data Vital Signs (Past 12 Hours) Vital Signs Temp Pulse Pulse Resp BP BP Pulse Ox 04/15/19 16:13 36.6 C 101 H 16 120/80 99 04/15/19 15:31 102 H 12 100 04/15/19 15:30 90 16 107/64 100 04/15/19 15:01 87 19 100 04/15/19 15:00 104 H 19 110/59 L 100 04/15/19 14:30 105 H 18 121/64 100 04/15/19 14:01 91 H 16 100 04/15/19 14:00 84 14 116/65 100 04/15/19 13:31 88 15 100 04/15/19 13:30 92 H 14 125/71 100 04/15/19 13:00 36.9 C 84 16 116/79 100 04/15/19 12:32 90 16 107/75 100 04/15/19 11:32 99 04/15/19 11:10 37.0 C 91 H 16 135/87 99 Code Status & VTE Plan Code Status DNR/DNI VTE Prophylaxis Plan VTE Prophylaxis will be ordered: Yes PG Care Time/CCT Total # of Minutes Spent Total Time Spent with Patient: Total time spent is greater than 50% in coordination of care (as documented) at patient's floor/unit and/or counseling patient: (1) Diabetes mellitus Diabetes mellitus complication status: with hyperglycemia Diabetes mellitus skilled nursing insulin use: without skilled nursing use Diabetes mellitus type: type 2 Qualified Code(s): E11.65 - Type 2 diabetes mellitus with hyperglycemia (2) GI bleed GI bleed type/associated pathology: unspecified gastrointestinal hemorrhage type Qualified Code(s): K92.2 - Gastrointestinal hemorrhage, unspecified
[2019-04-15 16:43] LABS: Basophils # (auto) 0.01 K/uL (0-0.2); Basophils % (auto) 0.1 %; Eosinophils # (auto) 0.02 K/uL (0-0.5); Eosinophils % (auto) 0.2 %; Hematocrit (blood only) 35.4 % (37-47); Hemoglobin 11.5 g/dL (12.0-16.0); Immature Granulocytes # (auto) 0.04 K/uL (0.00-0.02); Immature Granulocytes % (auto) 0.3 %; Lymphocytes # (auto) 1.04 K/uL (1.2-3.4); Lymphocytes % (auto) 9.1 %; Mean Corpuscular Hemoglobin 30.9 pg (25-34); Mean Corpuscular Hgb Conc 32.5 g/dL (32-36); Mean Corpuscular Volume 95.2 fL (80-100); Mean Platelet Volume 9.7 fL (7.4-10.4); Monocytes # (auto) 0.68 K/uL (0.11-0.59); Monocytes % (auto) 5.9 %; Neutrophils # (auto) 9.64 K/uL (1.4-6.5); Neutrophils % (auto) 84.4 %; Platelet Count 374 K/uL (130-400); RDW Coefficient of Variation 17.2 % (11.5-14.5); RDW Standard Deviation 59.7 fL (36.4-46.3); Red Blood Count 3.72 M/uL (4.2-5.4); White Blood Count 11.43 K/uL (4.8-10.8)
[2019-04-15] MEDS: SODIUM CHLORIDE 0.9% 1000ML 1,000 ML IV SCH (17:00)
--- NOTE | 2019-04-15 17:54 | Emergency Department Note ---
Entered by To Kc acting as a scribe for History of Present Illness General Chief complaint: GI Assessment Time Seen by Provider: 04/15/19 11:11 Source: patient Mode of arrival: EMS Limitations: no limitations History of Present Illness Onset (ago): day(s) 4 Location: abdomen Pain Consistency: + intermittent Current Pain Intensity: 0 Quality: + other (bloody) Associated symptoms: + denies other symptoms (abdominal pain) and + nausea/vomiting; no cough and no fever/chills The patient is a 78 year-old white female w/ PMHx antineoplastic chemotherapy induced pancytopenia, pancreatic adenocarcinoma, hx of cholecystectomy, poly neuropathy, osteoarthritis of knee, hx of hysterectomy, hydrocephalus, diabetes, bile acid malabsorption syndrome, dyslipidemia, Alzheimer disease, glaucoma, hx of dental surgery, hx of tonsillectomy, hx of varicose vein ligation, who presents to the ED w/ CC of intermittent vomiting beginning 4 days ago. The patient states she vomited 4 times this morning. She states she noticed blood in her vomit. She states she is on hospice but notes she would want to be resuscitated or intubated. The patient denies coughing, fevers, abdominal pain, chills, and change in diet. She states she is not nauseous right now. She states she takes Coumadin and notes her oncologist is Dr. Scruggs. Home Medications Home Medications Medication Instructions Recorded Confirmed Type cyanocobalamin (vitamin B-12) 1,000 mcg PO QAM tab 12/27/18 04/15/19 History 1,000 mcg tablet lovastatin 10 mg tablet 10 mg PO QAM #90 tab 12/27/18 04/15/19 History donepezil 5 mg tablet 5 mg PO HS 90 Days #90 tab 01/08/19 04/15/19 Rx memantine 10 mg tablet 10 mg PO BID #180 tab 01/08/19 04/15/19 Rx ondansetron HCl 8 mg PO Q8H 02/16/19 04/15/19 History diphenoxylate-atropine 1 tab PO QID PRN #30 tab 02/26/19 04/15/19 Rx enoxaparin 60 mg SUBCUT Q12H #60 syr 02/26/19 04/15/19 Rx mirtazapine 15 mg PO HS #30 tab 02/26/19 04/15/19 Rx lorazepam 0.5 mg tablet 0.5 mg PO Q4H PRN #100 tab 04/14/19 04/15/19 Rx bimatoprost 1 % OPB HS 04/15/19 04/15/19 History timolol maleate 1 drops OPB HS 04/15/19 04/15/19 History warfarin 4 mg PO DAILY 04/15/19 04/15/19 History Allergies Allergy/AdvReac Type Severity Reaction Status Date / Time azithromycin AdvReac Mild NAUSEA/VOMI Verified 04/15/19 12:30 TTING Sulfa (Sulfonamide AdvReac Mild Nausea/Vomi Verified 04/15/19 12:30 Antibiotics) tting Past Med/Surg History Medical History Alzheimer disease "BEGINING STAGES" Diabetes mellitus, type 2 Glaucoma Hyperlipidemia Hypertension Osteoarthritis Pancreatic adenocarcinoma NO SURGERY Poor historian Spinal stenosis Splenic infarct Surgical History H/O hysterectomy with unilateral oophorectomy History of cholecystectomy History of colonoscopy History of dental surgery History of tonsillectomy History of tonsillectomy and adenoidectomy History of varicose vein ligation Family History Father Family history of diabetes mellitus Other Coronary arteriosclerosis Social History Preferred Language: Uruguayan Communication Ability: Effective Car Repossessor Required: No Beliefs That Will Affect Care: None marital status: Current Living Situation: Spouse current occupational status: retired Other Information That Helps Us Care for You: No Feels Safe at Home: Yes Safety Concerns: Feels Safe At This Time Smoking Status: Never smoker Do You Dip or Chew Tobacco: No ; Second Hand E xposure: No ; Tobacco Cessation Education Requested by Patient: No Hx Alcohol Use: No Hx Substance Use: No Review of Systems See HPI for pertinent positives & negatives. and A total of 10 systems reviewed and were otherwise negative Physical Exam Vital Signs Vital Signs - 24 hr 04/15/19 11:10 04/15/19 11:32 04/15/19 12:32 Temperature 37.0 C Temperature Source Oral Pulse Rate 91 H Pulse Rate [Apical] 90 Pulse Rate from SpO2 Sensor Pulse Rhythm Regular Pulse Rhythm [Apical] Regular Pulse Strength Normal Pulse Strength [Apical] Respiratory Rate 16 16 Respiratory Effort / Characteristics Non-Labored Spontaneous Non-Labored Respiratory Depth Normal Normal Respiratory Pattern Regular Blood Pressure 135/87 Blood Pressure [Right Arm] 107/75 Blood Pressure Mean 103 Blood Pressure Mean [Right Arm] 85 Blood Pressure Position Lying Blood Pressure Position [Right Arm] Sitting Pulse Oximetry 99 99 100 Oxygen Delivery Method Room Air Room Air Room Air Sepsis Recent Fever Within 48 Hours No Sepsis New/Unexplained Change in Mental Status No Sepsis Action Taken by Nursing No Action Required 04/15/19 13:00 04/15/19 13:30 04/15/19 13:31 Temperature 36.9 C Temperature Source Oral Pulse Rate 92 H 88 Pulse Rate [Apical] 84 Pulse Rate from SpO2 Sensor 89 91 H Pulse Rhythm Pulse Rhythm [Apical] Regular Pulse Strength Pulse Strength [Apical] Normal Respiratory Rate 16 14 15 Respiratory Effort / Characteristics Non-Labored Spontaneous Respiratory Depth Normal Respiratory Pattern Regular Blood Pressure 125/71 Blood Pressure [Right Arm] 116/79 Blood Pressure Mean 106 Blood Pressure Mean [Right Arm] 91 Blood Pressure Position Blood Pressure Position [Right Arm] Lying Pulse Oximetry 100 100 100 Oxygen Delivery Method Room Air Room Air Room Air Sepsis Recent Fever Within 48 Hours Sepsis New/Unexplained Change in Mental Status Sepsis Action Taken by Nursing 04/15/19 14:00 04/15/19 14:01 04/15/19 14:30 Temperature Temperature Source Pulse Rate 84 91 H 105 H Pulse Rate [Apical] Pulse Rate from SpO2 Sensor 86 91 H Pulse Rhythm Pulse Rhythm [Apical] Pulse Strength Pulse Strength [Apical] Respiratory Rate 14 16 18 Respiratory Effort / Characteristics Respiratory Depth Respiratory Pattern Blood Pressure 116/65 121/64 Blood Pressure [Right Arm] Blood Pressure Mean 78 95 Blood Pressure Mean [Right Arm] Blood Pressure Position Blood Pressure Position [Right Arm] Pulse Oximetry 100 100 100 Oxygen Delivery Method Room Air Room Air Room Air Sepsis Recent Fever Within 48 Hours Sepsis New/Unexplained Change in Mental Status Sepsis Action Taken by Nursing 04/15/19 15:00 04/15/19 15:01 Temperature Temperature Source Pulse Rate 104 H 87 Pulse Rate [Apical] Pulse Rate from SpO2 Sensor 87 87 Pulse Rhythm Pulse Rhythm [Apical] Pulse Strength Pulse Strength [Apical] Respiratory Rate 19 19 Respiratory Effort / Characteristics Respiratory Depth Respiratory Pattern Blood Pressure 110/59 L Blood Pressure [Right Arm] Blood Pressure Mean 73 Blood Pressure Mean [Right Arm] Blood Pressure Position Blood Pressure Position [Right Arm] Pulse Oximetry 100 100 Oxygen Delivery Method Room Air Room Air Sepsis Recent Fever Within 48 Hours Sepsis New/Unexplained Change in Mental Status Sepsis Action Taken by Nursing GENERAL: Ill in appearance, cachectic, non-toxic. EYE EXAM: Normal conjunctiva. PERRL, no anisocoria and EOM's grossly intact w/o pain. OROPHARYNX: Dry mucous membranes. Normal dentition. NECK: Supple, no nuchal rigidity, no adenopathy, non-tender. no signs of meningismus. LUNGS: Clear to auscultation. Normal chest wall mechanics. CHEST: Port in left chest. HEART: NSR, no MRG. ABDOMEN: Mild abdominal distension. Not peritonitic. Abdomen is soft. BACK: No CVA TTP. SKIN: No rashes and no bruising. UPPER EXTREMITIES: Upper extremities are grossly normal. LOWER EXTREMITIES: 1+ edema bilaterally without redness or pain. No calf pain. NEURO EXAM: Cranial nerves II-XII grossly intact, normal speech. Moves all 4 extremities on command w/o issue. Course Course 1118: The patient was evaluated in room C3, and a complete history and physical examination were performed. 1121: Continuous Cardiac Monitoring: An order was placed for continuous cardiac monitoring. The monitor shows a rate of 91 with a irregularly irregular rhythm. 1128: I contacted the complex case manager to better understand the patient's hospice status. 1311: I discussed the patient's case with Dr. Melendez - [facility]. She will evaluate the patient for further management 1318: I reevaluated the patient. I spoke to the patient and her daughter. They agree with the plan. Administered Medications Pantoprazole Sodium 40 mg/ (Dextrose) 100 mls @ 20 mls/hr IV Q5H LATOYA Stop: 05/15/19 12:59 Last Admin: 04/15/19 14:03 Dose: 20 mls/hr Documented by: [id number] Sodium Chloride (Nss 1000ml) 1,000 mls @ 60 mls/hr IV .[id number] LATOYA Stop: 05/15/19 16:44 Last Admin: 04/15/19 17:00 Dose: 60 mls/hr Documented by: [id number] Discontinued Medications Sodium Chloride (Nss 1000ml) 1,000 mls @ 999 mls/hr IV .Q1H1M LATOYA Stop: 04/15/19 12:30 Last Infusion: 04/15/19 12:34 Dose: 0 mls/hr Documented by: [id number] Admin: 04/15/19 11:33 Dose: 999 mls/hr Documented by: [id number] Sodium Chloride (Nss 1000ml) 1,000 mls @ 999 mls/hr IV .Q1H1M ONE Stop: 04/15/19 13:34 Last Infusion: 04/15/19 14:02 Dose: 0 mls/hr Documented by: [id number] Admin: 04/15/19 13:03 Dose: 999 mls/hr Documented by: [id number] Phytonadione 5 mg/ Sodium (Chloride) 50.5 mls @ 101 mls/hr IV ONE ONE Stop: 04/15/19 13:04 Last Infusion: 04/15/19 13:33 Dose: 0 mls/hr Documented by: [id number] Admin: 04/15/19 13:03 Dose: 101 mls/hr Documented by: [id number] Pantoprazole Sodium 80 mg/ (Dextrose) 120 mls @ 480 mls/hr IV NOW ONE Stop: 04/15/19 12:59 Last Infusion: 04/15/19 13:50 Dose: 0 mls/hr Documented by: [id number] Admin: 04/15/19 13:35 Dose: 480 mls/hr Documented by: [id number] Metoclopramide HCl (Reglan) 10 mg IV NOW STA Stop: 04/15/19 11:31 Last Admin: 04/15/19 11:38 Dose: 10 mg Documented by: [id number] Critical Care Time Critical Care Time: Yes Total Critical Care Time: 41 I have personally spent 41 minutes of critical care time in the direct management of this patient. This includes bedside care, interpretation of diagnostic studies, and testing, discussion with consultants, patient, and family members, and other required patient management activities. This 41 minutes is in excess of all separately billable procedures. Medical Decision Making Differential Diagnosis Differential diagnosis includes etiologies such as diverticulosis, AVM, coagulopathy, colitis, inflammatory bowel disease, malignancy, Piper-Kim t ear, esophagitis, peptic ulcer disease, variceal bleed, gastritis, epistaxis, fissure, hemorrhoids, as well as others were entertained. Medical Records Attestation: I reviewed the patient's medical records. Home Medications Current Medication List: was personally reviewed by me Laboratory Data Attestation: I reviewed the patient's lab results. Result diagrams: 04/15/19 16:35 04/15/19 11:26 Lab Results 04/15/19 04/15/19 04/15/19 Range/Units 11:26 11:26 11:26 WBC 11.58 H (4.8-10.8) K/uL RBC 3.87 L (4.2-5.4) M/uL Hgb 12.0 (12.0-16.0) g/dL Hct 36.7 L (37-47) % MCV 94.8 (80-100) fL MCH 31.0 (25-34) pg MCHC 32.7 (32-36) g/dL RDW Std Deviation 59.8 H (36.4-46.3) fL RDW Coeff of Valdo 17.2 H (11.5-14.5) % Plt Count 384 (130-400) K/uL MPV 10.2 (7.4-10.4) fL Immature Gran % (Auto) 0.3 % Neut % (Auto) 89.7 % Lymph % (Auto) 5.4 % Steele % (Auto) 4.4 % Eos % (Auto) 0.1 % Baso % (Auto) 0.1 % Immature Gran # (Auto) 0.03 H (0.00-0.02) K/uL Neut # (Auto) 10.39 H (1.4-6.5) K/uL Lymph # (Auto) 0.63 L (1.2-3.4) K/uL Steele # (Auto) 0.51 (0.11-0.59) K/uL Eos # (Auto) 0.01 (0-0.5) K/uL Baso # (Auto) 0.01 (0-0.2) K/uL PT (9.0-12.0) Seconds INR (0.9-1.1) APTT (21.0-31.0) Seconds PTT Ratio Sodium 140 (136-145) mmol/L Potassium 3.9 (3.5-5.1) mmol/L Chloride 109 H (98-107) mmol/L Carbon Dioxide 15 L (21-32) mmol/L Anion Gap 16.0 H (3-11) BUN 19 H (7-18) mg/dl Creatinine 1.68 H (0.6-1.2) mg/dl Est Cr Clr Drug Dosing 23.2 ml/min Est GFR ( Amer) 33.6 Est GFR (Non-Af Amer) 29.0 BUN/Creatinine Ratio 11.3 (10-20) Glucose 195 H (70-99) mg/dl Lactate (0.4-2.0) mmol/L Calcium 8.7 (8.5-10.1) mg/dl Total Bilirubin 0.5 (0.2-1) mg/dl AST 12 L (15-37) U/L ALT 11 L (12-78) U/L Alkaline Phosphatase 85 (45-117) U/L Total Protein 5.1 L (6.4-8.2) gm/dl Albumin 1.9 L (3.4-5.0) gm/dl Globulin 3.2 (2.5-4.0) gm/dl Albumin/Globulin Ratio 0.6 L (0.9-2) Lipase 192 (73-393) U/L Blood Type A Positive Antibody Screen NEGATIVE Crossmatch See Detail 04/15/19 04/15/19 Range/Units 11:26 12:49 WBC (4.8-10.8) K/uL RBC (4.2-5.4) M/uL Hgb (12.0-16.0) g/dL Hct (37-47) % MCV (80-100) fL MCH (25-34) pg MCHC (32-36) g/dL RDW Std Deviation (36.4-46.3) fL RDW Coeff of Valdo (11.5-14.5) % Plt Count (130-400) K/uL MPV (7.4-10.4) fL Immature Gran % (Auto) % Neut % (Auto) % Lymph % (Auto) % Steele % (Auto) % Eos % (Auto) % Baso % (Auto) % Immature Gran # (Auto) (0.00-0.02) K/uL Neut # (Auto) (1.4-6.5) K/uL Lymph # (Auto) (1.2-3.4) K/uL Steele # (Auto) (0.11-0.59) K/uL Eos # (Auto) (0-0.5) K/uL Baso # (Auto) (0-0.2) K/uL PT 50.1 H (9.0-12.0) Seconds INR 5.5 H (0.9-1.1) APTT 41.6 H (21.0-31.0) Seconds PTT Ratio 1.5 Sodium (136-145) mmol/L Potassium (3.5-5.1) mmol/L Chloride (98-107) mmol/L Carbon Dioxide (21-32) mmol/L Anion Gap (3-11) BUN (7-18) mg/dl Creatinine (0.6-1.2) mg/dl Est Cr Clr Drug Dosing ml/min Est GFR ( Amer) Est GFR (Non-Af Amer) BUN/Creatinine Ratio (10-20) Glucose (70-99) mg/dl Lactate 1.1 (0.4-2.0) mmol/L Calcium (8.5-10.1) mg/dl Total Bilirubin (0.2-1) mg/dl AST (15-37) U/L ALT (12-78) U/L Alkaline Phosphatase (45-117) U/L Total Protein (6.4-8.2) gm/dl Albumin (3.4-5.0) gm/dl Globulin (2.5-4.0) gm/dl Albumin/Globulin Ratio (0.9-2) Lipase (73-393) U/L Blood Type Antibody Screen Crossmatch Blood Pressure Blood Pressure Findings: Elevated blood pressure Blood Pressure Disposition: further management by hospitalist FANY Angel The patient is a 78 year-old white female w/ PMHx antineoplastic chemotherapy induced pancytopenia, pancreatic adenocarcinoma, hx of cholecystectomy, polyneuropathy, osteoarthritis of knee, hx of hysterectomy, hydrocephalus, diabetes, bile acid malabsorption syndrome, dyslipidemia, Alzheimer disease, glaucoma, hx of dental surgery, hx of tonsillectomy, hx of varicose vein ligation, who presents to the ED w/ CC of intermittent vomiting beginning 4 days ago. Patient was seen and evaluated the bedside. The patient did present with concerns for hematemesis. The patient is on Coumadin as an outpatient for history of A. fib. No history of pancreatic cancer. Patient is currently on hospice. Patient does have some abdominal distention but no pain. Patient currently does not complain of any nausea and has not had any vomiting at the bedside. Blood work was obtained. Patient is not a obvious changes in her hemoglobin. Hematocrit is lower than the normal but appears improved compared to prior. Patient's kidney function shows mild FADUMO does have an elevated anion gap and slightly low bicarb. Lactate was obtained and pending. Did discuss this could be related to her dehydration or GI losses. Infection was another consideration as well as mesenteric ischemia but the patient does not have any abdominal pains and the patient has a supratherapeutic INR. The patient did receive vitamin K. Patient was started on PPI bolus and drip. I did speak the on-call hospitalist agreed to further evaluate treat the patient. Patient was admitted to the medicine service Impression & Plan GI bleed, Supratherapeutic INR, Dehydration Discharge Plan Visit Data *Final* Discharge Date/Time: 04/15/19 15:51 Chief Complaint: GI Assessment ED Provider: Leighton Valverde Discharge Problem: GI bleed, Supratherapeutic INR, Dehydration Patient Disposition: Admitted As Inpatient Discharge Instructions Interventions: ED Discharge Assessment Last Done: 04/15/19 15:51 Discharge Problem: GI bleed Qualifiers: GI bleed type/associated pathology: unspecified gastrointestinal hemorrhage type Qualified Code(s): K92.2 - Gastrointestinal hemorrhage, unspecified The scribe's documentation has been prepared under my direction and personally reviewed by me in its entirety. I confirm that the note above accurately reflects all work, treatment, procedures, and medical decision making performed by me.
[2019-04-15] MEDS: TIMOLOL MALEATE 0.5% OP SOLN 5 ML BTL OPB SCH (20:44)
[2019-04-15] MEDS: BIMATOPROST 0.01% OP SOLN 2.5 ML BTL OP SCH (20:44)
[2019-04-15] MEDS: MEMANTINE HCL 10 MG TAB PO SCH (20:45)
[2019-04-15] MEDS: MIRTAZAPINE SOLTAB 15 MG PO SCH (20:45)
[2019-04-15] MEDS ORDERED: Nursing to Pharmacy Communication ONE (21:47)
--- NOTE | 2019-04-15 22:53 | Electrocardiogram Report ---
Test Reason : Blood Pressure : / mmHG Vent. Rate : 089 BPM Atrial Rate : 089 BPM P-R Int : 140 ms QRS Dur : 076 ms QT Int : 352 ms P-R-T Axes : 068 -41 095 degrees QTc Int : 428 ms Normal sinus rhythm Left axis deviation Septal infarct Nonspecific T wave abnormality Abnormal ECG When compared with ECG of 23-FEB-2019 12:32, QRS axis Shifted left Confirmed by Clay Prasad ([id number]) on 04/15/2019 10:52:44 PM Referred By: REFERRED SELF Confirmed By:Clay Prasad
[2019-04-16 01:40] LABS: Basophils # (auto) 0.02 K/uL (0-0.2); Basophils % (auto) 0.2 %; Eosinophils # (auto) 0.07 K/uL (0-0.5); Eosinophils % (auto) 0.7 %; Hematocrit (blood only) 31.7 % (37-47); Hemoglobin 10.3 g/dL (12.0-16.0); Immature Granulocytes # (auto) 0.02 K/uL (0.00-0.02); Immature Granulocytes % (auto) 0.2 %; Lymphocytes # (auto) 0.73 K/uL (1.2-3.4); Lymphocytes % (auto) 7.5 %; Mean Corpuscular Hemoglobin 30.8 pg (25-34); Mean Corpuscular Hgb Conc 32.5 g/dL (32-36); Mean Corpuscular Volume 94.9 fL (80-100); Mean Platelet Volume 9.5 fL (7.4-10.4); Monocytes # (auto) 0.74 K/uL (0.11-0.59); Monocytes % (auto) 7.6 %; Neutrophils # (auto) 8.16 K/uL (1.4-6.5); Neutrophils % (auto) 83.8 %; Platelet Count 302 K/uL (130-400); RDW Coefficient of Variation 17.1 % (11.5-14.5); RDW Standard Deviation 59.4 fL (36.4-46.3); Red Blood Count 3.34 M/uL (4.2-5.4); White Blood Count 9.74 K/uL (4.8-10.8)
[2019-04-16] MEDS ORDERED: HEPARIN 100 UNIT/ML 5ML FLUSH FLUSH PRN (03:28)
[2019-04-16] MEDS: PANTOprazole 40 MG in DEXTROSE 5% 100 ML IV SCH ×5 (04:01→23:51)
[2019-04-16 05:52] LABS: Basophils # (auto) 0.01 K/uL (0-0.2); Basophils % (auto) 0.1 %; Eosinophils # (auto) 0.11 K/uL (0-0.5); Eosinophils % (auto) 1.1 %; Hematocrit (blood only) 29.2 % (37-47); Hemoglobin 9.7 g/dL (12.0-16.0); Immature Granulocytes # (auto) 0.01 K/uL (0.00-0.02); Immature Granulocytes % (auto) 0.1 %; Lymphocytes % (auto) 5.9 %; Mean Corpuscular Hemoglobin 31.7 pg (25-34); Mean Corpuscular Hgb Conc 33.2 g/dL (32-36); Mean Corpuscular Volume 95.4 fL (80-100); Mean Platelet Volume 9.5 fL (7.4-10.4); Monocytes # (auto) 0.77 K/uL (0.11-0.59); Monocytes % (auto) 7.5 %; Neutrophils # (auto) 8.75 K/uL (1.4-6.5); Neutrophils % (auto) 85.3 %; Platelet Count 289 K/uL (130-400); RDW Coefficient of Variation 17.2 % (11.5-14.5); RDW Standard Deviation 59.6 fL (36.4-46.3); Red Blood Count 3.06 M/uL (4.2-5.4); White Blood Count 10.25 K/uL (4.8-10.8)
[2019-04-16 06:10] LABS: INR 1.2 (0.9-1.1); Prothrombin Time 11.9 Seconds (9.0-12.0)
[2019-04-16 06:28] LABS: Albumin Globulin Ratio 0.6 (0.9-2); Albumin Level 1.8 gm/dl (3.4-5.0); BUN Creatinine Ratio 11.9 (10-20); Bilirubin,Total 0.7 mg/dl (0.2-1); Calcium 8.2 mg/dl (8.5-10.1); Est GFR (African American) 36.8; Est GFR (Non-African American) 31.7; Globulin 2.8 gm/dl (2.5-4.0); Total Protein 4.6 gm/dl (6.4-8.2)
[2019-04-16] MEDS: MEMANTINE HCL 10 MG TAB PO SCH ×3 (07:34→21:43)
[2019-04-16] MEDS: LOVASTATIN 20 MG TAB PO SCH (07:35)
[2019-04-16] MEDS: CYANOCOBALAMIN 500 MCG TABLET (VITAMIN B-12) PO SCH (07:35)
[2019-04-16] MEDS: SODIUM CHLORIDE 0.9% 1000ML 1,000 ML IV SCH (09:19)
[2019-04-16 10:02] LABS: Hematocrit (blood only) 31.4 % (37-47); Hemoglobin 10.4 g/dL (12.0-16.0); Mean Corpuscular Hemoglobin 31.3 pg (25-34); Mean Corpuscular Hgb Conc 33.1 g/dL (32-36); Mean Corpuscular Volume 94.6 fL (80-100); Mean Platelet Volume 9.1 fL (7.4-10.4); Platelet Count 279 K/uL (130-400); RDW Coefficient of Variation 17.3 % (11.5-14.5); RDW Standard Deviation 59.5 fL (36.4-46.3); Red Blood Count 3.32 M/uL (4.2-5.4); White Blood Count 10.71 K/uL (4.8-10.8)
--- NOTE | 2019-04-16 15:54 | Palliative Care Consultation ---
Date of Consultation April 16, 2019 Assessment & Plan (1) Goals of care, counseling/discussion: -78 year old female patient with PM pancreatic cancer with peritoneal mets, HTN, Alzheimer's Dementia, DM2, and others, presented to the hospital last evening with blood in her vomit. Patient was in hospital at the end of January/beginning of February, and was discharged to rehab at [facility]. From there, patient went to [facility] with hospice. Patient then began feeling ill in the week prior, was vomiting and feeling extremely fatigued. On admission, patient had some dehydration and elevated creatinine. Hgb was 12, but patient was having some blood in her vomit. She was transfused with FFP to reverse INR of 5.5 and admitted for monitoring. Today, patient is feeling better. Hgb is 10.4, but she also received IVF so could be dilutional. Creatinine is better. Patient and daughter had stated that they did not want invasive workup or further testing. Palliative care is reconsulted to have further discussion about goals and plan. -Met with patient, her daughters including Darleen, and many other family members in room 460 along with Esperanza Sanches PA-C. -Patient's medical condition was explained in detail. At this point, we are just monitoring for any further signs of bleeding and slowly reintroducing diet. Patient is tolerating clear liquids so far. Family verbalized understanding. Patient adamantly refuses any further workup such as CT scan, etc. But is okay with another blood draw in the morning to check CBC. Family in agreement. -Patient came from [facility] with hospice and plans to return there upon discharge as long as she is able. Case management is involved. -Patient is a DNR/DNI here in the hospital. Apparently there was question of her code status at [facility]. Will clarify with patient and family prior to milan nugent. -Currently no symptom management needs at this time. We will follow. (2) Metastatic adenocarcinoma to pancreas: (3) GI bleed: GI bleed type/associated pathology: unspecified gastrointestinal hemorrhage type Qualified Code(s): K92.2 - Gastrointestinal hemorrhage, unspecified (4) Dehydration: History of Present Illness Attending Physician: Max Stallworth DO History of Present Illness This 78 year old female patient with PM pancreatic cancer with peritoneal mets, HTN, Alzheimer's Dementia, DM2, and others, presented to the hospital last evening with blood in her vomit. Patient was in hospital at the end of January/beginning of February, and was discharged to rehab at [facility]. From there, patient went to [facility] home with hospice. Patient then began feeling ill in the week prior, was vomiting and feeling extremely fatigued. On admission, patient had some dehydration and elevated creatinine. Hgb was 12, but patient was having some blood in her vomit. She was transfused with FFP to reverse INR of 5.5 and admitted for monitoring. Today, patient is feeling better. Hgb is 10.4, but she also received IVF so could be dilutional. Creatinine is better. Patient and daughter had stated that they did not want invasive workup or further testing. Palliative care is reconsulted to have further discussion about goals and plan. Thank you kindly for this consult. Palliative care team will follow as needed. Allergies Allergy/AdvReac Type Severity Reaction Status Date / Time azithromycin AdvReac Mild NAUSEA/VOMI Verified 04/15/19 12:30 TTING Sulfa (Sulfonamide AdvReac Mild Nausea/Vomi Verified 04/15/19 12:30 Antibiotics) tting Home Medications Home Medications Medication Instructions Recorded Confirmed Type cyanocobalamin (vitamin B-12) 1,000 mcg PO QAM tab 12/27/18 04/15/19 History 1,000 mcg tablet lovastatin 10 mg tablet 10 mg PO QAM #90 tab 12/27/18 04/15/19 History donepezil 5 mg tablet 5 mg PO HS 90 Days #90 tab 01/08/19 04/15/19 Rx memantine 10 mg tablet 10 mg PO BID #180 tab 01/08/19 04/15/19 Rx ondansetron HCl 8 mg PO Q8H 02/16/19 04/15/19 History diphenoxylate-atropine 1 tab PO QID PRN #30 tab 02/26/19 04/15/19 Rx enoxaparin 60 mg SUBCUT Q12H #60 syr 02/26/19 04/15/19 Rx mirtazapine 15 mg PO HS #30 tab 02/26/19 04/15/19 Rx lorazepam 0.5 mg tablet 0.5 mg PO Q4H PRN #100 tab 04/14/19 04/15/19 Rx bimatoprost 1 % OPB HS 04/15/19 04/15/19 History timolol maleate 1 drops OPB HS 04/15/19 04/15/19 History warfarin 4 mg PO DAILY 04/15/19 04/15/19 History Patient History Medical History Alzheimer disease "BEGINING STAGES" Diabetes mellitus, type 2 Glaucoma Hyperlipidemia Hypertension Osteoarthritis Pancreatic adenocarcinoma NO SURGERY Poor historian Spinal stenosis Splenic infarct Surgical History H/O hysterectomy with unilateral oophorectomy History of cholecystectomy History of colonoscopy History of dental surgery History of tonsillectomy History of tonsillectomy and adenoidectomy History of varicose vein ligation Family History Father Family history of diabetes mellitus Other Coronary arteriosclerosis Social History Preferred Language: Kosovan Communication Ability: Effective Coating Machine Feeder Required: No Beliefs That Will Affect Care: None marital status: Current Living Situation: Spouse current occupational status: retired Other Information That Helps Us Care for You: No Feels Safe at Home: Yes Safety Concerns: Feels Safe At This Time Smoking Status: Never smoker Do You Dip or Chew Tobacco: No ; Second Hand Exposure: No ; Tobacco Cessation Education Requested by Patient: No Hx Alcohol Use: No Hx Substance Use: No Review of Systems Review of Systems: + weakness, + fatigue no dysphagia no cough or SOB no chest pain or edema currently no vomiting or nausea no musculoskeletal pain Physical Exam Constitutional: + ill appearing and + frail appearing ENMT: external ear and nose normal, oropharynx normal Respiratory: normal respiratory effort; no labored breathing Cardiovascular: Rate/Rhythm: regular rate Extremities: no edema Skin: + jaundice Neurologic: moves all extremities and awake Psychiatric: Orientation: alert and oriented x 3 (some forgetfulness) Results & Data Vital Signs (Past 12 Hours) Vital Signs Temp Pulse Resp BP Pulse Ox 04/16/19 15:31 36.6 C 83 18 103/66 98 04/16/19 08:15 36.6 C 92 H 18 99/62 L 99 Time Spent Midlevel 70 minutes with >50% of the time spent at bedside with patient and family discussing condition and GOC.
[2019-04-16] MEDS ORDERED: SODIUM CHLORIDE 0.9% 500 ML IV SCH (17:00)
--- NOTE | 2019-04-16 18:20 | Hospitalist Progress Note ---
Date of Service April 16, 2019 Assessment & Plan (1) GI bleed: - Uncertain to the extent of this - per patient report the blood in the emesis was more streaks instead of coffee ground or copious blood - she has been feeling under the weather for about a week prior to the vomiting -- Given multiple episodes of vomiting and supratherapeutic INR it is possible the streaking of blood could be Piper Kim tears - DDx - Piper Kim tears, PUD, or it is possible for tumor advancement/ero sions - Patient and family do agree to at least a CT scan to better assess the current situation - patient however does not want too invasive of testing per our discussion today - Depending on findings can help to determine possible etiology of bloody emesis - however if PUD or similar it is unlikely to be found on CT - She is S/P 2 units FFP with INR now at 1.2; Hgb 10.4 which is slightly reduced from admission but suspect that is due to dilution from fluids as baseline appears likely 8.9-10 -- 2 units PRBC are available if Hgb does decrease - patient would like to avoid frequent blood draws and agrees to labs in AM and agrees if she would have more hematemesis or feeling unwell to check labs at that time - No further nausea or emesis noted today; tolerating a clear liquid diet without abdominal pain, nausea, vomiting - can advance pending CT scan findings and patients symptoms. Patient does express she would like to go back on hospice services when leaving the hospital - Continue Protonix gtt at current time - await CT and any further symptoms - and likely can convert to oral option for PUD consideration - Had a long discussion with numerous family members and patient as they are under the impression she has days to live - did explain that if the worse case scenario of internal bleeding that life expectancy would be short without intervention however at current time her BP is stable and no further emesis/hematemesis has occurred. Hgb is slightly decreased from admission but this can be from dilution and is actually now more her baseline. It would be hard to predict timeline of at current time - Discussed with patient in regards to code status. It appears she was made DNR/DNI on last admission however per Toña Garay she is a Full Code on Hospice. I spoke with the patient who is alert and oriented currently. When given examples of CPR/Intubation she states that she would want all of that done. She states she does not remember being a DNR. She was able to repeat back what we were discussing and that she would want to be a full code. Discussed with daughter who states that the family was under the impression of DNR/DNI. No formal POA has been established but the and daughter make the decisions. Explained how she currently seems to comprehend the conversation I was having with her but this does need to be readdressed given patient with known dementia. Did explain to her daughter Darleen that I will have her a full code tonight as she does express competence to make this decision but a POLST/conversation should take place as patient even reports she would like to return on hospice services. Typically would not expect a full code status on hospice services. - Palliative care following - discussed with patient, family, Cristina altogether at bedside - will need to discuss discharge to a facility. Family is concerned that personal care may be too independent of care and looking towards possible SNF with hospice. Patient does not want [facility] and can F/U with case management (2) Supratherapeutic INR: - Reversed with FFP - bridged the topic with family about consideration for D/Cing Coumadin. Given poor appetite she may be at risk for ongoing supratherapeutic readings. She is just on Coumadin and finished bridging in the past and follows with [facility]. This can be further discussed prior to D/C - Per previous documentation she was started on this due to splenic infarct (3) Acute kidney injury: - Cr increased on admission - starting to trend down and likely prerenal in the setting of dehydration - Continue gently hydration and patient did agree to AM labs and will re-assess (4) Metastatic adenocarcinoma to pancreas: - Palliative approach - no further treatment (5) Dyslipidemia: - Continue Lovastatin 10 mg daily - can discuss D/C of this as long-term benefit not necessary Subjective Patient reports feeling better today. No nausea and no vomiting so far today. States she has not felt well in about a week then started having several episodes of vomiting with just streaking of blood in her emesis. Denies coffee ground emesis or copious bloody emesis. She has no abdominal pain. Started some clear liquids and so far tolerating kayden chapis without issue. Had an extensive discussion with multiple family members and patient as they were under the impression of only having a couple days to live. Explained that without imaging we cannot tell if there is something more invasive going on. Explained that even a CT may not capture everything. Patient does not want any invasive testing but does agree to a CT scan. Given her improvement in symptoms and only streaking of blood this could be a Piper Kim tear from excessive vomiting. Hgb is stable but a little lower then admission however suspect dilution given fluids. Baseline appearing around 8.9-10 and currently at 10.4. BP remaining stable. INR 1.2 since FFP Review of Systems Constitutional: + fatigue; no fever, no chills and no anorexia (but has been decreased) Respiratory: no cough and no dyspnea Cardiovascular: no chest pain Gastrointestinal: + diarrhea/loose stools; no abdominal pain, no nausea, no vomiting, no coffee ground emesis and no constipation reporting blood streaked emesis prior to admission Genitourinary: no dysuria Musculoskeletal: no body aches Integumentary: no rash Physical Exam Constitutional: + frail appearing; no acute distress and not ill appearing Eyes: + anicteric sclerae ENMT: Ears: no hearing impairment Neck: trachea midline Respiratory: normal respiratory effort, lungs clear to auscultation Cardiovascular: RRR, no murmur, no edema Gastrointestinal (Abdomen): Inspection/Auscultation: normal bowel sounds Percussion/Palpation: abdomen soft; abdomen nontender Musculoskeletal: Head/Neck/Chest: normocephalic and head atraumatic Skin: no rashes, warm and dry Neurologic: moves all extremities Psychiatric: A+Ox3, euthymic affect Results & Data Vital Signs (Past 12 Hours) Vital Signs Temp Pulse Resp BP Pulse Ox 04/16/19 15:31 36.6 C 83 18 103/66 98 04/16/19 08:15 36.6 C 92 H 18 99/62 L 99 PG Care Time/CCT Total # of Minutes Spent Total Time Spent with Patient: Total time spent is greater than 50% in coordination of care (as documented) at patient's floor/unit and/or counseling patient: (1) GI bleed GI bleed type/associated pathology: unspecified gastrointestinal hemorrhage type Qualified Code(s): K92.2 - Gastrointestinal hemorrhage, unspecified
[2019-04-16] MEDS ORDERED: POTASSIUM CHLORIDE 20 MEQ in SODIUM CHLORIDE 0.9% 1000ML 1,000 ML IV SCH (20:20)
[2019-04-16] MEDS: NSS + 20MEQ KCL 20 MEQ/1,000 ML BAG IV SCH (21:08)
[2019-04-16] MEDS: TIMOLOL MALEATE 0.5% OP SOLN 5 ML BTL OPB SCH ×2 (21:08→21:45)
[2019-04-16] MEDS: BIMATOPROST 0.01% OP SOLN 2.5 ML BTL OP SCH ×2 (21:08→21:44)
[2019-04-16] MEDS: MIRTAZAPINE SOLTAB 15 MG PO SCH ×2 (21:09→21:45)
[2019-04-17] MEDS: PANTOprazole 40 MG in DEXTROSE 5% 100 ML IV SCH ×2 (05:53→10:07)
[2019-04-17 06:23] LABS: Hematocrit (blood only) 30.1 % (37-47); Hemoglobin 9.9 g/dL (12.0-16.0); Mean Corpuscular Hemoglobin 31.2 pg (25-34); Mean Corpuscular Hgb Conc 32.9 g/dL (32-36); Mean Platelet Volume 9.6 fL (7.4-10.4); Platelet Count 266 K/uL (130-400); RDW Standard Deviation 59.6 fL (36.4-46.3); Red Blood Count 3.17 M/uL (4.2-5.4); White Blood Count 6.62 K/uL (4.8-10.8)
[2019-04-17 06:37] LABS: INR 1.1 (0.9-1.1); Prothrombin Time 11.1 Seconds (9.0-12.0)
[2019-04-17 06:52] LABS: Albumin Level 1.6 gm/dl (3.4-5.0); BUN Creatinine Ratio 10.7 (10-20); Creatinine Clr Calc Pharmacy 25.8 ml/min; Est GFR (African American) 38.2
[2019-04-17 06:54] LABS: Albumin Globulin Ratio 0.6 (0.9-2); Bilirubin,Total 0.6 mg/dl (0.2-1); Globulin 2.8 gm/dl (2.5-4.0); Total Protein 4.4 gm/dl (6.4-8.2)
[2019-04-17 07:03] VITALS: O2SAT 97
[2019-04-17 08:49] LABS: Appearance Urine Clear (Clear); Bilirubin Urine Negative (Negative); Blood Urine Negative (Negative); Color Urine Dark Yellow; Glucose Urine UA Negative (Negative); Ketones Urine Trace (Negative); Leukocyte Esterase Urine 1+ (Negative); Nitrite Urine Negative (Negative); Protein Urine 1+ (Negative); Specific Gravity Urine 1.022 (1.000-1.030); Urobilinogen Urine Negative (Negative); pH Urine 5.5 (4.5-7.5)
[2019-04-17] MEDS: LOVASTATIN 20 MG TAB PO SCH (09:00)
[2019-04-17] MEDS: CYANOCOBALAMIN 500 MCG TABLET (VITAMIN B-12) PO SCH (09:00)
[2019-04-17] MEDS: MEMANTINE HCL 10 MG TAB PO SCH (09:01)
[2019-04-17 09:08] LABS: Bacteria Urine Automated 1+ (Negative); Mucus Urine Present (None Prsent); RBC Urine Automated 0-4 /hpf (0-4)
--- NOTE | 2019-04-17 09:45 | Palliative Care Progress Note ---
Date of Service April 17, 2019 Assessment & Plan (1) Goals of care, counseling/discussion: -Patient is weak today. Extremely tired. -No more nausea or vomiting. Hgb stable at 9.9. Patient declined getting the CT abd/pelvis last night and again this morning. -Had a long discussion with patient about code status again. Patient stated, "Yes, if I pass out, try to bring me back once." I explained that "passing out" and her heart stopping or stopping breathing were very different things. I explained the process of resuscitation, and patient stated, "Oh my, no. I don't want any of that." I reiterated again that I would make her a DNR/DNI-- she agreed. -I also called patient's daughter/POA Darleen Raymundo as well as patient's Ryan and spoke with both of them for a length of time. I explained the DNR to both of them and they both were relieved that patient agreed to DNR. Pawel pfeiffer's daughter agrees with me that while patient is oriented and able to communicate her wishes, it is difficult to say that she truly understands the complexity of her illness and the situation. -I discussed the POLST form with patient, Darleen and Ryan. Completed as follows: DNR, comfort measures only, abx with comfort as the goal, trial of IVF but no feeding tube. I signed it and left it at bedside for family to sign when they arrive. Patient gave permission for either Aixa or Ryan to sign. -Plan is for patient to return to [facility] on comfort/hospice. -Currently no symptom management needs at this time. (2) Metastatic adenocarcinoma to pancreas: (3) GI bleed: (4) Dehydration: Subjective Patient is extremely tired and weak today. She states she did not sleep well last night. Patient's nurse states patient is extremely weak-- was unable to ambulate to bathroom but able to get to bedside commode. Had small bout of diarrhea. No nausea or vomiting. Long discussion with patient and her family again about comfort measures and code status. See A&P. Review of Systems Review of Systems: + weakness, + fatigue no dysphagia no cough or SOB no chest pain or edema currently no vomiting or nausea no musculoskeletal pain Physical Exam Constitutional: + ill appearing and + frail appearing ENMT: external ear and nose normal, oropharynx normal Respiratory: normal respiratory effort; no labored breathing Cardiovascular: Rate/Rhythm: regular rate Extremities: no edema Skin: + jaundice Neurologic: moves all extremities and awake Psychiatric: Orientation: alert and oriented x 3 (some forgetfulness) Results & Data Vital Signs (Past 12 Hours) Vital Signs Temp Pulse Resp BP Pulse Ox 04/17/19 06:59 36.7 C 86 18 105/69 97 04/16/19 23:59 36.4 C L 80 20 98/63 L 96 PG Care Time/CCT Prolonged Care Time Prolonged Care Time: Yes Total Prolonged Care Time: 65 Time Spent Midlevel 65 minutes with >50% of time spent at bedside with patient and family discussing condition, goals, comfort and POLST. (1) GI bleed GI bleed type/associated pathology: unspecified gastrointestinal hemorrhage type Qualified Code(s): K92.2 - Gastrointestinal hemorrhage, unspecified
[2019-04-17] MEDS: NSS + 20MEQ KCL 20 MEQ/1,000 ML BAG IV SCH (13:56)
[2019-04-17 15:07] VITALS: BP 107/73; PULSE 91; TEMP 97.9
--- NOTE | 2019-04-17 22:17 | Discharge Summary ---
Date of Service April 17, 2019 Admission HPI Per Admitting Provider The patient is a 78 years old female with past medical history of metastatic pancreatic adenocarcinoma stage IV, hypertension, hyperlipidemia, diabetes mellitus type 2, Alzheimer's disease presents with hematemesis that started this morning. Patient was recently diagnosed with pancreatic cancer and started on chemotherapy Gemcitabine and Abraxane and after the first round of chemotherapy she became very weak and bedbound. Patient was recently hospitalized in February 2019 and at that point she decided to embrace palliative care and hospice rather than continue chemotherapy which was making her very nauseated and had protracted vomiting. Patient decided to be DNR/DNI she was spending her time at [facility]. I met with patient and her daughter and the daughter spoke to patient's who is also bedbound and oxygen dependent and they told me that patient would like to continue to be in hospice while in situation where her INR is supratherapeutic she would like to reverse it and if necessary to receive 1 to 2 unit of blood and to be discharged home on comfort care and hospice again. We discussed possible GI procedures and patient and her daughter declined it. They were okay with 1 to 2 units of blood and any blood products that will stop GI bleed. Labs are reviewed: WBC is 11.58, hemoglobin 12, hematocrit 36.7, platelets 384, PT 50.1, INR 5.5, APTT 41.6,. Sodium 140, potassium 3.9, chloride 109, anion gap 16, BUN 19, creatinine 1.68, GFR 29, glucose 195, lactate 1.1, calcium 8.7, AST 12, ALT 11. Decision was made to admit patient to [facility] for blood transfusion and FFP and supratherapeutic INR. Principal Diagnosis Pancreatic cancer, stage IV Discharge Exam Constitutional WD/WN, vitals as above + ill appearing and + cachectic Eyes PERRL, conjunctivae normal, anicteric sclerae ENMT external ear and nose normal, oropharynx normal Neck trachea midline, no thyromegaly Respiratory normal respiratory effort, lungs clear to auscultation Auscultation: + diminished lung sounds (bases) Cardiovascular RRR, no murmur, no edema Gastrointestinal (Abdomen) normal bowel sounds, soft, nontender, no hepatosplenomegaly Musculoskeletal Head/Neck/Chest: normocephalic and head atraumatic Extremities: extremities normal to inspection and + abnormal strength (diffuse weakness) Skin no rashes, warm and dry Neurologic patellar DTR's 2+ bilat, sensation intact and PERRL, EOMI, accommodation nl, no face palsy, no dysarthria Psychiatric Orientation: oriented x 3; + not alert (lethargic) Lymphatic no cervical or axillary lymphadenopathy Discharge Data Allergies Allergy/AdvReac Type Severity Reaction Status Date / Time azithromycin AdvReac Mild NAUSEA/VOMI Verified 04/15/19 12:30 TTING Sulfa (Sulfonamide AdvReac Mild Nausea/Vomi Verified 04/15/19 12:30 Antibiotics) tting Consultations 04/15/19 13:15 ED Decision to Admit Stat 04/16/19 13:43 Consult Palliative Care Routine Ordered Studies 04/16/19 16:53 CT abd pelvis IV con only Routine Hospital Course (1) GI bleed: Initially thought to have hematemesis and the situation was suspected to be grave however, she actually had vomiting with just a scant amount of blood, likely from excessive vomiting Hb remained stable, never required blood transfusion Palliative care involved, discussed plans with patient and her family will return to personal group home on hospice the patient is very weak and debilitated, not getting up from bed all her needs will be met at personal group home could always transition to SNF if she became too much for personal care staff and Hospice (2) Supratherapeutic INR: - Reversed with FFP will STOP coumadin on discharge as there is no benefit to taking it on hospice (3) Acute kidney injury: - Cr increased on admission - starting to trend down and likely prerenal in the setting of dehydration gave fluids while here (4) Metastatic adenocarcinoma to pancreas: - Palliative approach - no further treatment (5) Dyslipidemia: stop Lovastatin due to hospice care Total Time Total Time Spent Total Time Spent (In Minutes): 32 minutes Total Time Includes: Examination of the Patient, Discharge Planning, Medication Reconciliation, Communication With Other Providers (Cristina ARMSTRONG, case management) and Other (discussed plan with family at the bedside) Discharge Plan Discharge Items Patient Disposition: Personal Residential Reason For Visit: GI BLEED Discharge Diagnosis: Metastatic pancreatic cancer GI bleed, anemia Deconditioning Condition on Discharge: Fair Goals: hospice care treat symptoms Activity: As commented below Activity Comment: bedrest, bathroom priveleges if help available Non-emergency contact: Primary Care Provider Call non-emergency contact if: you have any medication questions, your symptoms worsen and your pain is not controlled Follow-up/Referrals: Haseeb Mills MD [Primary Care Provider] - Diet: Regular Addtl Attending Provider Instructions: Medications: discontinued Lovenox, Coumadin and Lovastatin only continue medications that provided comfort, control symptoms resume Hospice care at [facility] only reason to return to hospital would be if you had pain, shortness of breath that is unable to be managed by hospice care as outpatient In summary, you presented with some vomiting with a small amount of blood at the tail end of vomiting Hemoglobin is stable, 9.9 today, no evidence of active bleeding or hemorrhage recommend that you no longer take Lovenox and/or Coumadin use Ativan as needed for anxiety use Zofran as needed for any nausea hospice can use Roxanol (liquid morphine) if you exeperience any pain eat and drink what you can, for comfort purposes Pending Studies at Discharge: No Stand-Alone Forms: My VTM, Smoking Cessation Skilled Items Patient informed of condition?: Yes DNR: Yes Discharge Level of Care: Other Communicable Disease: No Discharge Prognosis: Deteriorating Lines: None Urinary Catheter: No Medications and DC Order Prescriptions: Continued lorazepam 0.5 mg tablet 0.5 mg PO Q4H PRN (Reason: anxiety) Qty: 100 RF: 5 cyanocobalamin (vitamin B-12) 1,000 mcg tablet 1,000 mcg PO QAM RF: 0 memantine 10 mg tablet 10 mg PO BID Qty: 180 RF: 3 donepezil 5 mg tablet 5 mg PO HS 90 Days Qty: 90 RF: 3 ondansetron HCl 8 mg tablet 8 mg PO Q8H RF: 0 diphenoxylate-atropine 2.5-0.025 mg Tablet 1 tab PO QID PRN (Reason: diarrhea) Qty: 30 RF: 0 mirtazapine 15 mg Tablet,Disintegrating 15 mg PO HS Qty: 30 RF: 0 bimatoprost 0.03 % drops 1 % OPB HS RF: 0 timolol maleate 0.5 % drops, once daily 1 drops OPB HS RF: 0 Discontinued lovastatin 10 mg tablet 10 mg PO QAM Qty: 90 RF: 0 enoxaparin 60 mg/0.6 mL Syringe 60 mg subcut Q12H Qty: 60 RF: 0 warfarin 4 mg tablet 4 mg PO DAILY RF: 0 Discharge Orders: Discharge Order (Routine); Ordered 04/17/19 Ordered By: Max Stallworth Admission Data Admit Date/Time: 04/15/19 15:26 Attending Provider: Max Stallworth Admit Provider: Daniel Melendez Primary Care Provider: Haseeb Mills Other Providers: Daniel Melendez ; Estela Fry ; [facility] Other Interventions: Discharge Summary Assessment (RN) Last Done: 04/17/19 12:23 DC Date/Time DO NOT enter until pt leaves facility: 04/17/19 16:50 Coding Level of Care Code D/C Day Management >30 mins Diagnoses GI bleed K92.2 GI bleed type/associated pathology: unspecified gastrointestinal hemorrhage type Supratherapeutic INR R79.1 Acute kidney injury N17.9 Metastatic adenocarcinoma to pancreas C78.89 Dyslipidemia E78.5
== END 2019-04-17 16:50 | disposition hospice, home (50) | DRG 378 ==
LOC: ED 11:01 → SUATTDRO 15:26 → 4W 15:26